=== PATIENT | female | born 1940 | race Caucasian/White ===

== ENCOUNTER → 2023-11-29 10:27 | Outpatient (REF) | payer MEDICARE, OTHER, SELFPAY ==
[2023-11-29 10:47] LABS: % Basophils 0.4 % (0-2); % Eosinophils 2.8 % (0-6); % Immature Granulocytes 0.4 % (0-0.5); % Lymphocytes 30.4 % (20.5-51.1); % Monocytes 14.2 % (1.7-9.3); % Neutrophils 51.8 % (42.2-75.2); Absolute Eosinophils 0.2 10^3/uL (0-0.7); Absolute Lymphocytes 1.7 10^3/uL (1.2-3.4); Absolute Monocytes 0.8 10^3/uL (0.1-0.6); Hematocrit 29.4 % (37.0-47.0); Hemoglobin 9.9 g/dL (12.0-16.0); Mean Corp Hgb Conc. 33.7 g/dL (33.0-37.0); Mean Corpuscular Hgb 30.7 pg (27.0-31.0); Nucleated Red Blood Cells % 0 %; Platelet Count 165 10^3/uL (130-400); Red Blood Cell Count 3.23 10^6/uL (4.20-5.40); Red Cell Dist. Width 12.8 % (11.5-14.5); White Blood Cell Count 5.7 10^3/uL (4.8-10.8)
[2023-11-29 10:56] LABS: Blood Urea Nitrogen 24 mg/dl (7-17); Calcium 9.3 mg/dl (8.4-10.2); Carbon Dioxide 25 mmol/L (22-30); Chloride 103 mmol/L (98-107); Glucose 87 mg/dl (70-99); Magnesium 1.8 mg/dl (1.6-2.3); Potassium 4.3 mmol/L (3.5-5.1); Sodium 137 mmol/L (135-145); eGFR > 60.00
[2023-11-29 11:29] LABS: TSH 3.24 uIU/ml (0.47-4.68)
== END ==
LOC: OLABN 10:27
PROVIDERS: ATTENDING PHYSICIAN Student in an Organized Health Care Education/Training Program
DX: I10 Essential (primary) hypertension (principal); E03.9 Hypothyroidism, unspecified; E83.42 Hypomagnesemia
CPT/HCPCS: 36415; 80048; 83735; 84443; 85025

== ENCOUNTER → 2023-12-04 09:49 | Outpatient (REF) | payer MEDICARE, OTHER, SELFPAY ==
[2023-12-04 13:16] LABS: Vitamin B12 451 pg/ml (239-931)
== END ==
LOC: OLABN 09:49
PROVIDERS: ATTENDING PHYSICIAN Student in an Organized Health Care Education/Training Program
DX: D64.9 Anemia, unspecified (principal); D51.0 Vitamin B12 deficiency anemia due to intrinsic factor deficiency
CPT/HCPCS: 36415; 82607

== ENCOUNTER → 2024-02-16 09:19 | Outpatient (REF) | payer MEDICARE, OTHER, SELFPAY ==
[2024-02-16 10:06] LABS: % Basophils 0.6 % (0-2); % Immature Granulocytes 0.4 % (0-0.5); % Lymphocytes 36.7 % (20.5-51.1); % Monocytes 13.6 % (1.7-9.3); % Neutrophils 44.7 % (42.2-75.2); Absolute Eosinophils 0.2 10^3/uL (0-0.7); Absolute Lymphocytes 1.9 10^3/uL (1.2-3.4); Absolute Monocytes 0.7 10^3/uL (0.1-0.6); Absolute Neutrophils 2.3 10^3/uL (1.4-6.5); Hematocrit 25.8 % (37.0-47.0); Hemoglobin 8.4 g/dL (12.0-16.0); Mean Corp Hgb Conc. 32.6 g/dL (33.0-37.0); Mean Corpuscular Hgb 29.6 pg (27.0-31.0); Mean Corpuscular Volume 90.8 fL (81.0-99.0); Mean Platelet Volume 10.6 fL (7.4-10.4); Nucleated Red Blood Cells % 0 %; Platelet Count 177 10^3/uL (130-400); Red Blood Cell Count 2.84 10^6/uL (4.20-5.40); Red Cell Dist. Width 12.8 % (11.5-14.5); White Blood Cell Count 5.2 10^3/uL (4.8-10.8)
[2024-02-16 10:22] LABS: Iron 60 ug/dl (37-170)
[2024-02-16 10:32] LABS: Percent Saturation 29 % (20-50); Total Iron Binding Capacity 204 ug/dl (265-497)
== END ==
LOC: OLABN 09:19
PROVIDERS: ATTENDING PHYSICIAN Student in an Organized Health Care Education/Training Program
DX: E46 Unspecified protein-calorie malnutrition (principal)
CPT/HCPCS: 36415; 82728; 83540; 83550; 85025

== ENCOUNTER → 2024-03-19 10:29 | Outpatient (REF) | payer MEDICARE, OTHER, SELFPAY ==
[2024-03-19 11:39] LABS: Hematocrit 26.4 % (37.0-47.0); Hemoglobin 8.6 g/dL (12.0-16.0); Mean Corp Hgb Conc. 32.6 g/dL (33.0-37.0); Mean Corpuscular Hgb 30.5 pg (27.0-31.0); Mean Corpuscular Volume 93.6 fL (81.0-99.0); Mean Platelet Volume 10.4 fL (7.4-10.4); Platelet Count 165 10^3/uL (130-400); Red Blood Cell Count 2.82 10^6/uL (4.20-5.40); Red Cell Dist. Width 13.4 % (11.5-14.5)
[2024-03-19 12:11] LABS: Iron 49 ug/dl (37-170)
== END ==
LOC: OLABN 10:29
PROVIDERS: ATTENDING PHYSICIAN Student in an Organized Health Care Education/Training Program
DX: D50.9 Iron deficiency anemia, unspecified (principal)
CPT/HCPCS: 36415; 82728; 83540; 85027

== ENCOUNTER 2024-07-12 08:11 | Day surgery (SDC) | payer MEDICARE, OTHER, SELFPAY ==
[2024-07-12 08:31] VITALS: BMI 20.4
[2024-07-12 08:45] VITALS: BP 193/116
[2024-07-12 08:52] LABS: Hematocrit 32.5 % (37.0-47.0); Hemoglobin 10.8 g/dL (12.0-16.0); Mean Corp Hgb Conc. 33.2 g/dL (33.0-37.0); Mean Corpuscular Hgb 28.9 pg (27.0-31.0); Mean Corpuscular Volume 86.9 fL (81.0-99.0); Mean Platelet Volume 9.8 fL (7.4-10.4); Platelet Count 201 10^3/uL (130-400); Red Blood Cell Count 3.74 10^6/uL (4.20-5.40); Red Cell Dist. Width 13.2 % (11.5-14.5); White Blood Cell Count 6.9 10^3/uL (4.8-10.8)
[2024-07-12 09:05] VITALS: BP 193/116
[2024-07-12 09:20] VITALS: BP 179/101
[2024-07-12 09:20] LABS: ALT (SGPT) < 10 U/L (0-35); AST (SGOT) 18 U/L (14-36); Alkaline Phosphatase 96 U/L (38-126); Blood Urea Nitrogen 15 mg/dl (7-17); Calcium 9.8 mg/dl (8.4-10.2); Carbon Dioxide 26 mmol/L (22-30); Chloride 100 mmol/L (98-107); Estimated Creatinine Clearance 55 ml/min; Glucose 94 mg/dl (70-99); Potassium 4.5 mmol/L (3.5-5.1); Sodium 138 mmol/L (135-145); Total Bilirubin 0.6 mg/dl (0.2-1.3); eGFR > 60.00
[2024-07-12 12:45] VITALS: BP 148/99
[2024-07-12 12:52] VITALS: BP 148/99
[2024-07-12 13:01] VITALS: BP 116/96
--- NOTE | 2024-07-12 13:19 | ITS.CL.PACE ---
Subscription Agent - Pacemaker Implant
Pacemaker Implant
Procedure Report:
Primary Care: Bari Lipscomb DO
Procedure Date: 07/12/2024
Name of procedure:
1. Device Revision: Dual Chamber Pacemaker
2. Pulse Generator Change
History:
See H&P for full details.
Patient is a pleasant 84-year-old female with a past medical history significant for hypertension, hyperlipidemia, hypothyroidism, history of stroke, permanent atrial fibrillation on Eliquis, sick sinus syndrome status post dual-chamber left-sided
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
Methods:
After informed consent was obtained, the patient was brought to the EP laboratory in a postabsorptive, nonsedated state. Peripheral IV access was established. Prophylactic antibiotics were administered prior to incision. Continues ECG, blood
pressure, and pulse oximetry were initiated. Cardioversion patch electrodes were placed on the patient's chest and back. A grounding patch was applied to the skin. Sedation was administered by anesthesia services.
The left chest was prepared and draped in a sterile fashion. A 'time out' was called. Local anesthesia was injected in the subcutaneous tissue in the infraclavicular area. An incision was made into the chronic scar. With cautious attention to the
leads, the subcutaneous tissue was dissected the level of the device capsule. The capsule was opened, the device was explanted and disconnected from the leads. The leads were inspected and found to be free of visible defect. The leads were tested
and found to have adequate pacing and sensing parameters, consistent with pre-procedure measurements.
The pocket was flushed with antibiotic solution and hemostasis was assured. The generator was connected to the leads and placed inside the pocket. The wound was closed with 3 running layers of absorbable suture and steri-strips were applied to the
skin.
Following the procedure, the patient was taken to the recovery area in stable condition. No complications were noted.
Lead parameters and device programming:
- RA Lead (Medtronic, model: 4574, SN# [id number]): Sensing 1.8 mV, Pacing threshold AF, Imp 475 Ohm
- RV Lead (Medtronic, model: 4074, SN# [id number]): Sensing 2.9 mV, Pacing threshold 1.0 V at 0.4 ms, Imp 494 Ohm
- Device: Medtronic pacemaker model: W1DR01, SN# [id number], programmed AAIR-DDDR, 60-130 ppm, mode switch on
- Explanted device: Medtronic [id number] [id number]
Recommendations:
1. Discharge home when stable with instructions for site care
2. Follow-up will be arranged in our office 7-10 days post-discharge for incision check
Fadi Umanzor DO
Clinical Cardiac Electrophysiology
Copy to: Bari Lipscomb DO
== END 2024-07-12 13:37 | disposition home or self-care (01) ==
LOC: CATH 08:11
PROVIDERS: ATTENDING PHYSICIAN Internal Medicine Cardiovascular Disease; FAMILY PHYSICIAN Student in an Organized Health Care Education/Training Program
DX: Z45.010 Encounter for checking and testing of cardiac pacemaker pulse generator [battery] (principal); Z79.01 Long term (current) use of anticoagulants; I48.21 Permanent atrial fibrillation; Z86.73 Personal history of transient ischemic attack (TIA), and cerebral infarction without residual deficits; E03.9 Hypothyroidism, unspecified; E78.5 Hyperlipidemia, unspecified; I10 Essential (primary) hypertension
CPT/HCPCS: 33228; 80053; 85027; 93005; C1785

== ENCOUNTER → 2024-11-27 10:22 | Outpatient (REF) | payer MEDICARE, OTHER, SELFPAY ==
[2024-11-27 11:01] LABS: % Basophils 0.3 % (0-2); % Eosinophils 2.2 % (0-6); % Immature Granulocytes 0.3 % (0-0.5); % Monocytes 11.4 % (1.7-9.3); % Neutrophils 57.8 % (42.2-75.2); Absolute Eosinophils 0.1 10^3/uL (0-0.7); Absolute Lymphocytes 1.7 10^3/uL (1.2-3.4); Absolute Monocytes 0.7 10^3/uL (0.1-0.6); Absolute Neutrophils 3.4 10^3/uL (1.4-6.5); Hematocrit 29.6 % (37.0-47.0); Hemoglobin 9.8 g/dL (12.0-16.0); Mean Corp Hgb Conc. 33.1 g/dL (33.0-37.0); Mean Corpuscular Hgb 30.1 pg (27.0-31.0); Mean Corpuscular Volume 90.8 fL (81.0-99.0); Mean Platelet Volume 11.4 fL (7.4-10.4); Nucleated Red Blood Cells % 0 %; Platelet Count 165 10^3/uL (130-400); Red Blood Cell Count 3.26 10^6/uL (4.20-5.40); Red Cell Dist. Width 13.2 % (11.5-14.5); White Blood Cell Count 5.9 10^3/uL (4.8-10.8)
[2024-11-27 11:38] LABS: Blood Urea Nitrogen 27 mg/dl (7-17); Calcium 9.2 mg/dl (8.4-10.2); Carbon Dioxide 23 mmol/L (22-30); Chloride 104 mmol/L (98-107); Glucose 84 mg/dl (70-99); Magnesium 1.9 mg/dl (1.6-2.3); Potassium 4.4 mmol/L (3.5-5.1); Sodium 135 mmol/L (135-145); eGFR > 60.00
== END ==
LOC: OLABN 10:22
PROVIDERS: ATTENDING PHYSICIAN Student in an Organized Health Care Education/Training Program
DX: I10 Essential (primary) hypertension (principal); E03.9 Hypothyroidism, unspecified; E83.42 Hypomagnesemia
CPT/HCPCS: 36415; 80048; 83735; 84443; 85025

== ENCOUNTER 2024-12-16 13:26 | Inpatient (IN) | payer MEDICARE, OTHER, SELFPAY ==
[2024-12-16] VITALS (39 sets, daily range): BP systolic 81–138; BP diastolic 41–69; BMI 23.3; BMI 21.4
--- NOTE | 2024-12-16 10:24 | ED.GENMED ---
History of Present Illness
General
Chief Complaint: Fever
Source: ambulance crew
Exam Limitations: altered mental status
Time Seen by Provider: 12/16/24 10:24
Nursing documentation reviewed up to this point in time: agreed with
History of Present Illness
History of Present Illness:
84-year-old female presents via EMS from [facility][1] for reported change in mental state, lethargy, fever, no transport papers left with patient. Pt unable to give history.
Patient is lethargic, responds appropriately to some questions, knows she is in hospital, she denies pain, she cannot state the date or her birthday
Past History
Past History
ED Past Medical History: Arrthythmia (Afib), CVA, Hypercholesterolemia, Hypothyroidism and Other (Anemia of chronic disease)
ED Past Surgical History: Cardiac (Pacemaker) and Other (Left eye surgeries x 20)
Social History
Tobacco: Non-smoker
Alcohol: Daily
Personal: Single
Living: snf
Employment: Retired
Family History
Family History: Other (reviewed and non-contributory)
Review of Systems
Review of Systems
Allergies reviewed?: Yes
Unable to obtain full review of systems at this time due to: due to acuity
Other source history: ambulance crew
Constitutional: Reports fever and fatigue
Respiratory: Denies trouble breathing
Cardiac: Denies chest pain
ABD/GI: Denies abdominal pain, vomiting or diarrhea
: Reports bleeding (On straight cath urine was david blood)
Musculoskeletal: Denies edema
Skin: Reports no symptoms
Neurological: Reports no symptoms (Generally lethargic but arousable and weakly answers questions)
Phy Exam
Physical Exam
Physical Exam:
GENERAL: Lethargic, oriented x 2
CONSTITUTIONAL: Temperature 101.8 rectally
EYES: clear, conjunctivae normal
ENMT: Dry mucus membranes
RESPIRATORY: Regular respirations, nonlabored, lungs clear.
CARDIOVASCULAR: Regular rate and rhythm, + murmur, no rubs.
GI: Soft, nontender, normal BS
MUSCULOSKELETAL: No edema
SKIN: Warm, dry, pale
PSYCH: Lethargic
NEUROLOGIC: Lethargic, follows commands, moving all extremities
Course
Orders/Labs/Results
Orders:
Orders
12/16/24
Electrocardiogram (*1) Stat
Reason for Study: Chest Pain
Comment: DONE NO ORDER ENTERED
12/16/24 10:26
Straight cath- Treatment ONCE
12/16/24 10:39
COVID-19 Antigen Urgent
Source: Nasal Swab
Complete Blood Count/With Diff Urgent
Comprehensive Metabolic Panel Urgent
Influenza A+B Rapid Molecular Urgent
EMMA Source: Nasal Swab
Specimen Description:
12/16/24 11:10
Urinalysis Reflex To Culture Urgent
Date Specimen was Collected: 12/16/24
Time Specimen was Collected: 11:07
Urine Microscopic Reflex Cult Urgent
Urine Culture Urgent
EMMA Source: U
Specimen Description:
Date Specimen was Collected: 12/16/24
Time Specimen was Collected: 11:07
12/16/24 11:14
0.9% Sodium Chloride 250 ml [Nss] 250 ml IV BOLUS
12/16/24 11:15
CR Chest Portable - 1 View Urgent
Comment:
Reason For Exam: hypotension, fever
Reason Study Needs to be Portable: Patient Unstable
12/16/24 11:17
0.9% Sodium Chloride 1000 ml [Nss] 1,500 ml IV NOW STA
12/16/24 11:20
Cefepime HCl [Maxipime] 1,000 mg IV NOW STA
12/16/24 11:29
Lactic Acid Q4H
Comment: CANCEL 2nd LACTIC ACID IF 1st LACTIC ACID IS LESS THAN 2
Blood Culture Q30M
EMMA Source: Blood/Venous
Specimen Description:
Blood Culture Q30M
EMMA Source: Blood/Venous
Specimen Description:
12/16/24 11:31
Type And Crossmatch [Type+Screen] Urgent
Protime/PTT Urgent
Troponin I Urgent
12/16/24 11:54
ABO2 Urgent
BBK Wristband Number:
Associate notified that ABO2 has been ordered: ATIFF-ER
Date: 12/16/24
Time: 11:43
Pump Service Supervisor ID: [id number]
12/16/24 12:05
Sterile Water [Sterile Water For Injection] 10 ml .[address] [facility]
12/16/24 13:07
CARDIOLOGY CONSULT Routine
Consulting Provider: Errol Chaudhary
Was physician already notified: Yes
Reason for consult: poss nstemi sepsis, uti, hemorrhagic cystitis, SHANDA, hypertensive
12/16/24 13:10
Admit/Transfer Patient As Directed
Co-Sign Provider:
Level of Care: Inpatient admission
Assign to:: ICU
Physician / Group: kamaljit correa
Diagnosis: Septic shock, NSTEMI, hypoxic resp fail LLL PNA hemorrhagic cystitis
Reason for Hospitalization: Septic shock, NSTEMI, hypoxic resp fail LLL PNA hemorrhagic cystitis
Expected length of stay greater than two midnights?: Yes
ELOS- Estimated Length of Stay in days: 5
I certify the patient meets the requirements for IP care: Yes
Code Status As Directed
Resuscitation Status: Do not resuscitate
Based on pt advanced directive or healthcare POA form: Yes
Physician note:: Per snf record she was prior do not hospitalize but family reversed according to
nurse
VANCOMYCIN Pharmacy to Dose [VANCOCIN Pharmacy to Dose] 1 each Pharmacy To Prepare [Call Pharmacy To Prepare] 0 ml IV PER PROTOCOL
DNR Bracelet Application ONCE
12/16/24 13:15
0.9% Sodium Chloride 1000 ml [Nss] 1,000 ml IV 80 mls/hr
PRN Pain Medication Management As Directed
May give lesser potent ordered pain med per pt: Yes
preference::
Protocol:: Medication orders for pain may be administered in a
manner that supports deferring to patient preference
when the pt is:
- Requesting an ordered lesser potent pain medication.
Least to most potent pain medications are defined
as: acetaminophen < NSAID < tramadol < opioids
(morphine, oxycodone, hydromorphone).
- Requesting a lesser dose of the same medication IF
ORDERED.
- Requesting a less intrusive route of administration
if both routes are prescribed by the provider (PO <
IV).
12/16/24 13:25
UROLOGY CONSULT Routine
Consulting Provider: Toro Barrera
Was physician already notified: Yes
Comment: UTI possible hemorrhagic cystitis
12/16/24 13:57
Troponin I Urgent
12/16/24 16:30
EKG [Electrocardiogram (*1)] Routine
Reason for Study: Chest Pain
12/16/24 16:37
Lactic Acid Q4H
Comment: CANCEL 2nd LACTIC ACID IF 1st LACTIC ACID IS LESS THAN 2
Troponin I Urgent
12/16/24 16:49
Acetaminophen [Tylenol] 650 mg PO Q4HPRN PRN
Bisacodyl [Dulcolax] 10 mg RECTAL [id number] PRN
Docusate Sodium [Colace] 100 mg PO DAILYPRN PRN
12/16/24 16:49
Activity As Directed
Activity Level: With Assistance
Bladder Scan As Directed
Follow Bladder Retention/Intermittent Cath Algorithm?: Yes
PRN if no void in __ hours: 6
Frequency: Per Retention Algorithm
If Bladder Scan Result >: 400
then:: Straight cath
Fentanyl Patch Confirmation BID@0700,1900
Intake/ Output As Directed
Frequency: Per unit guidelines
Pneumatic Compression Sleeves As Directed
Type: Knee high
Straight Cath As Directed
Frequency: Per Retention Algorithm
Additional Instructions: straight cath as needed per acute urinary retention algorithm for 24 hrs
Additional Instructions: for bladder scan greater than 400 mL
Vital Signs As Directed
Frequency: Per unit guidelines
Weight As Directed
Frequency: Daily
O2 Therapy [RESP] Routine
Nasal Cannula Liter Flow: 4 LPM
Titrate/Wean O2 to maintain O2 sat greater than (%): 92
Pulse Ox/spot Check [RESP] Routine
Quantity: 1
Rx Incentive Spirometry [RESP] Routine
Frequency: q1h while awake
Pt Eval And Treat Routine
Activity Level: As Tolerated
Speech Therapy Eval & Treat Routine
DX Deep Vein Thrombosis Video Routine
12/16/24 18:00
FentaNYL 12 MCG/HR PATCH [Duragesic 12 Mcg/Hr Patch] 1 patch TRANSDERM Q72H
12/16/24 22:00
Gabapentin [Neurontin] 200 mg PO TID
12/17/24 05:43
Cardiovascular Evaluation IN AM
Complete Blood Count/With Diff IN AM
Comprehensive Metabolic Panel IN AM
Magnesium IN AM
TSH Reflex To Free T4 IN AM
12/17/24 06:00
Respiratory Culture/Gram Stain IN AM
EMMA Source: Sputum
Specimen Description:
Levothyroxine [Synthroid] 50 mcg PO DAILY@0600
12/17/24 08:00
Ferrous Sulfate [Feosol] 325 mg PO DAILY
Lidocaine [Lidocaine 4% Patch] 2 patch TOPICAL DAILY
Apply Lidocaine patch(s) to:: lower back
mirabegron [Myrbetriq] See Dose Instructions PO DAILY
12/17/24 22:00
Famotidine [Pepcid] 20 mg PO Q48H
12/18/24 06:00
Complete Blood Count/With Diff IN AM
Comprehensive Metabolic Panel IN AM
12/19/24 06:00
Complete Blood Count/With Diff IN AM
Comprehensive Metabolic Panel IN AM
12/19/24 18:00
REMOVE fentaNYL PATCH [Remove Duragesic Patch] See Dose Instructions REMOVE Q72H
12/20/24 06:00
Complete Blood Count/With Diff IN AM
Comprehensive Metabolic Panel IN AM
12/21/24 06:00
Complete Blood Count/With Diff IN AM
Comprehensive Metabolic Panel IN AM
Abnormal Lab Results
12/16/24 12/16/24 12/16/24
10:39 11:10 11:29
WBC 18.5 H 10^3/uL
(4.8-10.8)
RBC 3.18 L 10^6/uL
(4.20-5.40)
Hgb 9.6 L g/dL
(12.0-16.0)
Hct 30.1 L %
(37.0-47.0)
MCHC 32.3 L g/dL
(33.0-37.0)
MPV 10.8 H fL
(7.4-10.4)
Abs Immat Gran (auto) 0.2 H 10^3/uL
(0-0.05)
Absolute Neuts (auto) 15.9 H 10^3/uL
(1.4-6.5)
Absolute Lymphs (auto) 0.8 L 10^3/uL
(1.2-3.4)
Absolute Monos (auto) 1.7 H 10^3/uL
(0.1-0.6)
Immature Gran % 0.8 H %
(0-0.5)
Neutrophils % 86.1 H %
(42.2-75.2)
Lymphocytes % 3.7 L %
(20.5-51.1)
PT
APTT
Carbon Dioxide 19 L mmol/L
(22-30)
BUN 45 H mg/dl
(7-17)
Creatinine 1.6 H mg/dL
(0.6-1.0)
Glucose 200 H mg/dl
(70-99)
Lactic Acid 3.3 H mmol/L
(0.7-2.0)
Troponin I
Total Protein 6.0 L g/dl
(6.3-8.2)
Albumin 3.2 L g/dl
(3.5-5.0)
Ur Occult Blood Reflex 4+ A
(Negative)
Leukocyte Esterase Rfl 2+ A
(Negative)
Urine RBC >100 A /HPF
(0-2)
Urine WBC (Reflex) >100 A /HPF
(0-5)
Urine Bacteria (Reflex) Many A
(Negative)
Urine Albumin (Reflex) 4+ A
(Neg - Trace)
12/16/24
11:31
WBC
RBC
Hgb
Hct
MCHC
MPV
Abs Immat Gran (auto)
Absolute Neuts (auto)
Absolute Lymphs (auto)
Absolute Monos (auto)
Immature Gran %
Neutrophils %
Lymphocytes %
PT 24.0 H Sec
(11.4-14.6)
APTT 44.7 H Sec
(23.4-35.0)
Carbon Dioxide
BUN
Creatinine
Glucose
Lactic Acid
Troponin I 0.755 H* ng/ml
Total Protein
Albumin
Ur Occult Blood Reflex
Leukocyte Esterase Rfl
Urine RBC
Urine WBC (Reflex)
Urine Bacteria (Reflex)
Urine Albumin (Reflex)
12/16/24 10:39
12/16/24 10:39
Vital Signs
Initial and Last Documented VS:
Initial Vital Signs
BP Pulse Ox
96/50 90
12/16/24 10:26 12/16/24 10:26
Last Documented Vital Signs
Temp Pulse Resp BP Pulse Ox
100 F 71 18 119/59 97
12/17/24 07:45 12/17/24 06:15 12/17/24 06:15 12/17/24 06:00 12/17/24 06:15
MDM/Problems Addressed
Differential Diagnosis Includes:
UTI, pneumonia, flu, COVID, SIRS, sepsis
MDM/Problems Addressed:
84-year-old female with history of A-fib on Eliquis, HTN, HLD, pacemaker, hypothyroid, hearing impaired presents via EMS from [facility][1] for reported change in mental state, lethargy, fever, no transport papers left with patient. Pt unable to
give history.
Patient is lethargic, responds appropriately to some questions, knows she is in hospital, she denies pain, she cannot state the date or her birthday
Temperature 101.8 rectally. Patient reportedly was given Tylenol prior to transport here
11:10 AM:
CBC: WBC 18.5, Hgb 9.6 which is her baseline
CMP: BUN/creat 45/1.6, new acute renal failure
Sepsis protocol started
BP 81/41, HR paced at 60, Pulse ox 88% RA on arrival now 95% on 4 L [place]
Flu negative
Influenza negative
12:30 AM:
Plan: Admit: SIRS, UTI, elevated troponin, david hematuria,
Hospitalist notified of admission.
*Critical Care Note
Total Time (30-74mins, 75-104mins- exclusive of procedures): Not Applicable
ED Attending Note
-
Portions of this chart may have been created with voice recognition software.� Occasional wrong word or��sound alike� substitutions may have occurred due to the inherent limitations of voice recognition software.
Discharge Plan
Departure
Patient Disposition: Admit
Date of Disposition: 12/16/24
Time of Disposition: 12:32
Admit to: IMU
Presentation/result/management discussed w/ accepting MD/DO: Hospitalist
Condition: Serious
Covid-19: Negative COVID-19
Discharge Problem:
SIRS (systemic inflammatory response syndrome), Elevated troponin, Acute UTI, David hematuria
Interventions
Interventions:
*Risk Screen - Suicide Last Done: 12/16/24 10:27
*General Assessment Last Done: 12/16/24 10:27
*Neglect/Abuse Screening Last Done: 12/16/24 10:27
ED- Fall Risk Assessment Last Done: 12/16/24 17:18
*ED COVID-19 Vaccine History Last Done: 12/16/24 10:38
*Nursing Disposition Last Done: 12/16/24 17:18
ED- Neurological Assessment Last Done: 12/16/24 10:30
ED-Skin Assessment Last Done: 12/16/24 12:08
Discharge Date and Time
Discharge Date/Time: 12/16/24 17:19
[2024-12-16 10:54] LABS: % Basophils 0.1 % (0-2); % Immature Granulocytes 0.8 % (0-0.5); % Lymphocytes 3.7 % (20.5-51.1); % Monocytes 9.3 % (1.7-9.3); % Neutrophils 86.1 % (42.2-75.2); Absolute Immature Granulocytes 0.2 10^3/uL (0-0.05); Absolute Lymphocytes 0.8 10^3/uL (1.2-3.4); Absolute Monocytes 1.7 10^3/uL (0.1-0.6); Absolute Neutrophils 15.9 10^3/uL (1.4-6.5); Hematocrit 30.1 % (37.0-47.0); Hemoglobin 9.6 g/dL (12.0-16.0); Mean Corp Hgb Conc. 32.3 g/dL (33.0-37.0); Mean Corpuscular Hgb 29.9 pg (27.0-31.0); Mean Corpuscular Volume 92.5 fL (81.0-99.0); Mean Platelet Volume 10.8 fL (7.4-10.4); Nucleated Red Blood Cells % 0 %; Platelet Count 134 10^3/uL (130-400); Red Blood Cell Count 3.18 10^6/uL (4.20-5.40); Red Cell Dist. Width 13.8 % (11.5-14.5); White Blood Cell Count 18.5 10^3/uL (4.8-10.8)
[2024-12-16 11:13] LABS: AST (SGOT) 24 U/L (14-36); Albumin 3.2 g/dl (3.5-5.0); Alkaline Phosphatase 68 U/L (38-126); Blood Urea Nitrogen 45 mg/dl (7-17); Calcium 9.1 mg/dl (8.4-10.2); Carbon Dioxide 19 mmol/L (22-30); Chloride 104 mmol/L (98-107); Estimated Creatinine Clearance 20 ml/min; Glucose 200 mg/dl (70-99); Potassium 3.8 mmol/L (3.5-5.1); Sodium 136 mmol/L (135-145); Total Bilirubin 0.7 mg/dl (0.2-1.3); eGFR 31.21
[2024-12-16 11:14] LABS: COVID-19 Antigen Negative (Negative)
[2024-12-16 11:19] LABS: ALT (SGPT) < 30 U/L (0-35)
--- NOTE | 2024-12-16 11:20 | PHANOTE ---
med rec note- called [facility] to have med list fax over, ems took off with all patient paperwork
[2024-12-16] MEDS: NSS 1500 ML IV (11:29)
[2024-12-16 11:31] LABS: Urine Albumin 4+ (Neg - Trace); Urine Bilirubin Negative (Negative); Urine Character Bloody (Clear); Urine Color Red; Urine Glucose Negative (Negative); Urine Ketone Negative (Negative); Urine Leukocyte 2+ (Negative); Urine Nitrite Negative (Negative); Urine Occult Blood 4+ (Negative); Urine Specific Gravity 1.015 (<1.030); Urine Urobilinogen Negative (Neg - 1+)
[2024-12-16 11:41] LABS: Urine Mucus Many
[2024-12-16 11:42] LABS: Urine Urothelial Cell 0-2 /LPF (FEW)
[2024-12-16 11:43] LABS: Urine Bacteria Many (Negative); Urine Red Blood Cell >100 /HPF (0-2); Urine White Cell >100 /HPF (0-5)
[2024-12-16 11:55] LABS: INR 2.13
[2024-12-16 11:56] LABS: APTT 44.7 Sec (23.4-35.0)
[2024-12-16 12:07] LABS: Lactic Acid 3.3 mmol/L (0.7-2.0)
[2024-12-16] MEDS: MAXIPIME 1000 MG IV (12:11)
[2024-12-16 12:15] LABS: Urine Squamous Cell 0-2 /LPF (Few)
[2024-12-16 12:22] LABS: Troponin I 0.755 ng/ml
--- NOTE | 2024-12-16 12:49 | HPS.HSE ---
Family Physician
-
Family Physician: Mohan Padilla MD
Chief Complaint
-
Chest pain, fever, lethargy, malaise, hypotension
History of Present Illness
84-year-old female from [facility] who was sent complaining of chest pain earlier today to the nurse practitioner around 830 this morning along with lethargy, malaise and fever. She was given Tylenol for fever and sent to ER for evaluation she
does have past medical history of dementia she is oriented to first and last name only in the ER she was noted to have 101.8 F temperature hypotensive 87/44. She had straight cath urine with 75 cc of bloody urine obtained. She was noted to be
hypoxic at 89% on room air requiring 4 L of nasal cannula and chest x-ray showing a possible left lung PNA. She was given 2 L IV NSS for SHANDA with creat of 1.6. She complained of chest pain earlier to nurse practitioner at alf she
currently denies however her troponin is elevated at 0.755 we will trend. She denies current headache, sore throat, chest pain, palpitations, shortness of breath, abdominal pain, nausea, vomiting, diarrhea. She does have a cough during exam. She
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
dysfunction uses a Pavel wheelchair, chronic ptosis left eyelid, mechanical soft diet
Medical History
Past Medical History
Past Medical History: Reports Other
Additional Past Medical History:
Dementia oriented to first and last name only thinks it is 1987
hypertension
overactive bladder
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
chronic normocytic anemia
chronic back pain on chronic opiates
Paroxysmal A-fib on Eliquis
CVA
HLD
chronic ambulatory dysfunction uses Pavel wheelchair
chronic ptosis left eyelid
Mechanical soft diet
Past Surgical History: Reports Other
Additional Past Surgical History:
Hysterectomy
Permanent pacemaker 2012 tachybradycardia syndrome
Right cataract extraction 2014
Social History
Tobacco: Non-smoker
Drug: None
Living: [facility] ([facility])
Employment: Retired
Family History
Family History: Unable to Obtain
Allergies / Home Medications
Allergies reflects when Allergies were last updated in [facility].
Home Medications with original date entered in [facility]
Allergy/Medication List:
Allergies
Allergy/AdvReac Type Severity Reaction Status Date / Time
lisinopril Allergy Severe angioedema Verified 07/12/24 09:32
Home Medications
levothyroxine 50 mcg tablet 50 mcg PO DAILY 11/06/15
verapamil 120 mg tablet,extended release 180 mg PO DAILY 11/06/15
acetaminophen 325 mg tablet 650 mg PO Q4HPRN PRN pain 07/12/24
apixaban 2.5 mg tablet (Eliquis) 2.5 mg PO BID 07/12/24
ascorbic acid (vitamin C) 500 mg tablet 500 mg PO BID 07/12/24
famotidine 20 mg tablet 20 mg PO HS 07/12/24
fentanyl 12 mcg/hr transdermal patch 1 patch transdermal Q72H 07/12/24
ferrous sulfate 325 mg (65 mg iron) tablet 325 mg PO DAILY 07/12/24
mirabegron 50 mg tablet,extended release 24 hr (Myrbetriq) 50 mg PO DAILY 07/12/24
bisacodyl 10 mg rectal suppository (Dulcolax (bisacodyl)) 10 mg IA [id number] PRN if no bm aftr mom 12/16/24
docusate sodium 100 mg capsule 100 mg PO DAILYPRN PRN constipation 12/16/24
gabapentin 100 mg capsule 100 mg PO TID 12/16/24
gabapentin 400 mg tablet 400 mg PO TID 12/16/24
lidocaine 5 % topical patch 2 patch topical DAILY lower back 12/16/24
magnesium hydroxide 400 mg/5 mL oral suspension (Milk of Magnesia) 2,400 mg PO HSPRN PRN constipation 12/16/24
phenylephrine 0.25 %-pramoxine 1 %-glycerin-wh.petrolatum rectal cream (Preparation H Maximum Strength) 1 applic IA BIDPRN PRN hemmorriods 12/16/24
Review of Systems
-
History Source: Patient, [facility] and Other (Emergency room nurse)
A 12 point ROS was completed and negative except as noted: Yes
Constitutional: Reports Fever and Chills
EENT: Reports Other (Chronic ptosis left eyelid); Denies Sore Throat or Runny Nose
Respiratory: Reports Cough; Denies Trouble Breathing
Cardiac: Reports Chest Pain (Complained of chest pain earlier today at alf denies now); Denies Palpitations or Syncope
Abdomen/GI: Denies Abdominal Pain, Nausea, Vomiting, Diarrhea or Constipated
: Reports Other (Hematuria on straight cath 75 cc); Denies Dysuria, Frequency or Flank Pain
Musculoskeletal: Denies Joint Pain, Joint Swelling or Edema
Skin: Denies Itching or Rash
Neurological: Reports Weakness (Generalized); Denies Dizzy or Headache
Endocrine: Reports No Symptoms
Hematologic/Lymphatic: Reports No Symptoms
Psych: Reports Calm
Physical Exam
Vital Signs
Vital Signs
Temp Pulse Resp BP Pulse Ox
101.8 F H 61 22 87/44 93
12/16/24 11:08 12/16/24 11:01 12/16/24 11:01 12/16/24 11:01 12/16/24 11:08
Physical Exam
General: Conversant, Fever and Chills; No Pain
HEENT: NormoCephalic, Anicteric, PERRLA, [place] Conjunctivae, Oxygen (4 L nasal cannula) and Other (Chronic ptosis); No Neck Nontender
Respiratory: Clear; No Wheezes, Rales or Rhonchi
Cardiac: S1/S2 and Other; No Murmur, Rub, Gallop or Peripheral Edema
Breast: Deferred by me
GI: Soft, Non Tender, Non Distended, Normal Bowel Sounds and No Hepatosplenomegaly
Rectal: Deferred by Provider
Genito-urinary: Deferred by me
Musculoskeletal: No Clubbing, No Cyanosis and No Edema
Skin: Warm and Dry; No Rash or Jaundice
Neuro: Awake, Alert, Oriented (To first and last name only thinks it is 1990 does not know where she is at the president is has difficulty with review of systems and what happened earlier today), No Motor Deficits (Moves all extremities in bed), No
Sensory Deficits and Other (Chronic left upper eyelid ptosis); No Slurred Speech, Facial Droop, Tremors or Sedated
Psych: Calm
Laboratory Results
-
12/16/24 10:39
12/16/24 10:39
Laboratory Results
PT 24.0 Sec (11.4-14.6) H 12/16/24 11:31
INR 2.13 12/16/24 11:31
APTT 44.7 Sec (23.4-35.0) H 12/16/24 11:31
Lactic Acid 3.3 mmol/L (0.7-2.0) H 12/16/24 11:29
Total Bilirubin 0.7 mg/dl (0.2-1.3) 12/16/24 10:39
AST 24 U/L (14-36) 12/16/24 10:39
ALT < 30 U/L (0-35) 12/16/24 10:39
Alkaline Phosphatase 68 U/L (38-126) 12/16/24 10:39
Troponin I 0.755 ng/ml H* 12/16/24 11:31
Impression/Plan
-
Impression/plan:
Admit to ICU
#Septic shock 2/2 UTI with possible Hemorrhagic cystitis
COVID/influenza negative
WBC 18.5 with left shift, 101.8F, 87/44, HR 61
Follow urine culture, blood cultures x 2
Straight cath urine 75 cc bloody in color obtained per ED nurse
-IV NSS 2000 cc bolus given in ED
-Continue IV NSS 100 cc/h, may require pressors
-Consult urology
-Consult speech swallow is on prior mechanical soft/thin liquids
-Hold Eliquis
-IV cefepime, IV vancomycin
-Follow CBC, CMP
#Acute hypotension secondary to septic shock/history essential HTN
-Hold lisinopril
-Patient given 2 L IV NSS in ER continue IV NSS 100 cc/h
-May require pressors due to BP 87/44
#Acute hypoxic respiratory insufficiency possible left lung PNA
89% RA, 93% 4 L nasal cannula
-IV cefepime, IV vancomycin
-Incentive spirometry
-Sputum culture
CXR: Subtle opacities within the left lung versus hypoventilatory changes. No significant pleural effusions or pneumothorax.
#SHANDA secondary to volume depletion/fever/septic shock
Creat 1.6 > 0.6
IV NSS 2 L given in ER
-Continue IV NSS 80 cc/h
-Follow BMP
#Elevated troponin possible NSTEMI difficult to ascertain given history of dementia could be also secondary to sepsis/hypoxia
Troponin 0.755 will trend
-Consult cardiology
#Chronic back pain on chronic opiates
-Continue fentanyl patch 28.8 mg due tomorrow 12/17/2024 then every 72 hours
-Continue gabapentin 500 mg 3 times daily
#Acute on chronic anemia�normocytic
Hgb 9.6, MCV 92.5Hemoglobin appears baseline
-Follow CBC
#Permanent Pacemaker-Tachybradycardia
#Paroxysmal A-fib
Hold Eliquis due to hematuria
#CVA Hx
-Continue BP control hold Eliquis due to cystitis
HLD
-Check lipid profile
-No reported statins
#Hypothyroidism
-Continue levothyroxine 50 mcg p.o. daily
-Check TSH with free T4 reflex
#Chronic ptosis left eyelid
DNR per alf records
--- NOTE | 2024-12-16 13:48 | PHA.VAN.IN ---
Assessment
- Assessment
Renal Function: Appears elevated from baseline (SCR 1.6 vs ~0.5-0.6)
Concomitant Antimicrobials: cefepime
Plan
- Plan
Initial / Loading Dose: 1500mg - administration pending
Maintenance Regimen: dosing by level
Monitoring: random 12/17 0600
MRSA Screen: Ordered per protocol
Pharmacokinetics Vancomycin I
- -
Patient Age: 84
Patient Sex: Female
Vancomycin Day #: 1
Indication: Pulmonary/Respiratory
Requesting Provider: Wale Taylor
Pertinent Antimicrobial Allergies:
no pertinent antibiotic allergies
Height / Weight:
Height 5 ft 2 in
Actual Weight 57.8 kg
- Vital Signs / Lab Results
Temp Pulse Resp BP Pulse Ox
99.7 F 61 22 87/44 95
12/16/24 13:16 12/16/24 11:01 12/16/24 11:01 12/16/24 11:01 12/16/24 13:16
Lab Results - Hematology
12/16/24
10:39
WBC 18.5 H
Lab Results - Chemistry
12/16/24
10:39
BUN 45 H
Creatinine 1.6 H
Estimated Creat Clear 20
Albumin 3.2 L
12/16/24
11:29
Lactic Acid 3.3 H
Lab Results - Urine
12/16/24
11:10
Urine Nitrite (Reflex) Negative
Leukocyte Esterase Rfl 2+ A
Urine WBC (Reflex) >100 A
Ur Squamous Epith Cells 0-2
Urine Bacteria (Reflex) Many A
Microbiology Results
12/16/24 10:39 Influenza Types A & B (BERNICE) - Final
Nasal Swab Negative for Influenza A & B, NAAT
Negative results must be combined with clinical observations
and patient history.
Nucleic Acid Amplification test (NAAT)performed on the
[employer] platform.
--- NOTE | 2024-12-16 14:56 | W.PN.UPDATE ---
Update Note
Progress Note Update
This is an addendum to the H&P written by Jennifer Taylor on 12/16/2024.� Patient seen and examined independently with RESIDUE FURNACE OPERATOR.
84-year-old female past medical history of atrial fibrillation with pacemaker, chronic back pain, hypothyroidism, hyperlipidemia, CVA, anemia of chronic disease, presenting from [facility] for change in mental status, lethargy and fever and
blood in the urine.� She reportedly had chest pain earlier today.
Patient with blood pressure 87/44.� Fever of 101.8.� Tachypneic and requiring 4 L oxygen.� Straight catheterization yielded 75 cc of david blood without clots.� Rhonchi on examination.
Labs show leukocytosis of 18.5.� Creatinine 1.6.� Lactic acid 3.3.� Troponin of 0.755.��
EKG shows ventricular paced rhythm.� Chest x-ray shows questionable subtle opacities on the left lung possibly hypoventilatory changes.
Presentation consistent with septic shock secondary to hemorrhagic cystitis.� Also possible pneumonia on the left side.� Also with SHANDA.� IV fluids.� Check blood cultures.� Vancomycin/cefepime.� Hold Eliquis.� Urology consulted. Check CT abdomen
pelvis.�
Troponin elevation also concerning for NSTEMI.� Trend troponins.� Cardiology consulted.
--- NOTE | 2024-12-16 16:09 | CON.CAR ---
Addendum entered and electronically signed by Errol Chaudhary MD 12/16/24 18:01:
Unfortunate 84-year-old woman who resides at [facility] sent to the emergency department with fever, possibly chest pain and elevated troponin of 1.62. CT of abdomen and pelvis shows coronary artery calcification, possible posterior lower lobe
pneumonia versus atelectasis and probable obstructing right ureteral calculus. Operative intervention is tentatively being considered.
PMH: Medtronic dual-chamber pacemaker with generator change in June 2024, permanent atrial fibrillation/flutter, orthostasis, history of hypertension, history of CVA, cognitive impairment, remote history of EtOH use disorder, hyperlipidemia
106/52, pulse 65, respiratory 22, temp 37.9, pulse 60s, sats 95%, poorly communicative, can state her first name but not her last, lungs are relatively clear but diminished, regular rate and rhythm, no obvious murmurs but limited exam, JVD hard to
assess, abdomen seems benign, not much edema
Hemoglobin is 9.6, white count is 18.5,
EKG: atrial flutter with ventricular pacing, second tracing shows flutter with left bundle branch block
Echocardiogram 2016: EF 55 to 60%,
Creatinine 1.6, potassium 3.8, BUN and creatinine 45 and 1.6, anion gap 13
Chest x-ray diminished lung volumes, possible left lower lobe infiltrate, dense aortic calcification and DJD
Impression:
Urosepsis with presumed pyelonephritis and obstructing right ureteral calculus
Elevated troponin, likely nonischemic myocardial injury from sepsis
Permanent atrial fibrillation/flutter with pacemaker
Dementia
Hypertension
Hyperlipidemia
Hypothyroidism
History of stroke
History of EtOH use disorder.
Plan:
At this point, do not think patient has an acute coronary syndrome, if needed can proceed to OR at elevated but not prohibitive cardiac risk.
Suspect that her troponin elevation relates more to sepsis and increased demand with non-ACS related myocardial injury/ischemia.
Her left bundle and paced rhythm make it difficult to exclude ECG changes. Will check echocardiogram. No evidence of heart failure at this time.
Hold Eliquis, restart when okay from urologic perspective.
We will interrogate pacemaker
Further management to be based upon the results of her clinical course and additional data.
Original Note:
Consultation
Consultation Request
Date/Time Consultation Requested: 12/16/24
Date/Time Consultation Performed: 12/16/24
Requesting Provider: Dr. Abel
Performing Provider: Dr. CATHLEEN Chaudhary
Reason for Consultation: Chest pain and elevated Troponin
Medical History
-
History of Present Illness:
Patient came to ER today from [facility] with complaints of fever and CP and cardiology is consulted for elevated troponin. Patient is a long-term resident at [facility]. Patient has a Medtronic DC PPM that was placed in 2012 and it was found to be at
[facility] via telephone transmissions resulting in cardiology office visit on 05/07/2024 and at that time patient was recommended for generator change as she appeared to be pacemaker dependent and it also appeared that she was in permanent A-fib/flutter at
that time. Patient then had successful Medtronic DC PPM generator change 07/12/2024 and was transferred back to her long-term. Patient does not come to the office for cardiology visits and we rely solely on pacemaker transmissions from the
long-term. Patient previously written as DNR and do not hospitalize, but was sent to ER today with fever and CP. Initial troponin 0.755 and then 1.29. ECG is paced. Patient is a poor historian. In the meantime the patient was found to
have a calculus in the right ureteropelvic junction and is being recommended urology evaluation for possible ureteral stenting or stone extraction.
PMH:
Medtronic DC PPM, placed in 2012, generator change 07/12/24
PPM dependent
Permanent A-fib/typical flutter
Chronic Eliquis OAC
h/o orthostatic hypotension
HTN
Hyperlipidemia
Hypothyroidism
History of CVA
Remote history of EtOH use disorder
Past Medical History
Past Medical History: Other (in HPI)
Past Surgical History: Cardiac (Medtronic PPM) and Gynecological (hysterectomy)
Social History
Tobacco: Non-Smoker
Alcohol: None
Drug: None
Living: Care Home ([facility])
Family History
Family History: Other (CVA)
Allergies / Home Medications
Allergy/AdvReac Type Severity Reaction Status Date / Time
lisinopril Allergy Severe angioedema Verified 07/12/24 09:32
�Medication �Instructions �Recorded �Confirmed �Type
levothyroxine 50 mcg tablet 50 mcg PO DAILY 11/06/15 12/16/24 History
verapamil 120 mg tablet,extended 180 mg PO DAILY 11/06/15 12/16/24 History
release
acetaminophen 325 mg tablet 650 mg PO Q4HPRN PRN pain 07/12/24 12/16/24 History
apixaban 2.5 mg tablet (Eliquis) 2.5 mg PO BID 07/12/24 12/16/24 History
ascorbic acid (vitamin C) 500 mg 500 mg PO BID 07/12/24 12/16/24 History
tablet
famotidine 20 mg tablet 20 mg PO HS 07/12/24 12/16/24 History
fentanyl 12 mcg/hr transdermal 1 patch transdermal Q72H 07/12/24 12/16/24 History
patch
ferrous sulfate 325 mg (65 mg 325 mg PO DAILY 07/12/24 12/16/24 History
iron) tablet
mirabegron 50 mg tablet,extended 50 mg PO DAILY 07/12/24 12/16/24 History
release 24 hr (Myrbetriq)
bisacodyl 10 mg rectal suppository 10 mg LA [id number] PRN if no bm aftr 12/16/24 12/16/24 History
(Dulcolax (bisacodyl)) mom
docusate sodium 100 mg capsule 100 mg PO DAILYPRN PRN constipation 12/16/24 12/16/24 History
gabapentin 100 mg capsule 100 mg PO TID 12/16/24 12/16/24 History
gabapentin 400 mg tablet 400 mg PO TID 12/16/24 12/16/24 History
lidocaine 5 % topical patch 2 patch topical DAILY lower back 12/16/24 12/16/24 History
magnesium hydroxide 400 mg/5 mL 2,400 mg PO HSPRN PRN constipation 12/16/24 12/16/24 History
oral suspension (Milk of Magnesia)
phenylephrine 0.25 %-pramoxine 1 1 applic LA BIDPRN PRN hemmorriods 12/16/24 12/16/24 History
%-glycerin-wh.petrolatum rectal
cream (Preparation H Maximum
Strength)
Review of Systems
-
History Source: Patient
All other systems: Negative unless noted
Physical Exam
Vital Signs
Temp Pulse Resp BP Pulse Ox
99.7 F 62 26 138/56 95
12/16/24 13:16 12/16/24 14:20 12/16/24 14:20 12/16/24 14:20 12/16/24 14:00
Lab Results
12/16/24 10:39
12/16/24 10:39
Troponin I 1.290 ng/ml H* D 12/16/24 13:57
Impression / Plan
-
PCP: Dr. Bari Lipscomb
Cardiology: Dr. Chaudhary
EP: Dr. Umanzor
Impression:
Admitted with fever and chest pain 12/16/24
Mild right hydronephrosis due to calculus at right ureteropelvic junction by CT 12/16/24
Sepsis
Chest pain
Elevated Troponin
Medtronic DC PPM, placed in 2012, generator change 07/12/24
PPM dependent
Permanent A-fib/typical flutter
Chronic Eliquis OAC
h/o orthostatic hypotension
HTN
Hyperlipidemia
Hypothyroidism
History of CVA
Remote history of EtOH use disorder
Echo 11/06/2015: 8 EF 55%, no significant valve disease
Plan:
-Patient came to ER today from [facility] with complaints of fever and CP and cardiology is consulted for elevated troponin. Patient is a long-term resident at [facility]. Patient has a Medtronic DC PPM that was placed in 2012 and it was found to be at
[facility] via telephone transmissions resulting in cardiology office visit on 05/07/2024 and at that time patient was recommended for generator change as she appeared to be pacemaker dependent and it also appeared that she was in permanent A-fib/flutter at
that time. Patient then had successful Medtronic DC PPM generator change 07/12/2024 and was transferred back to her long-term. Patient does not come to the office for cardiology visits and we rely solely on pacemaker transmissions from the
long-term. Patient previously written as DNR and do not hospitalize, but was sent to ER today with fever and CP. Initial troponin 0.755 and then 1.29. ECG is paced. Patient is a poor historian. In the meantime the patient was found to
have a calculus in the right ureteropelvic junction and is being recommended urology evaluation for possible ureteral stenting or stone extraction.
-ECG x 2 reviewed by me is paced rhythm with underlying atrial flutter
-Initial troponin 0.755 and then up to 1.29. Will trend troponin. This could be a nonischemic myocardial injury troponin elevation due to infection
-Check echo in AM, ordered by me.
-Patient is not a candidate for Heparin gtt at this time due to gross hematuria and chronic Eliquis 2.5 mg BID OAC.
-Check CVE in AM, ordered by me
-Await further input from Hospitalist and possibly urology regarding need to surgical intervention. Patient was previously a DNR and DNH (do not hospitalize) but most recently this was reversed.
-Will arrange for PPM check by rep in AM
--- NOTE | 2024-12-16 16:42 | W.PN.UPDATE ---
Update Note
Progress Note Update
Sepsis secondary to obstructing calculus right ureteropelvic junction
-Informed by urology will attempt to take to the OR today he is attempting to get a hold of family but unable
-Surgeon Dr. Barrera given name of facility to contact
-Patient did take Eliquis 2.5 mg this a.m. at nursing facility 12/16/2024
-Consider resuming Eliquis postop per Urology recommendations
CT chest abdomen noncontrast:
1. Mild RIGHT hydronephrosis secondary to a 10 x 10 x 17 mm calculus at the ureteropelvic junction.
2. Patchy consolidative changes within both posterior lower lobes, likely atelectasis with pneumonia not excluded. No pleural effusions.
3. Couple of rounded low-attenuation lesions within the pelvis, presumably representing ovarian cysts versus less likely fibroids. The larger lesion within the right pelvis measures 4.6 cm. The left pelvic lesion measures 3.2 cm.
4. Extensive aortoiliac atherosclerotic disease with bulky plaque at the origin of the SMA likely occlusive or flow-limiting.
5. Age-indeterminate compression deformities within the thoracic spine at T9, T10, and T11.
[2024-12-16] MEDS: VANCOCIN 530 MG IV (16:56)
[2024-12-16 16:59] LABS: Lactic Acid 1.8 mmol/L (0.7-2.0)
[2024-12-16] MEDS: NSS 1000 IV (17:00)
--- NOTE | 2024-12-16 17:53 | CONS.URO ---
Consultation
-
Performing Provider: Peffer
Reason for Consultation: Sepsis, hematuria, stone
Medical History
History of Present Illness
84F with dementia, unable to give any history
Unknown prior urologic hx
Admitted for sepsis and and gross hematuria, pneumonia, presumed UTI and hemorrhagic cystitis
Started on broad spectrum antibiotics
Urology was consulted for hematuria and I asked for a CT to evaluate for stones
CT showed obstructing R prox ureteral stone
Past Medical History
Past Medical History: Other (see H&P)
Social History
Tobacco: Non-smoker
Alcohol: None
Drug: None
Living: [facility]
Family History
Family History: Reviewed & Not Pertinent
Allergies/Home Medications
Allergies
Allergy/AdvReac Type Severity Reaction Status Date / Time
lisinopril Allergy Severe angioedema Verified 07/12/24 09:32
Home Medications
�Medication �Instructions �Recorded �Confirmed �Type
levothyroxine 50 mcg tablet 50 mcg PO DAILY 11/06/15 12/16/24 History
verapamil 120 mg tablet,extended 180 mg PO DAILY 11/06/15 12/16/24 History
release
acetaminophen 325 mg tablet 650 mg PO Q4HPRN PRN pain 07/12/24 12/16/24 History
apixaban 2.5 mg tablet (Eliquis) 2.5 mg PO BID 07/12/24 12/16/24 History
ascorbic acid (vitamin C) 500 mg 500 mg PO BID 07/12/24 12/16/24 History
tablet
famotidine 20 mg tablet 20 mg PO HS 07/12/24 12/16/24 History
fentanyl 12 mcg/hr transdermal 1 patch transdermal Q72H 07/12/24 12/16/24 History
patch
ferrous sulfate 325 mg (65 mg 325 mg PO DAILY 07/12/24 12/16/24 History
iron) tablet
mirabegron 50 mg tablet,extended 50 mg PO DAILY 07/12/24 12/16/24 History
release 24 hr (Myrbetriq)
bisacodyl 10 mg rectal suppository 10 mg WI [id number] PRN if no bm aftr 12/16/24 12/16/24 History
(Dulcolax (bisacodyl)) mom
docusate sodium 100 mg capsule 100 mg PO DAILYPRN PRN constipation 12/16/24 12/16/24 History
gabapentin 100 mg capsule 100 mg PO TID 12/16/24 12/16/24 History
gabapentin 400 mg tablet 400 mg PO TID 12/16/24 12/16/24 History
lidocaine 5 % topical patch 2 patch topical DAILY lower back 12/16/24 12/16/24 History
magnesium hydroxide 400 mg/5 mL 2,400 mg PO HSPRN PRN constipation 12/16/24 12/16/24 History
oral suspension (Milk of Magnesia)
phenylephrine 0.25 %-pramoxine 1 1 applic WI BIDPRN PRN hemmorriods 12/16/24 12/16/24 History
%-glycerin-wh.petrolatum rectal
cream (Preparation H Maximum
Strength)
Physical Exam
Vital Signs
Vital Signs
Temp Pulse Resp BP Pulse Ox
100.3 F 65 22 106/52 95
12/16/24 16:32 12/16/24 17:15 12/16/24 17:15 12/16/24 17:00 12/16/24 17:00
Lab / Testing Results
Laboratory Results
12/16/24 10:39
12/16/24 10:39
Physical Exam
General: Well Developed and Other (confused)
Respiratory: Accessory Resp Muscle Use
GI: Soft, Non Tender and Non Distended
Genito-urinary: No Costovertebral Tend
Neuro: Sedated
Psych: Confused and Apparent Dementia
Assessment / Plan
-
84F with dementia, admitted with sepsis, UTI, hematuria, pneumonia
Found to have a R prox ureteral stone with hydronephrosis
- Proceeding to OR initially delayed by consent issues - unable to reach any family members at multiple phone numbers for a few hours. [facility]. Eventually reached a manager payment who conveyed the patient was on comfort
measures only but that antibiotics were acceptable. Was going to cancel the procedure until I did reach daughter Isabella Rosa. Isabella explained she wrote the advance directive with her mother and that this referred to situations. She states that both
she and the patient would want her to be able to have relatively minor procedures for life threatening conditions as in this case.
Discussed with anesthesiologist and Isabella in detail the risks of surgery and anesthesia, and possible need for continued mechanical ventilation, worsened infection, need for additional procedures to remove stone,
- NPO
- OR for cystoscopy R ureteral stent
- Continue abx
Data Reviewed
-
CT Scan: Image personally visualized and interpreted
--- NOTE | 2024-12-16 18:32 | W.IMMPOSTOP ---
Surgical Immed Post Op Note
-
Primary Surgeon: Stephenfer
Assisting Surgeon: -
Pre-op Diagnosis: Sepsis R ureteral stone
Post-op Diagnosis: same
Procedure Performed: cystoscopy R ureteral stent
Anesthesia Type: MAC
Specimen / Cultures: none
Estimated Blood Loss: 1cc
Complications: none
Operative Findings:
Diffuse cystitis
Obstructing R prox ureter stone
Stent placed with purulent bloody urine behind the stone
Melo placed
--- NOTE | 2024-12-16 20:22 | PTCARENOTE ---
Report received from Rita, LOOM SETTER FOURDRINIER. Patient very drowsy but able to state her name and she is in the hospital. Hx- Dementia. Tele applied showing V-paced underlying Afib. Denies any pain. 6L simple face mask in place, Sp02 96%. Lungs with crackles
1/[address] with hematuria. NSS infusing at 80cc/ hr. Fentanyl patch from care home on patient; removed and discarded with ROSE Salinas. Warm blankets provided. Patient with skin breakdown on perineum, coccyx/sacrum, heels and hematoma
on left forearm. Wound consult placed. Bed alarm set. Call dao within reach.
--- NOTE | 2024-12-16 21:03 | PTCARENOTE ---
Holding new fentanyl patch d/t sedation. Discussed and confirmed with ASTON Hansen. Also discussed repeat troponin level not needed.
[2024-12-16] MEDS: NEURONTIN PO (21:18)
[2024-12-17] VITALS (14 sets, daily range): BP systolic 103–146; BP diastolic 43–75; O2SAT 98; BMI 21.4; BMI 21.6
[2024-12-17] MEDS: TYLENOL 650 MG PO (05:28)
[2024-12-17] MEDS: SYNTHROID 50 MCG PO (05:28)
[2024-12-17] MEDS: NSS 1000 IV (05:34)
--- NOTE | 2024-12-17 06:21 | PTCARENOTE ---
Febrile 101.4 this morning at 0500. Pt able to swallow Tylenol with water, no s/s of aspiration. Bean with continued hematuria. weaned to 4L NC, sp02 93-97%. foam placed to sacrum. heels floated. pressure off-loading with air cushion and pillow.
IVF continue. pt drowsy but nods head and opens eyes.
[2024-12-17 06:53] LABS: ALT (SGPT) 17 U/L (0-35); AST (SGOT) 23 U/L (14-36); Albumin 3.1 g/dl (3.5-5.0); Alkaline Phosphatase 70 U/L (38-126); Blood Urea Nitrogen 45 mg/dl (7-17); Calcium 8.2 mg/dl (8.4-10.2); Carbon Dioxide 19 mmol/L (22-30); Chloride 108 mmol/L (98-107); Estimated Creatinine Clearance 27 ml/min; Glucose 106 mg/dl (70-99); HDL Cholesterol 24 mg/dl; LDL Cholesterol, Calculated 91 mg/dl; Magnesium 1.9 mg/dl (1.6-2.3); Potassium 3.9 mmol/L (3.5-5.1); Sodium 141 mmol/L (135-145); Total Bilirubin 0.9 mg/dl (0.2-1.3); Total Cholesterol 141 mg/dl (50-199); Total Protein 5.9 g/dl (6.3-8.2); Triglyceride 133 mg/dl (10-149); Very Low Density Lipoprotein 26 mg/dl (0-30); eGFR 44.08
[2024-12-17 06:54] LABS: % Basophils 0.1 % (0-2); % Immature Granulocytes 0.6 % (0-0.5); % Lymphocytes 5.2 % (20.5-51.1); % Monocytes 10.5 % (1.7-9.3); % Neutrophils 83.6 % (42.2-75.2); Absolute Immature Granulocytes 0.1 10^3/uL (0-0.05); Absolute Lymphocytes 0.8 10^3/uL (1.2-3.4); Absolute Monocytes 1.6 10^3/uL (0.1-0.6); Absolute Neutrophils 12.9 10^3/uL (1.4-6.5); Hematocrit 28.1 % (37.0-47.0); Mean Corpuscular Hgb 29.6 pg (27.0-31.0); Mean Corpuscular Volume 92.4 fL (81.0-99.0); Nucleated Red Blood Cells % 0 %; Platelet Count 123 10^3/uL (130-400); Red Blood Cell Count 3.04 10^6/uL (4.20-5.40); Red Cell Dist. Width 14.1 % (11.5-14.5); Vancomycin Random 15.4 ug/ml; White Blood Cell Count 15.4 10^3/uL (4.8-10.8)
[2024-12-17 07:23] LABS: TSH Reflex To Free T4 0.31 uIU/ml (0.47-4.68)
[2024-12-17 07:53] LABS: Free T4 1.43 ng/dl (0.78-2.19)
--- NOTE | 2024-12-17 08:40 | PTOTSP ---
Speech Language Pathology
Pt seen for clinical bedside swallow evaluation. P.O. trials of puree, regular solids, and thin liquids provided. Prolonged mastication of regular solids noted with pt reporting it was difficult to swallow. Mild oral residue on hard palate, which
pt was able to clear with verbal cueing. Cough following regular solids. No other coughing noted. Also seen with med pass with pills 1 at a time whole with liquid x3 with RN. No overt difficulty noted.
Recommend:
(1) IDDSI Level 5 (minced/moist) solids and thin liquids
(2) Aspiration precautions: sit upright, slow rate, full assist
(3) Meds as tolerated
(4) RESIDENTIAL ENERGY AUDITOR to continue to follow
[2024-12-17] MEDS: FEOSOL 325 MG PO (08:42)
[2024-12-17] MEDS: LIDOCAINE 4% PATCH 2 PATCH TOPICAL (08:42)
[2024-12-17] MEDS: NEURONTIN 200 MG PO ×3 (08:42→22:25)
--- NOTE | 2024-12-17 10:09 | CM ---
Patient from [facility] with Hx dementia, CVA with Dx Sepsis, hematuria, R ureteral stone s/p cystoscopy R ureteral stent, possible PNA, elevated troponin, SHANDA, anemia. O2 4L. Febrile. Bean. ST- dysphagia diet. Per nurses notes;
drowsy.
Spoke with Rober, [facility];
the patient resides there in LTC on an MA bed hold.
She was Ox2, assist of 1 for ADLs and w/c bound.
The patient has disuse left leg.
The patient is blind left eye, has a pacemaker,
The patient was not receiving PT/OT and had no O2.
The ph for report [phone], fax [phone].
Plan return to [facility] when medically .
--- NOTE | 2024-12-17 11:14 | W.PN.CARDCBS ---
Today's Communication / Plan
-
Continue supportive care
Eventual restart of verapamil
Restart Eliquis when okay with urology
Impression / Plan
-
PCP: Dr. Bari Lipscomb
Cardiology: Dr. Chaudhary
EP: Dr. Umanzor
Impression:
Proteus urosepsis with bacteremia due to calculus at right ureteropelvic junction by CT 12/16/24
Chest pain
Elevated Troponin
Medtronic DC PPM, placed in 2012, generator change 07/12/24
PPM dependent
Permanent A-fib/typical flutter
Chronic Eliquis OAC
h/o orthostatic hypotension
HTN
Hyperlipidemia
Hypothyroidism
History of CVA
Remote history of EtOH use disorder
Echo 11/06/2015: 8 EF 55%, no significant valve disease
Plan:
Overall doing well from cardiac standpoint despite urosepsis/bacteremia/positive troponin
Echo is pending.
Restart Eliquis 2.5 mg twice daily when okay with urology.
Would not treat with aspirin long-term. Stop when Eliquis restarted.
Presumably elevated troponin is not an ST segment elevation CA, but rather nonischemic myocardial injury.
Given her comorbidities I would not pursue stress testing, etc.
Eventual restart of verapamil or possibly beta-lg.
Await interrogation of pacemaker.
Progress Note - English Horn Player
Subjective
Date of Service: December 17, 2024:
More oriented, knows name, offers no specific complaints, knows that she was born in [facility]
Current meds: IV vancomycin, cefepime, Pepcid, fentanyl patch, iron, Neurontin, levothyroxine, lidocaine patch, Myrbetriq. As outpatient, was on Eliquis 2.5 twice daily verapamil in addition to the above
119/59, pulse 71, respirate 18, 37.7, 97%, frail, cachectic, lungs are relatively clear, regular rate and rhythm without obvious murmurs, JVD okay, not much edema
Telemetry: No significant arrhythmia, flutter V paced
White count 15.4, hemoglobin 9, CO2 is 19, BUN and creatinine are 45 and 1.2, creatinine had been 1.6, BUN is stable, troponin peak is 1.6, free T4 is 1.43
Blood cultures are positive for Proteus
Objective
Labs:
12/17/24 05:43
12/17/24 05:43
Labs
Hgb 9.0 g/dL (12.0-16.0) L 12/17/24 05:43
Hct 28.1 % (37.0-47.0) L 12/17/24 05:43
Plt Count 123 10^3/uL (130-400) L 12/17/24 05:43
PT 24.0 Sec (11.4-14.6) H 12/16/24 11:31
INR 2.13 12/16/24 11:31
APTT 44.7 Sec (23.4-35.0) H 12/16/24 11:31
Sodium 141 mmol/L (135-145) 12/17/24 05:43
Potassium 3.9 mmol/L (3.5-5.1) 12/17/24 05:43
BUN 45 mg/dl (7-17) H 12/17/24 05:43
Creatinine 1.2 mg/dL (0.6-1.0) H 12/17/24 05:43
Glucose 106 mg/dl (70-99) H 12/17/24 05:43
Troponins
12/16/24 12/16/24 12/16/24
11:31 13:57 16:37
Troponin I 0.755 H* 1.290 H* D 1.620 H* D
Vital Signs and I&O:
Vital Signs
Temp Pulse Resp BP Pulse Ox
37.7 C 71 18 119/59 97
12/17/24 07:45 12/17/24 06:15 12/17/24 06:15 12/17/24 06:00 12/17/24 06:15
Vital Signs
Temp Pulse Resp BP Pulse Ox
37.7 C 71 18 119/59 97
12/17/24 07:45 12/17/24 06:15 12/17/24 06:15 12/17/24 06:00 12/17/24 06:15
Intake & Output
12/15/24 12/16/24 12/17/24 12/18/24
07:59 07:59 07:59 07:59
Intake Total 230 / 230
Output Total 280 / 280
Balance -50 / -50
Physical Exam
Physical Exam
See above
--- NOTE | 2024-12-17 11:36 | WOUNDNOTE ---
GEOVANNI RN NOTE: Patient admitted with Systemic inflammatory response syndrome from [facility]. Reviewed past medical history. Asked to see patient by nursing for ? DTI on Coccyx. Patient turned with minimal assist, Sacrum and coccyx non blanchable
red, stage 1 PI, sacral silicone foam in use. Turning schedule in effect, has air chair cushion. Pillows are under calves offloading heels that are boggy but blanchable pink. Foam adhesives applied to both heels and repositioned onto L semi side
lying position. Nurse Marlene aware and will sign off.
--- NOTE | 2024-12-17 12:17 | W.PN.URO.CBU ---
Today's Communication / Plan
-
Continue abx
Trend hematuria
Assessment / Plan
-
84F with dementia, admitted with sepsis, UTI, hematuria, pneumonia
Found to have a R prox ureteral stone with hydronephrosis
12/16/24 - cystoscopy, R ureteral stent placement with bloody/purulent urine above stone
- Continue abx and supportive care pending cultures
- Trend hematuria. Irrigate 20fr [address] newman PRN clots. As of this AM there is old appearing blood draining from bladder without likely active bleeding
- Outpatient follow up to arrange ureteroscopy and stone removal once infection resolved
Hold Eliquis for now until hematuria resolved
Diagnosis
-
Date of Service: December 17, 2024
-
Patient Diagnosis:
sepsis
obstructing R prox ureteral stone
Post Op Day: s/p R stent placement 12/16
Subjective
-
No pain today
fevers o/n
Objective
-
Vital Signs
Temp Pulse Resp BP Pulse Ox
100 F 71 18 119/59 97
12/17/24 07:45 12/17/24 06:15 12/17/24 06:15 12/17/24 06:00 12/17/24 06:15
Intake and Output
12/16/24 12/17/24 12/18/24
06:59 06:59 06:59
Intake Total 230 / 230
Output Total 280 / 280
Balance -50 / -50
Intake:
IV fluids (Total) 80 / 80
NSS 80 / 80
IV piggybacks 150 / 150
Output:
Urine, Newman 280 / 280
Laboratory Results
12/17/24 05:43
12/17/24 05:43
Physical Exam
-
General - well developed, well nourished, no acute distress
Chest - clear
Abdomen - soft, non-tender
- newman in place, dark urine with some old blood
Dressing - clean, dry, intact
--- NOTE | 2024-12-17 15:47 | W.PN.HOSP.TC ---
Today's Communication/Plan
-
abx
f/u cultures, repeat
switch to ceftriaxone 2gm
monitor hemturia, restart anticoag once cleared by urology
hold antihypertensives
Wean O2 as tolerated
Assessment / Plan
Assessment / Plan
Physical Exam
General: Conversant, Fever and Chills; No Pain
HEENT: NormoCephalic, Anicteric, PERRLA, [place] Conjunctivae, Oxygen (4 L nasal cannula) and Other (Chronic ptosis); No Neck Nontender
Respiratory: Clear; No Wheezes, Rales or Rhonchi
Cardiac: S1/S2 and Other; No Murmur, Rub, Gallop or Peripheral Edema
Breast: Deferred by me
GI: Soft, Non Tender, Non Distended, Normal Bowel Sounds and No Hepatosplenomegaly
Rectal: Deferred by Provider
Genito-urinary: Deferred by me
Musculoskeletal: No Clubbing, No Cyanosis and No Edema
Skin: Warm and Dry; No Rash or Jaundice
Neuro: Awake, Alert, Oriented AAO1-2; No Motor Deficits (Moves all extremities in bed), No Sensory Deficits and Other (Chronic left upper eyelid ptosis); No Slurred Speech, Facial Droop, Tremors or Sedated
Psych: Calm
# Severe sepsis
#Complicated UTI
#Bacteremia, proteus
-continue abx - Ceftriaxone 2gm - if decompensating can tx back to cefepime
-f/u cultures, repeat today
-ivf prn
#R prox ureteral stone with hydronephrosis
#Hematuria
-12/16/24 - cystoscopy, R ureteral stent placement with bloody/purulent urine above stone
-see plan above
-Outpatient follow up to arrange ureteroscopy and stone removal once infection resolved
-hold eliquis
#Hypotension
-improved
-2/2 to sepsis
-add back htn regimen as needed
#Acute hypoxic respiratory insufficiency
-more than likely 2/2 to atelectasis v less likely pneumonia
89% RA, 93% 4 L nasal cannula
-IV ceftriaxone
-Incentive spirometry
-Sputum culture
-f/u mrsa swab - negative; dc vanc
#SHANDA secondary to sepsis and possible hypovolemia
-probable septic atn
-monitor with resuscitation
-Follow BMP
#Elevated troponin
� Probable nonischemic myocardial injury secondary to severe sepsis
� Follow-up echo
� Cardiology consulted
#Chronic back pain on chronic opiates
-Continue fentanyl patch 28.8 mg due tomorrow 12/17/2024 then every 72 hours
-Continue gabapentin 500 mg 3 times daily
#Acute on chronic anemia�normocytic
Hgb 9.6, MCV 92.5Hemoglobin appears baseline
-Follow CBC
#Permanent Pacemaker-Tachybradycardia
#Paroxysmal A-fib
Hold Eliquis due to hematuria
#CVA Hx
-Continue BP control hold Eliquis due to cystitis
HLD
-No reported statins
#Hypothyroidism
-Continue levothyroxine 50 mcg p.o. daily
-Check TSH with free T4 reflex
#Chronic ptosis left eyelid
#HTn
-hold antihtn meds
#Couple of rounded low-attenuation lesions within the pelvis, presumably representing ovarian cysts versus less likely fibroids. The larger lesion within the right pelvis measures 4.6 cm. The left pelvic lesion measures 3.2 cm.
-f/u outpt
#Extensive aortoiliac atherosclerotic disease with bulky plaque at the origin of the SMA likely occlusive or flow-limiting.
-resume anticoag once cleared
f/u cards outpt
#DVT ppx
scd
Total time spent on today's encounter was 50 minutes which included time spent in counseling the patient/family regarding diagnosis and treatment plan as listed above, goals of care, and symptom management. Case was discussed with nursing staff,
specialists, and care coordinators/case management. All labs and imaging personally reviewed by me. Remainder the time spent in detailed review of previous records, lab data, imaging, and other medical provider documentation.
Anticipated Discharge: > 48 hours
Subjective/Interval History
-
Date of Service: December 17, 2024
no acute events, still with hematuria
Objective Data
-
Labs:
Laboratory Results
12/17/24
05:43
WBC 15.4 H
Hgb 9.0 L
Hct 28.1 L
Plt Count 123 L
Sodium 141
Potassium 3.9
Chloride 108 H
Carbon Dioxide 19 L
BUN 45 H
Creatinine 1.2 H
Glucose 106 H
Calcium 8.2 L
Total Bilirubin 0.9
AST 23
ALT 17
Alkaline Phosphatase 70
Vital Signs:
Vital Signs
Temp Pulse Resp BP Pulse Ox
100 F 71 18 119/59 97
12/17/24 07:45 12/17/24 06:15 12/17/24 06:15 12/17/24 06:00 12/17/24 06:15
I&O
12/16/24 12/17/24 12/18/24
06:59 06:59 06:59
Intake Total 230 / 230
Output Total 280 / 280
Balance -50 / -50
Review of Systems
-
History Source: Patient
All other systems: Not reviewed unless documented
Data Reviewed
-
CT Scan: Image personally visualized and interpreted and Report Reviewed by me
Labs: Labs Reviewed by me
[2024-12-17] MEDS: LR 1000 IV (17:34)
[2024-12-17] MEDS: STERILE WATER FOR INJECTION 20 ML IV (17:35)
[2024-12-17] MEDS: FLUSH (NSS) 2 FLUSH IV (17:35)
[2024-12-17] MEDS: ROCEPHIN 2000 MG IV (17:36)
[2024-12-17] MEDS: NSS IV (18:14)
[2024-12-17] MEDS: PEPCID 20 MG PO (22:25)
[2024-12-18] VITALS (10 sets, daily range): BP systolic 128–162; BP diastolic 58–109; BMI 21.8
[2024-12-18 06:13] LABS: % Basophils 0.1 % (0-2); % Eosinophils 0.1 % (0-6); % Immature Granulocytes 0.8 % (0-0.5); % Lymphocytes 7.7 % (20.5-51.1); % Monocytes 11.2 % (1.7-9.3); % Neutrophils 80.1 % (42.2-75.2); Absolute Immature Granulocytes 0.1 10^3/uL (0-0.05); Absolute Lymphocytes 0.7 10^3/uL (1.2-3.4); Absolute Neutrophils 6.9 10^3/uL (1.4-6.5); Hemoglobin 8.4 g/dL (12.0-16.0); Mean Corp Hgb Conc. 32.3 g/dL (33.0-37.0); Mean Corpuscular Hgb 29.4 pg (27.0-31.0); Mean Corpuscular Volume 90.9 fL (81.0-99.0); Mean Platelet Volume 10.6 fL (7.4-10.4); Nucleated Red Blood Cells % 0 %; Platelet Count 118 10^3/uL (130-400); Red Blood Cell Count 2.86 10^6/uL (4.20-5.40); Red Cell Dist. Width 13.9 % (11.5-14.5); White Blood Cell Count 8.7 10^3/uL (4.8-10.8)
[2024-12-18] MEDS: SYNTHROID 50 MCG PO (06:17)
[2024-12-18 06:35] LABS: ALT (SGPT) 15 U/L (0-35); AST (SGOT) 21 U/L (14-36); Albumin 2.6 g/dl (3.5-5.0); Alkaline Phosphatase 64 U/L (38-126); Blood Urea Nitrogen 38 mg/dl (7-17); Calcium 8.2 mg/dl (8.4-10.2); Carbon Dioxide 19 mmol/L (22-30); Chloride 115 mmol/L (98-107); Estimated Creatinine Clearance 40 ml/min; Glucose 92 mg/dl (70-99); Potassium 3.5 mmol/L (3.5-5.1); Sodium 143 mmol/L (135-145); Total Bilirubin 0.4 mg/dl (0.2-1.3); Total Protein 5.2 g/dl (6.3-8.2); eGFR > 60.00
--- NOTE | 2024-12-18 07:12 | PTCARENOTE ---
Drowsy but arousable. Hematuria continues via newman, draining w/o issues. v-paced, underlying afib. repositioned throughout the night, heels floated. On 1L NC. bed alarm set call dao within reach.
--- NOTE | 2024-12-18 07:26 | PN.CDI ---
CDI
- -
CDI:
Physician Documentation Request
Admit Date: 12/16/24 13:26
Dear Doctor Ruddy,
Please review the following and provide your response in the progress notes.
Clinical Indicators:
Pt admitted with Septic shock 2/2 Proteus UTI /Hydronephrosis with ureteral stone s/p ureteral stenting
Documented per [facility] note 12/17, ' DTI on Coccyx. Patient turned with minimal assist, Sacrum and coccyx non blanchable red, stage 1 PI, sacral silicone foam in use...'
Physician documentation of the type and location of wounds is required for compliant documentation. Based on the above clinical findings and your assessment, please provide the following in your progress note:
1. Location of the ulcer/wound, including laterality.
2. Type (etiology) of ulcer/wound:
- Pressure (decubitus) ulcer
- Non-pressure ulcer
- Other
Use of terms such as suspected, likely, concern for, or probable (associated with a specific diagnosis that is being evaluated, monitored, or treated as if it exists) are acceptable and can be coded in the inpatient setting, when documented at the
time of discharge.
Thank you,
Deya Holman RN
CDI Specialist
[place] [employer]
Please use your independent medical judgment in providing your response.
*Source: National Pressure Ulcer Advisory Panel (NPUAP)
--- NOTE | 2024-12-18 07:33 | PN.CDI ---
CDI
- -
CDI:
Physician Documentation Request
Admit Date: 12/16/24 13:26
Dear Doctor Laina,
Please review the following and provide your response in the progress notes.
Clinical Indicators:
Pt admitted with Septic shock 2/ Proteus UTI /Hydronephrosis with ureteral stone s/p ureteral stenting
There is potentially conflicting documentation in the record regarding the type of atrial fibrillation.
Documented per H&P and progress note 12/17, 'Paroxysmal A-fib Hold Eliquis due to hematuria...'
Cardiology consult and note 12/17, ' Permanent A-fib/typical flutter Chronic Eliquis OAC...'
Due to conflicting documentation please provide further specificity regarding atrial fibrillation :
Permanent atrial fibrillation - when a decision has been made to accept the presence of AF and there is no further attempt to restore or maintain sinus rhythm
Paroxysmal atrial fibrillation - terminates spontaneously or with intervention within 7 days of onset
Other - please specify
Use of terms such as suspected, likely, concern for, or probable (associated with a specific diagnosis that is being evaluated, monitored, or treated as if it exists) are acceptable and can be coded in the inpatient setting, when documented at the
time of discharge.
Thank you,
Deya Holman RN
CDI Specialist
[place] [employer]
Please use your independent medical judgment in providing your response.
[2024-12-18] MEDS: LR 1000 IV (08:18)
[2024-12-18] MEDS: FEOSOL 325 MG PO (08:19)
[2024-12-18] MEDS: ROCEPHIN 2000 MG IV (08:19)
[2024-12-18] MEDS: MYRBETRIQ EXTENDED RELEASE 50 MG PO (08:19)
[2024-12-18] MEDS: NEURONTIN 200 MG PO ×3 (08:19→21:00)
[2024-12-18] MEDS: STERILE WATER FOR INJECTION 20 ML IV (08:20)
[2024-12-18] MEDS: LIDOCAINE 4% PATCH 2 PATCH TOPICAL (08:20)
[2024-12-18] MEDS: DURAGESIC 12 MCG/HR PATCH 1 PATCH TRANSDERM (08:21)
[2024-12-18] MEDS: FLUSH (NSS) 1 FLUSH IV ×2 (08:28)
--- NOTE | 2024-12-18 08:43 | W.PN.URO.CBU ---
Today's Communication / Plan
-
Continue antibiotic
Maintain newman today
Hold Eliquis
Assessment / Plan
-
84F with dementia, admitted with sepsis, UTI, hematuria, pneumonia
Found to have a R prox ureteral stone with hydronephrosis
Proteus bacteremia
12/16/24 - cystoscopy, R ureteral stent placement with bloody/purulent urine above stone
- Continue abx and supportive care pending cultures - proteus in urine and blood
- Trend hematuria - near resolved this AM. Bladder flushed with no clots and light pink urine
- Hold Eliquis for now until hematuria resolved
- Plan for newman removal tomorrow if hematuria remains cleared or minimal
- Outpatient follow up to arrange ureteroscopy and stone removal once infection resolved
Diagnosis
-
Date of Service: December 18, 2024
-
Patient Diagnosis:
sepsis
obstructing R prox ureteral stone
Post Op Day: s/p R stent placement 12/16
Subjective
-
UTO
Objective
-
Vital Signs
Temp Pulse Resp BP Pulse Ox
98.5 F 64 18 153/81 97
12/18/24 03:57 12/18/24 06:45 12/18/24 06:45 12/18/24 06:34 12/18/24 06:45
Intake and Output
12/17/24 12/18/24 12/19/24
06:59 06:59 06:59
Intake Total 230 / 230 1742 / 1742
Output Total 280 / 280 950 / 950
Balance -50 / -50 792 / 792
Intake:
Oral fluids 120 / 120
IV fluids (Total) 80 / 80 1622 / 1622
NSS 80 / 80
IV piggybacks 150 / 150
Output:
Urine, Newman 280 / 280 950 / 950
Laboratory Results
12/18/24 05:54
12/18/24 05:54
Physical Exam
-
General - well developed, well nourished, no acute distress
Chest - clear
Abdomen - soft, non-tender
- newman in place, red urine in tube but draining light pink
--- NOTE | 2024-12-18 09:15 | W.PN.UPDATE ---
Update Note
Progress Note Update
From a cardiac standpoint patient had peak Troponin 1.29 and this was managed as a nonischemic myocardial injury Troponin elevation due to sepsis. Aspirin started this admission while Eliquis was on hold and would stop aspirin when Eliquis is
restarted for h/o permanent Afib/flutter. EF 50 to 55% without any WMA on echo 12/17/2024. No plans for ischemic evaluation given age and comorbidities. Patient has not been seen in cardiology office for years, she refuses to leave [facility] for
appointments, but we continue to monitor her PPM remotely and performed an appropriately timed generator change 07/12/24. Patient is already scheduled for upcoming remote device checks. Cardiology will sign off and please recall if needed.
--- NOTE | 2024-12-18 14:36 | W.PN.HOSP.TC ---
Today's Communication/Plan
-
hopeful for newman removal tomorrow
abx
ID consulted
Assessment / Plan
Assessment / Plan
Physical Exam
General: Conversant, Fever and Chills; No Pain
HEENT: NormoCephalic, Anicteric, PERRLA, [place] Conjunctivae, Oxygen (4 L nasal cannula) and Other (Chronic ptosis); No Neck Nontender
Respiratory: Clear; No Wheezes, Rales or Rhonchi
Cardiac: S1/S2 and Other; No Murmur, Rub, Gallop or Peripheral Edema
Breast: Deferred by me
GI: Soft, Non Tender, Non Distended, Normal Bowel Sounds and No Hepatosplenomegaly
Rectal: Deferred by Provider
Genito-urinary: Deferred by me
Musculoskeletal: No Clubbing, No Cyanosis and No Edema
Skin: Warm and Dry; No Rash or Jaundice
Neuro: Awake, Alert, Oriented AAO1-2; No Motor Deficits (Moves all extremities in bed), No Sensory Deficits and Other (Chronic left upper eyelid ptosis); No Slurred Speech, Facial Droop, Tremors or Sedated
Psych: Calm
# Severe sepsis
#Complicated UTI
#Bacteremia, proteus
-continue abx - Ceftriaxone 2gm - if decompensating can tx back to cefepime
-f/u cultures, repeat today
-ivf PRN
-ID consulted
#R prox ureteral stone with hydronephrosis
#Hematuria
-12/16/24 - cystoscopy, R ureteral stent placement with bloody/purulent urine above stone
-see plan above
-Outpatient follow up to arrange ureteroscopy and stone removal once infection resolved
-hold eliquis
-plan newman removal tomorrow if hematuria improves
#Hypotension
-improved
-2/2 to sepsis
-add back htn regimen as needed
#Acute hypoxic respiratory insufficiency
-more than likely 2/2 to atelectasis v less likely pneumonia
89% RA, 93% 4 L nasal cannula
-IV ceftriaxone
-Incentive spirometry
-Sputum culture
-f/u mrsa swab - negative; dc vanc
�Wean O2 as tolerated
� Wean as tolerated
#SHANDA secondary to sepsis and possible hypovolemia
-probable septic atn
-monitor with resuscitation
-Follow BMP
#Elevated troponin
� Probable nonischemic myocardial injury secondary to severe sepsis
� Follow-up echo - no WMA; EF 55%; Stage III diastolic dysfunction suggestive of restrictive filling pattern and increased filling pressures.
� Cardiology consulted
-f/u cards outpt
#Chronic back pain on chronic opiates
-Continue fentanyl patch 28.8 mg due tomorrow 12/17/2024 then every 72 hours
-Continue gabapentin 500 mg 3 times daily
#Acute on chronic anemia�normocytic
Hgb 9.6, MCV 92.5Hemoglobin appears baseline
-Follow CBC
#Permanent Pacemaker-Tachybradycardia
-cards monitors remotely
#Paroxysmal A-fib
Hold Eliquis due to hematuria
#CVA Hx
-Continue BP control hold Eliquis due to cystitis
HLD
-No reported statins
#Hypothyroidism
-Continue levothyroxine 50 mcg p.o. daily
-Check TSH with free T4 reflex
#Chronic ptosis left eyelid
#HTn
-hold anti htn meds
#Couple of rounded low-attenuation lesions within the pelvis, presumably representing ovarian cysts versus less likely fibroids. The larger lesion within the right pelvis measures 4.6 cm. The left pelvic lesion measures 3.2 cm.
-f/u outpt
#Extensive aortoiliac atherosclerotic disease with bulky plaque at the origin of the SMA likely occlusive or flow-limiting.
-resume anticoag once cleared
f/u cards outpt
#DVT ppx
scd
Total time spent on today's encounter was 51 minutes which included time spent in counseling the patient/family regarding diagnosis and treatment plan as listed above, goals of care, and symptom management. Case was discussed with nursing staff,
specialists, and care coordinators/case management. All labs and imaging personally reviewed by me. Remainder the time spent in detailed review of previous records, lab data, imaging, and other medical provider documentation.
Anticipated Discharge: 24 - 48 hours
Subjective/Interval History
-
Date of Service: December 18, 2024
No acute events overnight
Objective Data
-
Labs:
Laboratory Results
12/18/24
05:54
WBC 8.7
Hgb 8.4 L
Hct 26.0 L
Plt Count 118 L
Sodium 143
Potassium 3.5
Chloride 115 H
Carbon Dioxide 19 L
BUN 38 H
Creatinine 0.8
Glucose 92
Calcium 8.2 L
Total Bilirubin 0.4
AST 21
ALT 15
Alkaline Phosphatase 64
Vital Signs:
Vital Signs
Temp Pulse Resp BP Pulse Ox
98.1 F 71 19 153/84 90
12/18/24 11:45 12/18/24 12:30 12/18/24 12:30 12/18/24 10:00 12/18/24 11:30
I&O
12/17/24 12/18/24 12/19/24
06:59 06:59 06:59
Intake Total 230 / 230 1742 / 1742
Output Total 280 / 280 950 / 950
Balance -50 / -50 792 / 792
Review of Systems
-
History Source: Patient
All other systems: Not reviewed unless documented
Data Reviewed
-
CT Scan: Image personally visualized and interpreted and Report Reviewed by me
Labs: Labs Reviewed by me
--- NOTE | 2024-12-18 15:35 | CON.ID ---
Consultation
-
Date/Time Consultation Requested: 12/18/24 14:44
Date/Time Consultation Performed: 12/18/24 15:35
Requesting Provider: Dr Fox
Performing Provider: Dr Perkins
Reason for Consultation: bacteremia
Chief Complaint / Past History
Chief Complaint
Chest pain, fever, lethargy, malaise, hypotension
History of Present Illness
Ms norton is an 84 year old female with history of dementia, pacemaker placement for tachy-anand syndrome who presented here 12/16 for chest pain, fever, lethargy, malaise, hypotension. History is limited due to the condition of the patient.
Since arrival here tmax 101.4 now afebrile, bp initially hypotensive now stable, wbc initially 18 now 8.7 hgb 8.4, plt 118, na 136, cr initially 1.6 now 0.8, lactic acid initially 3.3 now 1.8, lfts wnl, mild troponinemia noted, UA on arrival 4+
blood and >100 wbcs found to have obstructing right ureteral stone, taken to the OR and a stent was placed, blood cultures came back with Protues, urine culture also with proteus - currently on ceftriaxone, ID is consulted for assistance with
management.
Past History
Additional Past Medical History:
Dementia
hypertension
overactive bladder
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
chronic normocytic anemia
chronic back pain on chronic opiates
Paroxysmal A-fib on Eliquis
CVA
HLD
chronic ambulatory dysfunction uses Pavel wheelchair
chronic ptosis left eyelid
Dysphagia on Mechanical soft diet
Additional Past Surgical History:
Hysterectomy
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
Right cataract extraction 2014
Allergy History:
lisinopril Allergy (Severe, Verified 07/12/24 09:32)
angioedema
Medications Reviewed: Yes
Social History
Tobacco: Non-Smoker
Alcohol: None
Living: Halfway
Family History
Family History: Not Pertinent
Review of Systems
Review of Systems
General: Fever
All systems: All other systems were reviewed and were negative
Vital Signs
Temp Pulse Resp BP Pulse Ox
98.1 F 71 19 153/84 90
12/18/24 11:45 12/18/24 12:30 12/18/24 12:30 12/18/24 10:00 12/18/24 11:30
Physical Exam
Physical Exam
Constitutional: No Acute Distress
Cardiovascular: Regular Rate and S1/S2; Negative Murmur or Rub
Pulmonary: Clear and Symmetric; Negative Wheezes, Rales or Rhonchi
Gastrointestinal: Soft, Non Tender, Non Distended and Normal Bowel Sounds
Genito-Urinary: Negative Suprapubic Tenderness or CVA Tenderness
Skin: Warm and Dry; Negative Rash or Jaundice
Lab / Diagnostic Study Results
12/18/24 05:54
12/18/24 05:54
Abs Immat Gran (auto) 0.1 10^3/uL (0-0.05) H 12/18/24 05:54
Absolute Neuts (auto) 6.9 10^3/uL (1.4-6.5) H 12/18/24 05:54
Absolute Lymphs (auto) 0.7 10^3/uL (1.2-3.4) L 12/18/24 05:54
Absolute Monos (auto) 1.0 10^3/uL (0.1-0.6) H 12/18/24 05:54
Absolute Basos (auto) 0.0 10^3/uL (0-0.2) 12/18/24 05:54
Immature Gran % 0.8 % (0-0.5) H 12/18/24 05:54
Neutrophils % 80.1 % (42.2-75.2) H 12/18/24 05:54
Lymphocytes % 7.7 % (20.5-51.1) L 12/18/24 05:54
Monocytes % 11.2 % (1.7-9.3) H 12/18/24 05:54
Eosinophils % 0.1 % (0-6) 12/18/24 05:54
Basophils % 0.1 % (0-2) 12/18/24 05:54
PT 24.0 Sec (11.4-14.6) H 12/16/24 11:31
INR 2.13 12/16/24 11:31
Lactic Acid 1.8 mmol/L (0.7-2.0) 12/16/24 16:37
Ur Squamous Epith Cells 0-2 /LPF (Few) 12/16/24 11:10
Microbiology Results
Micro:
12/17/24 14:54 Blood Culture - Preliminary
Blood/Venous No Growth in 24 hours- Final report to follow
12/18/24 06:28 Respiratory Culture - Pending
Sputum Gram Stain - Preliminary
12/16/24 11:29 Blood Culture - Preliminary
Blood/Venous Proteus species
Gram Stain - Preliminary
12/16/24 11:29 Blood Culture - Preliminary
Blood/Venous Proteus species
Gram Stain - Final
12/16/24 11:10 Urine Culture - Final
Urine Proteus mirabilis
12/17/24 05:43 MRSA Screen - Final
Nose No Methicillin Resistant Staphylococcus aureus isolated.
12/16/24 13:57 Nasal Screen MRSA (PCR) - Final
Nose MRSA not detected - performed by PCR methodology.
12/16/24 10:39 Influenza Types A & B (BERNICE) - Final
Nasal Swab Negative for Influenza A & B, NAAT
Negative results must be combined with clinical observations
and patient history.
Nucleic Acid Amplification test (NAAT)performed on the
[employer] platform.
Urine Culture Final 12/18/24-08
CC: Greater than 100,000 CFU/ML Proteus mirabilis
Organism 1 Proteus mirabilis
1. Proteus mirabilis
M.I.C. RX
--------- ---
Amoxicillin/Potas. Clavulanate <=8/4 S
Ampicillin <=8 S
Ampicillin/Sulbactam <=4/2 S
Aztreonam <=4 S
Cefazolin 4 I
Cefazolin interpretations for E. coli, K. pneumo and
P. mirabilis for uncomplicated uti are as follows:
<=16 Susceptible
> 16 Resistant
Cefepime <=2 S
Ceftazidime <=1 S
Ceftriaxone <=1 S
Ertapenem <=0.5 S
Ciprofloxacin 1 R
Gentamicin <=2 S
Meropenem <=1 S
Nitrofurantoin-Urine Only >64 R
Piperacillin/Tazobactam <=8 S
Tetracycline >8 R
Tobramycin <=2 S
Trimethoprim/Sulfamethoxazole <=2/38 S
Assessment / Plan
Complicated UTI due to Proteus
Proteus bacteremia 2/2 to UTI
S/p stenting for obstructing renal stone
Resolved Shock
SHANDA - resolved
- no need for repeat blood cultures for gram negatives with known source from ID perspective
- doubt pneumonia - suspect sputum culture may show usual resp nemesio
- newman management per urology
- can transition to cefdnir 12/16-12/22 starting tomorrow
- follow up with urology - eventual intervention on stone
[2024-12-19] VITALS (15 sets, daily range): BP systolic 121–176; BP diastolic 61–104; BMI 22.4
--- NOTE | 2024-12-19 00:45 | PTCARENOTE ---
Rec'd pt at change of shift. Pt confused, with hx dementia, arousable to voice. Pt sometimes calls out, but unable to specify what she needs. Maintained on RA at this time. Bean intact draining red bloody urine. Pt repositioned often to prevent
further skin breakdown. Pt with very poor appetite, educated on importance of protein intake. Pt unable to learn d/t baseline dementia. Call dao within reach. Bed alarm in place for pt safety. Care ongoing.
[2024-12-19 04:58] LABS: ALT (SGPT) 26 U/L (0-35); AST (SGOT) 32 U/L (14-36); Albumin 2.8 g/dl (3.5-5.0); Alkaline Phosphatase 78 U/L (38-126); Blood Urea Nitrogen 34 mg/dl (7-17); Calcium 8.5 mg/dl (8.4-10.2); Carbon Dioxide 19 mmol/L (22-30); Chloride 115 mmol/L (98-107); Estimated Creatinine Clearance 46 ml/min; Glucose 115 mg/dl (70-99); Potassium 3.2 mmol/L (3.5-5.1); Sodium 143 mmol/L (135-145); Total Bilirubin 0.5 mg/dl (0.2-1.3); Total Protein 5.5 g/dl (6.3-8.2); eGFR > 60.00
[2024-12-19] MEDS: OMNICEF 300 MG PO ×2 (05:00→20:09)
[2024-12-19] MEDS: SYNTHROID 50 MCG PO (05:00)
[2024-12-19 05:30] LABS: % Basophils 0.2 % (0-2); % Eosinophils 0.2 % (0-6); % Immature Granulocytes 0.8 % (0-0.5); % Lymphocytes 11.5 % (20.5-51.1); % Monocytes 10.6 % (1.7-9.3); % Neutrophils 76.7 % (42.2-75.2); Absolute Immature Granulocytes 0.1 10^3/uL (0-0.05); Absolute Monocytes 0.9 10^3/uL (0.1-0.6); Absolute Neutrophils 6.8 10^3/uL (1.4-6.5); Hematocrit 26.3 % (37.0-47.0); Hemoglobin 8.9 g/dL (12.0-16.0); Mean Corp Hgb Conc. 33.8 g/dL (33.0-37.0); Mean Corpuscular Volume 88.6 fL (81.0-99.0); Nucleated Red Blood Cells % 0 %; Red Blood Cell Count 2.97 10^6/uL (4.20-5.40); White Blood Cell Count 8.8 10^3/uL (4.8-10.8)
--- NOTE | 2024-12-19 06:21 | PTCARENOTE ---
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 No new orders at this time.
[2024-12-19 06:58] LABS: Mean Platelet Volume 11.4 fL (7.4-10.4); Platelet Count 137 10^3/uL (130-400)
--- NOTE | 2024-12-19 09:10 | W.PN.ID1 ---
Date of Service
Date of Service: December 19, 2024
Today's Communication
- transition to cefdinir 12/16-12/22
- follow up with urology - eventual intervention on stone
Assessment / Plan
Complicated UTI due to Proteus
Proteus bacteremia / to UTI
S/p stenting for obstructing renal stone
Resolved Shock
SHANDA - resolved
- no need for repeat blood cultures for gram negatives with known, controlled source from ID perspective
- sputum culture shows usual resp nemesio - pneumonia ruled out
- newman management per urology
- transition to cefdinir 12/16-12/22
- follow up with urology - eventual intervention on stone
Chief Complaint
-: UTI and Bacteremia
Subjective / Review of Systems
afebrile
bp stable
RNs noting confusion overnight
Vital Signs / Physical Exam
Vital Signs
Vital Signs
Temp Pulse Resp BP Pulse Ox
97.8 F 77 18 156/77 93
12/19/24 08:43 12/19/24 08:00 12/19/24 08:00 12/19/24 08:00 12/19/24 08:43
Physical Exam
Constitutional: No Acute Distress and Chronically Ill
Cardiovascular: Regular Rate and S1/S2; Negative Murmur or Rub
Pulmonary: Clear and Symmetric; Negative Wheezes or Rales
Gastrointestinal: Soft, Non Tender, Non Distended and Normal Bowel Sounds
Skin: Warm and Dry; Negative Rash or Jaundice
Objective Data
Lab Data
Lab Results
12/19/24 04:28
12/19/24 04:28
PT 24.0 Sec (11.4-14.6) H 12/16/24 11:31
INR 2.13 12/16/24 11:31
APTT 44.7 Sec (23.4-35.0) H 12/16/24 11:31
Estimated Creat Clear 46 ml/min 12/19/24 04:28
Lactic Acid 1.8 mmol/L (0.7-2.0) 12/16/24 16:37
Total Bilirubin 0.5 mg/dl (0.2-1.3) 12/19/24 04:28
AST 32 U/L (14-36) 12/19/24 04:28
ALT 26 U/L (0-35) 12/19/24 04:28
Alkaline Phosphatase 78 U/L (38-126) 12/19/24 04:28
Most recent labs reviewed.
Micro Results:
12/16/24 11:29 Blood Culture - Preliminary
Blood/Venous Proteus mirabilis
Gram Stain - Preliminary
12/16/24 11:29 Blood Culture - Final
Blood/Venous Proteus mirabilis
Gram Stain - Final
12/17/24 14:54 Blood Culture - Preliminary
Blood/Venous No Growth in 24 hours- Final report to follow
12/18/24 06:28 Respiratory Culture - Pending
Sputum Gram Stain - Preliminary
12/16/24 11:10 Urine Culture - Final
Urine Proteus mirabilis
12/17/24 05:43 MRSA Screen - Final
Nose No Methicillin Resistant Staphylococcus aureus isolated.
12/16/24 13:57 Nasal Screen MRSA (PCR) - Final
Nose MRSA not detected - performed by PCR methodology.
12/16/24 10:39 Influenza Types A & B (BERNICE) - Final
Nasal Swab Negative for Influenza A & B, NAAT
Negative results must be combined with clinical observations
and patient history.
Nucleic Acid Amplification test (NAAT)performed on the
[employer] platform.
[2024-12-19] MEDS: MYRBETRIQ EXTENDED RELEASE 50 MG PO (10:26)
[2024-12-19] MEDS: LIDOCAINE 4% PATCH 2 PATCH TOPICAL (10:26)
[2024-12-19] MEDS: NEURONTIN 200 MG PO ×3 (10:27→20:09)
[2024-12-19] MEDS: FLUSH (NSS) 1 FLUSH IV (10:27)
[2024-12-19] MEDS: FEOSOL 325 MG PO (10:27)
[2024-12-19] MEDS: FLUSH (NSS) IV ×2 (10:28)
--- NOTE | 2024-12-19 15:21 | W.PN.HOSP.TC ---
Today's Communication/Plan
-
Restart verapamil
Transition to oral antibiotics
Follow-up urology recommendations for hematuria
Assessment / Plan
Assessment / Plan
Physical Exam
General: Conversant, Fever and Chills; No Pain
HEENT: NormoCephalic, Anicteric, PERRLA, [place] Conjunctivae, Oxygen (4 L nasal cannula) and Other (Chronic ptosis); No Neck Nontender
Respiratory: Clear; No Wheezes, Rales or Rhonchi
Cardiac: S1/S2 and Other; No Murmur, Rub, Gallop or Peripheral Edema
Breast: Deferred by me
GI: Soft, Non Tender, Non Distended, Normal Bowel Sounds and No Hepatosplenomegaly
Rectal: Deferred by Provider
Genito-urinary: Deferred by me
Musculoskeletal: No Clubbing, No Cyanosis and No Edema
Skin: Warm and Dry; No Rash or Jaundice
Neuro: Awake, Alert, Oriented AAO1-2; No Motor Deficits (Moves all extremities in bed), No Sensory Deficits and Other (Chronic left upper eyelid ptosis); No Slurred Speech, Facial Droop, Tremors or Sedated
Psych: Calm
# Severe sepsis
#Complicated UTI
#Bacteremia, proteus
-continue abx - Ceftriaxone 2gm -switch to cefdinir 12/16 - 12/22
-f/u cultures, repeat today
-ivf PRN
-ID consulted
#R prox ureteral stone with hydronephrosis
#Hematuria
-12/16/24 - cystoscopy, R ureteral stent placement with bloody/purulent urine above stone
-see plan above
-Outpatient follow up to arrange ureteroscopy and stone removal once infection resolved
-hold eliquis
-plan newman removal tomorrow if hematuria improves
#Hypotension
-improved
-11/24 to sepsis
-add back htn regimen as needed
Hypokalemia
� Monitor and replace
#Acute hypoxic respiratory insufficiency, resolved
-more than likely 2/2 to atelectasis v less likely pneumonia
89% RA, 93% 4 L nasal cannula
#SHANDA secondary to sepsis and possible hypovolemia
-probable septic atn
-monitor with resuscitation
-Follow BMP
#Elevated troponin
� Probable nonischemic myocardial injury secondary to severe sepsis
� Follow-up echo - no WMA; EF 55%; Stage III diastolic dysfunction suggestive of restrictive filling pattern and increased filling pressures.
� Cardiology consulted
-f/u cards outpt
#Chronic back pain on chronic opiates
-Continue fentanyl patch 28.8 mg due tomorrow 12/17/2024 then every 72 hours
-Continue gabapentin 500 mg 3 times daily
#Acute on chronic anemia�normocytic
Hgb 9.6, MCV 92.5Hemoglobin appears baseline
-Follow CBC
#Permanent Pacemaker-Tachybradycardia
-cards monitors remotely
#Paroxysmal A-fib
Hold Eliquis due to hematuria
#CVA Hx
-Continue BP control hold Eliquis due to cystitis
HLD
-No reported statins
#Hypothyroidism
-Continue levothyroxine 50 mcg p.o. daily
-Check TSH with free T4 reflex
#Chronic ptosis left eyelid
#HTn
Restart verapamil
#Couple of rounded low-attenuation lesions within the pelvis, presumably representing ovarian cysts versus less likely fibroids. The larger lesion within the right pelvis measures 4.6 cm. The left pelvic lesion measures 3.2 cm.
-f/u outpt
#Extensive aortoiliac atherosclerotic disease with bulky plaque at the origin of the SMA likely occlusive or flow-limiting.
-resume anticoag once cleared
f/u cards outpt
#DVT ppx
scd
Anticipated Discharge: 24 - 48 hours
Subjective/Interval History
-
Date of Service: December 19, 2024
Still with hematuria
Objective Data
-
Labs:
Laboratory Results
12/19/24
04:28
WBC 8.8
Hgb 8.9 L
Hct 26.3 L
Plt Count 137
Sodium 143
Potassium 3.2 L
Chloride 115 H
Carbon Dioxide 19 L
BUN 34 H
Creatinine 0.7
Glucose 115 H
Calcium 8.5
Total Bilirubin 0.5
AST 32
ALT 26
Alkaline Phosphatase 78
Vital Signs:
Vital Signs
Temp Pulse Resp BP Pulse Ox
98.1 F 74 20 155/90 95
12/19/24 11:05 12/19/24 14:31 12/19/24 14:31 12/19/24 12:15 12/19/24 14:26
I&O
12/18/24 12/19/24 12/20/24
06:59 06:59 06:59
Intake Total 1742 / 1742 450 / 450
Output Total 950 / 950 350 / 350
Balance 792 / 792 -350 / -350 450 / 450
Review of Systems
-
History Source: Patient
All other systems: Not reviewed unless documented
Data Reviewed
-
CT Scan: Image personally visualized and interpreted and Report Reviewed by me
Labs: Labs Reviewed by me
[2024-12-19] MEDS: KCL ELIXIR 40 MEQ PO (16:51)
[2024-12-19] MEDS: CALAN EXTENDED RELEASE 180 MG PO (16:52)
[2024-12-19] MEDS: TYLENOL 650 MG PO ×2 (17:03→21:12)
--- NOTE | 2024-12-19 17:20 | PTCARENOTE ---
Patient complaining of mid and lower back pain. Lidoderm patches applied as ordered. Medicated patient with tylenol. Repositioning patient Q2HR and as needed for comfort. BP's elevated today. Patient restarted on verapamil. Bean catheter
draining bloody urine. Placed for urology determination. Will monitor.
--- NOTE | 2024-12-19 18:00 | W.PN.URO.CBU ---
Today's Communication / Plan
-
Remove newman
Assessment / Plan
-
84F with dementia, admitted with sepsis, UTI, hematuria, pneumonia
Found to have a R prox ureteral stone with hydronephrosis
Proteus bacteremia
12/16/24 - cystoscopy, R ureteral stent placement with bloody/purulent urine above stone
- Continue abx for proteus in urine and blood
- Abx course per ID
- Hematuria resolved - okay to remove newman
- Can resume Eliquis 12/20
- Outpatient follow up to arrange ureteroscopy and stone removal once infection resolved
Diagnosis
-
Date of Service: December 19, 2024
-
Patient Diagnosis:
sepsis
obstructing R prox ureteral stone
Post Op Day: s/p R stent placement 12/16
Subjective
-
n/a
Objective
-
Vital Signs
Temp Pulse Resp BP Pulse Ox
98.9 F 73 20 165/96 94
12/19/24 15:30 12/19/24 16:08 12/19/24 16:08 12/19/24 16:08 12/19/24 16:08
Intake and Output
12/18/24 12/19/24 12/20/24
06:59 06:59 06:59
Intake Total 1742 / 1742 450 / 450
Output Total 950 / 950 350 / 350
Balance 792 / 792 -350 / -350 450 / 450
Intake:
Oral fluids 120 / 120 450 / 450
IV fluids (Total) 1622 / 1622
Output:
Urine, Newman 950 / 950 350 / 350
Laboratory Results
12/19/24 04:28
12/19/24 04:28
Physical Exam
-
General - well developed, well nourished, no acute distress
Chest - clear bilaterally
Abdomen - soft, non-tender
- newman in place, clear urine
--- NOTE | 2024-12-19 18:34 | CM ---
Patient from [facility] with Hx dementia, CVA, blindness OS, with Dx Sepsis, hematuria, R ureteral stone s/p cystoscopy R ureteral stent. Receiving PO Abx. Dysphagia diet. Order to remove newman.
The ph for report [phone], fax [phone].
Plan contact patient's daughter about return to SNF.
Plan return to [facility] when medically .
[2024-12-19] MEDS: PEPCID 20 MG PO (20:11)
[2024-12-19] MEDS: ULTRAM 25 MG PO (23:23)
--- NOTE | 2024-12-19 23:37 | PTCARENOTE ---
Received pt from michael RN. Patient aox1, anxious and forgetful. Bean catheter removed at 21:30. Pt calling out at 23:00, stating she is in 8/10 pain in her lower back. One time dose 25mg PO ultram given @ 23:23.
[2024-12-20] VITALS (9 sets, daily range): BP systolic 116–179; BP diastolic 58–113; BMI 21.9
[2024-12-20] MEDS: SYNTHROID 50 MCG PO (05:14)
[2024-12-20] MEDS: HALDOL 0.5 MG IV (06:02)
[2024-12-20 06:06] LABS: ALT (SGPT) 30 U/L (0-35); AST (SGOT) 29 U/L (14-36); Albumin 3.2 g/dl (3.5-5.0); Alkaline Phosphatase 86 U/L (38-126); Blood Urea Nitrogen 27 mg/dl (7-17); Calcium 9.1 mg/dl (8.4-10.2); Carbon Dioxide 19 mmol/L (22-30); Chloride 110 mmol/L (98-107); Estimated Creatinine Clearance 53 ml/min; Glucose 97 mg/dl (70-99); Potassium 3.6 mmol/L (3.5-5.1); Sodium 141 mmol/L (135-145); Total Bilirubin 0.8 mg/dl (0.2-1.3); eGFR > 60.00
[2024-12-20 06:20] LABS: % Basophils 0.2 % (0-2); % Eosinophils 0.8 % (0-6); % Immature Granulocytes 1.6 % (0-0.5); % Lymphocytes 15.2 % (20.5-51.1); % Neutrophils 70.2 % (42.2-75.2); Absolute Eosinophils 0.1 10^3/uL (0-0.7); Absolute Immature Granulocytes 0.2 10^3/uL (0-0.05); Absolute Lymphocytes 1.4 10^3/uL (1.2-3.4); Absolute Monocytes 1.1 10^3/uL (0.1-0.6); Absolute Neutrophils 6.6 10^3/uL (1.4-6.5); Hematocrit 28.8 % (37.0-47.0); Hemoglobin 9.4 g/dL (12.0-16.0); Mean Corp Hgb Conc. 32.6 g/dL (33.0-37.0); Mean Corpuscular Hgb 29.2 pg (27.0-31.0); Mean Corpuscular Volume 89.4 fL (81.0-99.0); Mean Platelet Volume 11.2 fL (7.4-10.4); Nucleated Red Blood Cells % 0 %; Platelet Count 157 10^3/uL (130-400); Red Blood Cell Count 3.22 10^6/uL (4.20-5.40); Red Cell Dist. Width 13.7 % (11.5-14.5); White Blood Cell Count 9.4 10^3/uL (4.8-10.8)
--- NOTE | 2024-12-20 07:45 | PTCARENOTE ---
Patient given one time dose of 0.5mg IV haldol for anxiety/agitation as reported by night RN.
[2024-12-20] MEDS: OMNICEF 300 MG PO (09:56)
[2024-12-20] MEDS: FEOSOL 325 MG PO (09:56)
[2024-12-20] MEDS: CALAN EXTENDED RELEASE 180 MG PO (09:56)
[2024-12-20] MEDS: ELIQUIS 2.5 MG PO (09:56)
[2024-12-20] MEDS: NEURONTIN 200 MG PO ×2 (09:56→16:50)
[2024-12-20] MEDS: LIDOCAINE 4% PATCH 2 PATCH TOPICAL (09:56)
[2024-12-20] MEDS: MYRBETRIQ EXTENDED RELEASE 50 MG PO (09:56)
[2024-12-20] MEDS: FLUSH (NSS) IV ×2 (09:57)
--- NOTE | 2024-12-20 10:18 | PN.CDI ---
CDI
- -
CDI:
Physician Documentation Request
Admit Date: 12/16/24 13:26
Dear Doctor Ruddy,
Please review the following and provide your response in the progress notes.
Clinical Indicators:
Pt admitted with Septic shock 2/2 Proteus UTI /Hydronephrosis with ureteral stone s/p ureteral stenting
Documented per H&P, ' (To first and last name only thinks it is 1990 does not know where she is at the president is has difficulty with review of systems and what happened earlier today), No Motor Deficits (Moves all extremities in bed)...'
Pt care note 12/19 @0045,' Pt confused, with hx dementia, arousable to voice. Pt sometimes calls out, but unable to specify what she needs....'
Pt care note 12/19 @ 2337, ' Patient aox1, anxious and forgetful....'
Based on the above, could you clarify in the Progress Notes and Discharge Summary which, if any of the following, is the most likely etiology of the confusion/altered mental status.
Metabolic Encephalopathy
Dementia with acute delirium
Other ( please specify)
Use of terms such as suspected, likely, concern for, or probable (associated with a specific diagnosis that is being evaluated, monitored, or treated as if it exists) are acceptable and can be coded in the inpatient setting, when documented at the
time of discharge.
Thank you,
Deya Holman RN
CDI Specialist
[place] [employer]
Please use your independent medical judgment in providing your response.
--- NOTE | 2024-12-20 11:01 | W.PN.ID1 ---
Date of Service
Date of Service: December 20, 2024
Today's Communication
continue cefdinir
Assessment / Plan
Complicated UTI due to Proteus
Proteus bacteremia /2 to UTI
S/p stenting for obstructing renal stone
Resolved Shock
SHANDA - resolved
- newman management per urology
- continue cefdinir 12/16-12/22
- follow up with urology - eventual intervention on stone
Chief Complaint
-: UTI and Bacteremia
Subjective / Review of Systems
No flank pain.
Vital Signs / Physical Exam
Vital Signs
Vital Signs
Temp Pulse Resp BP Pulse Ox
98.0 F 72 16 154/83 96
12/20/24 07:56 12/20/24 10:00 12/20/24 10:00 12/20/24 10:00 12/20/24 08:00
Physical Exam
Constitutional: Chronically Ill
Cardiovascular: Regular Rate and S1/S2
Pulmonary: Clear
Gastrointestinal: Soft, Non Tender and Non Distended
Genito-Urinary: Negative Newman or CVA Tenderness
Extremities: Negative Edema
Objective Data
Lab Data
Lab Results
12/20/24 05:13
12/20/24 05:13
PT 24.0 Sec (11.4-14.6) H 12/16/24 11:31
INR 2.13 12/16/24 11:31
APTT 44.7 Sec (23.4-35.0) H 12/16/24 11:31
Estimated Creat Clear 53 ml/min 12/20/24 05:13
Lactic Acid 1.8 mmol/L (0.7-2.0) 12/16/24 16:37
Total Bilirubin 0.8 mg/dl (0.2-1.3) 12/20/24 05:13
AST 29 U/L (14-36) 12/20/24 05:13
ALT 30 U/L (0-35) 12/20/24 05:13
Alkaline Phosphatase 86 U/L (38-126) 12/20/24 05:13
Most recent labs reviewed.
Micro Results:
12/17/24 14:54 Blood Culture - Preliminary
Blood/Venous No Growth in 48 hours- Final report to follow
12/18/24 06:28 Respiratory Culture - Preliminary
Sputum Usual Respiratory Renee
Gram Stain - Preliminary
12/16/24 11:29 Blood Culture - Preliminary
Blood/Venous Proteus mirabilis
Gram Stain - Preliminary
12/16/24 11:29 Blood Culture - Final
Blood/Venous Proteus mirabilis
Gram Stain - Final
12/16/24 11:10 Urine Culture - Final
Urine Proteus mirabilis
12/17/24 05:43 MRSA Screen - Final
Nose No Methicillin Resistant Staphylococcus aureus isolated.
12/16/24 13:57 Nasal Screen MRSA (PCR) - Final
Nose MRSA not detected - performed by PCR methodology.
12/16/24 10:39 Influenza Types A & B (BERNICE) - Final
Nasal Swab Negative for Influenza A & B, NAAT
Negative results must be combined with clinical observations
and patient history.
Nucleic Acid Amplification test (NAAT)performed on the
[employer] platform.
--- NOTE | 2024-12-20 11:51 | CM ---
Addendum entered by Temi Batista 12/20/24 16:00:
Ambulance pecan picker scheduled for [phone]
Addendum entered by Temi Batista 12/20/24 14:12:
CM received a call back from patient's daughter, Isabella; she was agreeable with mother's discharge plan
IMM benefit explained; form dated/timed 12/20/24 @ 1335
Ambulance pecan picker requested; pecan picker scheduled for [phone];[place] @ [facility] notified via text
Original Note:
Per Attending, patient is stable to return to [facility]; bed is on hold
Facility notified and able to accept patient today
Plan: Return to [facility] today via ambulance
Report # [phone]; A2 Unit
--- NOTE | 2024-12-20 12:28 | PTCARENOTE ---
Patient awake and alert. Confused at baseline. Knows name and date but not the year she was born. Confusion worse in the evening. Poor appetite. Aspiration precautions and is a feed. VS stable. Lungs diminished on room air. Bean
catheter removed last night. Patient INC of urine,voiding good amounts. Bed alarm on. Patient to go back to [facility] today. Will continue to monitor.
--- NOTE | 2024-12-20 13:31 | W.PN.HOSP.TC ---
Addendum entered and electronically signed by Willi Fox MD 12/23/24 14:23:
Metabolic Encephalopathy
Addendum entered and electronically signed by Willi Fox MD 12/23/24 14:18:
Sacrum and coccyx non blanchable red, stage 1 PI
Permanent atrial fibrillation
Addendum entered and electronically signed by Willi Fox MD 12/22/24 16:06:
[id number]
Original Note:
Today's Communication/Plan
-
-can resume eliquis
-removed newman 12/19
-Outpatient follow up to arrange ureteroscopy and stone removal once infection resolved
-cefdinir until 12/22
- F/u PCP, Urology outpt
Assessment / Plan
Assessment / Plan
Physical Exam
General: Conversant, Fever and Chills; No Pain
HEENT: NormoCephalic, Anicteric, PERRLA, [place] Conjunctivae, Oxygen (4 L nasal cannula) and Other (Chronic ptosis); No Neck Nontender
Respiratory: Clear; No Wheezes, Rales or Rhonchi
Cardiac: S1/S2 and Other; No Murmur, Rub, Gallop or Peripheral Edema
Breast: Deferred by me
GI: Soft, Non Tender, Non Distended, Normal Bowel Sounds and No Hepatosplenomegaly
Rectal: Deferred by Provider
Genito-urinary: Deferred by me
Musculoskeletal: No Clubbing, No Cyanosis and No Edema
Skin: Warm and Dry; No Rash or Jaundice
Neuro: Awake, Alert, Oriented AAO1-2; No Motor Deficits (Moves all extremities in bed), No Sensory Deficits and Other (Chronic left upper eyelid ptosis); No Slurred Speech, Facial Droop, Tremors or Sedated
Psych: Calm
# Severe sepsis
#Complicated UTI
#Bacteremia, proteus
-continue abx - Ceftriaxone 2gm -switch to cefdinir 12/16 - 12/22
-ivf PRN
-ID consulted
#R prox ureteral stone with hydronephrosis
#Hematuria
-12/16/24 - cystoscopy, R ureteral stent placement with bloody/purulent urine above stone
-see plan above
-Outpatient follow up to arrange ureteroscopy and stone removal once infection resolved
-can resume eliquis
-removed newman 12/19
-Outpatient follow up to arrange ureteroscopy and stone removal once infection resolved
#Hypotension
-improved
-11/24 to sepsis
-add back htn regimen as needed
Hypokalemia
� Monitor and replace
#Acute hypoxic respiratory insufficiency, resolved
-more than likely 11/24 to atelectasis v less likely pneumonia
89% RA, 93% 4 L nasal cannula
resolved
#SHANDA secondary to sepsis and possible hypovolemia
-probable septic atn
-monitor with resuscitation
-Follow BMP
-resolved
#Elevated troponin
� Probable nonischemic myocardial injury secondary to severe sepsis
� Follow-up echo - no WMA; EF 55%; Stage III diastolic dysfunction suggestive of restrictive filling pattern and increased filling pressures.
� Cardiology consulted
-f/u cards outpt
#Chronic back pain on chronic opiates
-Continue fentanyl patch 28.8 mg due tomorrow 12/17/2024 then every 72 hours
-Continue gabapentin 500 mg 3 times daily
#Acute on chronic anemia�normocytic
Hgb 9.6, MCV 92.5Hemoglobin appears baseline
-Follow CBC
#Permanent Pacemaker-Tachybradycardia
-cards monitors remotely
#Paroxysmal A-fib
Hold Eliquis due to hematuria
#CVA Hx
-Continue BP control hold Eliquis due to cystitis
HLD
-No reported statins
#Hypothyroidism
-Continue levothyroxine 50 mcg p.o. daily
-Check TSH with free T4 reflex
#Chronic ptosis left eyelid
#HTn
Restart verapamil
#Couple of rounded low-attenuation lesions within the pelvis, presumably representing ovarian cysts versus less likely fibroids. The larger lesion within the right pelvis measures 4.6 cm. The left pelvic lesion measures 3.2 cm.
-f/u outpt
#Extensive aortoiliac atherosclerotic disease with bulky plaque at the origin of the SMA likely occlusive or flow-limiting.
-resume anticoag once cleared
f/u cards outpt
#DVT ppx
scd
More than 30 minutes spent in discharge including
Final examination of the patient
Summarizing hospital stay
Instructions for continuing care to all relevant caregivers
Preparation of discharge records, prescriptions, and referral forms
Total time spent (36 in minutes):
Anticipated Discharge: Today
Subjective/Interval History
-
Date of Service: December 20, 2024
newman out, hematuria resolved
Objective Data
-
Labs:
Laboratory Results
12/20/24
05:13
WBC 9.4
Hgb 9.4 L
Hct 28.8 L
Plt Count 157
Sodium 141
Potassium 3.6
Chloride 110 H
Carbon Dioxide 19 L
BUN 27 H
Creatinine 0.6
Glucose 97
Calcium 9.1
Total Bilirubin 0.8
AST 29
ALT 30
Alkaline Phosphatase 86
Vital Signs:
Vital Signs
Temp Pulse Resp BP Pulse Ox
97.9 F 60 21 116/58 94
12/20/24 11:20 12/20/24 12:00 12/20/24 12:00 12/20/24 12:00 12/20/24 13:01
I&O
12/19/24 12/20/24 12/21/24
06:59 06:59 06:59
Intake Total 690 / 690 325 / 325
Output Total 350 / 350 200 / 200
Balance -350 / -350 490 / 490 325 / 325
Review of Systems
-
History Source: Patient
All other systems: Not reviewed unless documented
Data Reviewed
-
CT Scan: Image personally visualized and interpreted and Report Reviewed by me
Labs: Labs Reviewed by me
--- NOTE | 2024-12-20 13:36 | W.DS.TRANS ---
DC Summary - Public Affairs Officer
-
Discharge Instructions:
Discharge Diagnosis/Procedures Complicated UTI due to Proteus
Proteus bacteremia 2/2 to UTI
S/p stenting for obstructing renal stone
Resolved Shock
Diet Low Cholesterol,Low Fat,Other diet
Additional Diets IDDSI 5, minced and moist
Activity As tolerated
Blood Work cbc and bmp in 3-5 days with pcp
Others Tests Extensive aortoiliac atherosclerotic disease
with bulky plaque at the origin of the SMA
likely occlusive or flow-limiting - f/u outpt
Couple of rounded low-attenuation lesions within
the pelvis, presumably representing ovarian
cysts versus less likely fibroids. The larger
lesion within the right pelvis measures 4.6 cm.
The left pelvic lesion measures 3.2 cm. - F/u
outpt
Instructions:
Stand-Alone Forms:
Changes to Home Medications: Yes
Discharge Medications:
DC Medications w/original date entered in [facility]
levothyroxine 50 mcg tablet 50 mcg PO DAILY Thyroid 11/06/15
verapamil 120 mg tablet,extended release 180 mg PO DAILY Heart Disease/Condition 11/06/15
acetaminophen 325 mg tablet 650 mg PO Q4HPRN PRN pain 07/12/24
apixaban 2.5 mg tablet (Eliquis) 2.5 mg PO BID Blood Clot Prevention/Tx 07/12/24
ascorbic acid (vitamin C) 500 mg tablet 500 mg PO BID Supplement 07/12/24
famotidine 20 mg tablet 20 mg PO HS Gastrointestinal Issue 07/12/24
fentanyl 12 mcg/hr transdermal patch 1 patch transdermal Q72H Pain 07/12/24
ferrous sulfate 325 mg (65 mg iron) tablet 325 mg PO DAILY Supplement 07/12/24
mirabegron 50 mg tablet,extended release 24 hr (Myrbetriq) 50 mg PO DAILY Urinary Issue 07/12/24
bisacodyl 10 mg rectal suppository (Dulcolax (bisacodyl)) 10 mg WA [id number] PRN if no bm aftr mom 12/16/24
docusate sodium 100 mg capsule 100 mg PO DAILYPRN PRN constipation 12/16/24
lidocaine 5 % topical patch 2 patch topical DAILY lower back 12/16/24
magnesium hydroxide 400 mg/5 mL oral suspension (Milk of Magnesia) 2,400 mg PO HSPRN PRN constipation 12/16/24
phenylephrine 0.25 %-pramoxine 1 %-glycerin-wh.petrolatum rectal cream (Preparation H Maximum Strength) 1 applic WA BIDPRN PRN hemmorriods 12/16/24
cefdinir 300 mg capsule 300 mg PO Q12 3 days #6 caps 12/20/24
gabapentin 100 mg capsule 300 mg (3 x 100 mg) PO TID Pain #0 caps 12/20/24
Home Medication Changes
cefdinir 300 mg capsule 300 mg PO Q12 3 days #6 caps 12/20/24
gabapentin 100 mg capsule 300 mg (3 x 100 mg) PO TID Pain #0 caps 12/20/24
Pending Results: No
[2024-12-20] MEDS: TYLENOL 650 MG PO (16:50)
== END 2024-12-20 18:22 | DRG 853 ==
LOC: IMU 13:26
PROVIDERS: Clinical Nurse Specialist Family Health; Registered Nurse; ADMITTING PHYSICIAN Hospitalist; ATTENDING PHYSICIAN Internal Medicine; CONSULT PHYSICIAN Internal Medicine Cardiovascular Disease; CONSULT PHYSICIAN Student in an Organized Health Care Education/Training Program; CONSULT PHYSICIAN Urology; EMERGENCY PHYSICIAN Student in an Organized Health Care Education/Training Program; FAMILY PHYSICIAN Family Medicine
PROC: 0T768DZ Dilation of Right Ureter with Intraluminal Device, Via Natural or Artificial Opening Endoscopic (ICD-10-PCS; 2024-12-16)
DX: A41.59 Other Gram-negative sepsis (principal); G93.41 Metabolic encephalopathy; J96.01 Acute respiratory failure with hypoxia; R65.21 Severe sepsis with septic shock; N13.6 Pyonephrosis; I48.21 Permanent atrial fibrillation; N17.9 Acute kidney failure, unspecified; J98.11 Atelectasis; I5A Non-ischemic myocardial injury (non-traumatic); F03.90 Unspecified dementia, unspecified severity, without behavioral disturbance, psychotic disturbance, mood disturbance, and anxiety; I10 Essential (primary) hypertension; N32.81 Overactive bladder; Z86.73 Personal history of transient ischemic attack (TIA), and cerebral infarction without residual deficits; I49.5 Sick sinus syndrome; D63.8 Anemia in other chronic diseases classified elsewhere; E78.00 Pure hypercholesterolemia, unspecified; Z79.891 Long term (current) use of opiate analgesic; H02.402 Unspecified ptosis of left eyelid; Z79.01 Long term (current) use of anticoagulants; Z95.0 Presence of cardiac pacemaker; Z98.41 Cataract extraction status, right eye; Z88.8 Allergy status to other drugs, medicaments and biological substances; Z79.890 Hormone replacement therapy; E03.9 Hypothyroidism, unspecified; G89.29 Other chronic pain; R13.10 Dysphagia, unspecified; Z66 Do not resuscitate; Z79.899 Other long term (current) drug therapy; Z90.710 Acquired absence of both cervix and uterus; Z11.52 Encounter for screening for COVID-19; L89.151 Pressure ulcer of sacral region, stage 1
CPT/HCPCS: 51701; 71045; 74176; 74420; 76000; 80053; 80061; 80202; 81003; 81015; 83605; 83735; 84439; 84443; 84484; 85025; 85610; 85730; 86850; 86900; 86901; 87040; 87070; 87086; 87088; 87149; 87186; 87205; 87502; 87641; 87811; 92526; 92610; 93005; 93306; 96361; 96374; 99285; C1769; C2617

== ENCOUNTER → 2024-12-24 09:59 | Outpatient (REF) | payer MEDICARE, OTHER, SELFPAY ==
[2024-12-24 10:43] LABS: Hematocrit 25.8 % (37.0-47.0); Hemoglobin 8.6 g/dL (12.0-16.0); Mean Corp Hgb Conc. 33.3 g/dL (33.0-37.0); Mean Corpuscular Hgb 30.2 pg (27.0-31.0); Mean Corpuscular Volume 90.5 fL (81.0-99.0); Mean Platelet Volume 11.6 fL (7.4-10.4); Platelet Count 162 10^3/uL (130-400); Red Blood Cell Count 2.85 10^6/uL (4.20-5.40); Red Cell Dist. Width 14.4 % (11.5-14.5); White Blood Cell Count 8.8 10^3/uL (4.8-10.8)
[2024-12-24 10:58] LABS: Blood Urea Nitrogen 15 mg/dl (7-17); Calcium 8.5 mg/dl (8.4-10.2); Carbon Dioxide 22 mmol/L (22-30); Chloride 108 mmol/L (98-107); Glucose 82 mg/dl (70-99); Potassium 3.6 mmol/L (3.5-5.1); Sodium 138 mmol/L (135-145); eGFR > 60.00
== END ==
LOC: OLABN 09:59
PROVIDERS: ATTENDING PHYSICIAN Student in an Organized Health Care Education/Training Program
DX: I10 Essential (primary) hypertension (principal)
CPT/HCPCS: 36415; 80048; 85027

== ENCOUNTER → 2025-01-16 11:06 | Outpatient (REF) | payer MEDICARE, OTHER, SELFPAY ==
[2025-01-16 12:31] LABS: Hematocrit 27.4 % (37.0-47.0); Hemoglobin 8.7 g/dL (12.0-16.0); Mean Corp Hgb Conc. 31.8 g/dL (33.0-37.0); Mean Corpuscular Hgb 28.9 pg (27.0-31.0); Mean Platelet Volume 10.8 fL (7.4-10.4); Platelet Count 150 10^3/uL (130-400); Red Blood Cell Count 3.01 10^6/uL (4.20-5.40); Red Cell Dist. Width 14.5 % (11.5-14.5); White Blood Cell Count 5.1 10^3/uL (4.8-10.8)
[2025-01-16 12:38] LABS: Blood Urea Nitrogen 24 mg/dl (7-17); Calcium 9.1 mg/dl (8.4-10.2); Carbon Dioxide 27 mmol/L (22-30); Chloride 108 mmol/L (98-107); Glucose 87 mg/dl (70-99); Potassium 3.9 mmol/L (3.5-5.1); Sodium 140 mmol/L (135-145); eGFR > 60.00
[2025-01-16 14:05] LABS: % Basophils 0.8 % (0-2); % Eosinophils 2.6 % (0-6); % Immature Granulocytes 0.4 % (0-0.5); % Lymphocytes 29.9 % (20.5-51.1); % Monocytes 15.6 % (1.7-9.3); % Neutrophils 50.7 % (42.2-75.2); Absolute Eosinophils 0.1 10^3/uL (0-0.7); Absolute Lymphocytes 1.5 10^3/uL (1.2-3.4); Absolute Monocytes 0.8 10^3/uL (0.1-0.6); Absolute Neutrophils 2.6 10^3/uL (1.4-6.5); Nucleated Red Blood Cells % 0 %
== END ==
LOC: OLABN 11:06
PROVIDERS: ATTENDING PHYSICIAN Student in an Organized Health Care Education/Training Program
DX: I10 Essential (primary) hypertension (principal)
CPT/HCPCS: 36415; 80048; 85025

== ENCOUNTER 2025-01-23 06:20 | Day surgery (SDC) | payer MEDICARE, OTHER, SELFPAY ==
[2025-01-23] VITALS (7 sets, daily range): BP systolic 123–134; BP diastolic 62–80; BMI 20.6
--- NOTE | 2025-01-23 11:28 | PTCARENOTE ---
Patients HGB was 8.7. Anesthesia made aware. No further orders.
[2025-01-26 21:58] LABS: Stone Analysis Mass 9 mg
== END 2025-01-23 14:47 | disposition home or self-care (01) ==
LOC: SDS 06:20
PROVIDERS: ATTENDING PHYSICIAN Urology
DX: N20.1 Calculus of ureter (principal)
CPT/HCPCS: 52356; 74018; 76000; 82365; C1769; C2617

== ENCOUNTER 2025-01-31 06:36 | Inpatient (IN) | payer MEDICARE, OTHER, SELFPAY ==
[2025-01-31] VITALS (16 sets, daily range): BP systolic 85–130; BP diastolic 47–95; PULSE 2–98; BMI 19.3
--- NOTE | 2025-01-31 04:27 | ED.GENMED ---
History of Present Illness
General
Chief Complaint: Breathing Problem
Source: patient and ambulance crew
Exam Limitations: none
Time Seen by Provider: 01/31/25 04:27
Nursing documentation reviewed up to this point in time: agreed with
History of Present Illness
History of Present Illness:
Pleasant 84-year-old female brought in by [facility] for acute respiratory distress. Patient is a DNR comfort measures only. Attempts to contact the daughter to discover patient's full wishes went unanswered thus far. Patient does have a
POLST form with her. It says that she is DNR comfort measures only. He does allow for medications. History is limited at this point based on EMS report alone. Patient suffers from dementia and is a poor historian. After speaking with the charge
supervisor mapping at [facility], patient was found to have an O2 saturation of 70% on room air.
Vital signs are stable. Hypoxic on room air
Nursing note reviewed. I agree with nursing documentation up to this point in time.
Home Meds and allergies reviewed.
NUMBER AND COMPLEXITY OF PROBLEMS ADDRESSED AT THE ENCOUNTER
� Chronic conditions affecting care: Dementia, CVA, A-fib, hypertension, hyperlipidemia, tachybradycardia syndrome with pacemaker, constipation, dysphagia, GERD, stomach ulcers, blindness of the left eye, UTI, anemia
� Acute Exacerbation and/or Progression of Chronic Illness:
� Differential Diagnosis includes:
AMOUNT AND/OR COMPLEXITY OF DATA TO BE REVIEWED AND ANALYZED
I performed an independent evaluation of the following and my interpretation is:
EKG: EKG shows ventricular paced rhythm rate of 96
Pulse Ox: Hypoxic on room air
[employer]: Ventricular rhythm
CT:
X-rays:
Ultrasound:
Laboratory Studies: 1040 hemoglobin 9.7
Other:
Review of other/old records:
Clinical information was obtained by an independent historian:
Prescriptions/Medications Considered but not given:
Further testing considered but not performed:
RISK OF COMPLICATIONS AND/OR MORBIDITY OR MORTALITY OF PATIENT MANAGEMENT
Social determinants of health affecting care: Good Social Support
Discussion with other providers:
Escalation of care including admission/observation vs risk of discharge considered: After being observed in the emergency department, patient is
CRITICAL CARE NOTE:
Total Time (exclusive of procedures):
Update:
Past History
Past History
ED Past Medical History: Arrthythmia (Afib), CVA, Hypercholesterolemia, Hypothyroidism and Other (Anemia of chronic disease)
ED Past Surgical History: Cardiac (Pacemaker) and Other (Left eye surgeries x 20)
Social History
Tobacco: Non-smoker
Alcohol: Daily
Personal: Single
Living: senior care
Employment: Retired
Family History
Family History: Other (reviewed and non-contributory)
Review of Systems
Review of Systems
Unable to obtain full review of systems at this time due to: dementia
Other source history: senior care and ambulance crew
All Other Systems: Not applicable
Respiratory: Reports trouble breathing
Phy Exam
General Physical Exam
General Presentation: moderate distress
General age: appears stated age
General Skin: warm and dry
General Habitus: normal
Pulmonary Exam
Pulmonary Exam: generalized wheezing and respiratory distress
Oxygen Status: BiPAP (pt refused)
Respirations: accessory muscle use, labored, mild increase in effort and retractions
Scores
Heart Failure Risk
Heart Failure Risk Score: Not Applicable
Course
Orders/Labs/Results
Orders:
Orders
01/31/25 04:33
Electrocardiogram (*1) Stat
Reason for Study: Other
Other Reason for Exam: chest pain
EKG- Treatment ONCE
01/31/25 04:41
Complete Blood Count/With Diff Urgent
Magnesium Urgent
NT-proBNP Urgent
PTT Urgent
Prothrombin Time Urgent
TSH Urgent
01/31/25 05:03
Furosemide [Lasix] 40 mg IV NOW STA
01/31/25 05:05
CR Chest Portable - 1 View Urgent
Comment:
Reason For Exam: dyspnea
Reason Study Needs to be Portable: Patient Unstable
01/31/25 05:48
BMP [Basic Metabolic Panel] Stat
COVID-19 Antigen Stat
Source: Nasal Swab
Procalcitonin Stat
PCT Algorithmm Indication: Respiratory
Troponin I Stat
Influenza A+B Rapid Molecular Stat
EMMA Source: Nasal Swab
Specimen Description:
01/31/25 06:00
Flush (0.9% Sodium Chloride) [Flush (Nss)] See Dose Instructions IV PER PROTOCOL
01/31/25 06:11
Admit/Transfer Patient As Directed
Co-Sign Provider:
Level of Care: Inpatient admission
Assign to:: IMU- Intermediate Care
Physician / Group: hospitalist
Diagnosis: hypoxic respiratory failure
Reason for Hospitalization: acute hypoxic respiratory failure
Expected length of stay greater than two midnights?: Yes
ELOS- Estimated Length of Stay in days: 2
I certify the patient meets the requirements for IP care: Yes
Respiratory Culture/Gram Stain Urgent
EMMA Source: Sputum
Specimen Description:
01/31/25 06:12
PRN Pain Medication Management As Directed
May give lesser potent ordered pain med per pt: Yes
preference::
Protocol:: Medication orders for pain may be administered in a
manner that supports deferring to patient preference
when the pt is:
- Requesting an ordered lesser potent pain medication.
Least to most potent pain medications are defined
as: acetaminophen < NSAID < tramadol < opioids
(morphine, oxycodone, hydromorphone).
- Requesting a lesser dose of the same medication IF
ORDERED.
- Requesting a less intrusive route of administration
if both routes are prescribed by the provider (PO <
IV).
01/31/25 06:21
MRSA Screen Routine
EMMA Source: Nose
Specimen Description:
01/31/25 06:23
Code Status As Directed
Resuscitation Status: Do not resuscitate
Reached after discussion with pt or family/Healthcare POA: Yes
DNR Bracelet Application ONCE
01/31/25 06:28
Albuterol Nebs [Ventolin Nebules] 2.5 mg INH R NOW STA
Albuterol Nebs [Ventolin Nebules] 2.5 mg INH R NOW STA
01/31/25 06:35
Suction Patient As Directed
Route of Suctioning: Oropharyngeal
01/31/25 09:39
Bisacodyl [Dulcolax] 10 mg RECTAL Q72H PRN
Docusate Sodium [Colace] 100 mg PO DAILYPRN PRN
Ferrous Sulfate [Feosol] 325 mg PO DAILY
Gabapentin [Neurontin] 300 mg PO TID
Ipratropium/Albuterol Sulfate [Duoneb] 3 ml INH R Q4HPRN PRN
Ipratropium/Albuterol Sulfate [Duoneb] 3 ml INH R QID
Ondansetron Injectable [Zofran] 4 mg IV Q6HPRN PRN
01/31/25 09:39
CARDIOLOGY CONSULT Routine
Consulting Provider: Errol Chaudhary
Was physician already notified: No
Reason for consult: CHF exacerbation, h/o asymptomatic diastolic chf
Consult Notification Routine
Specialty to Notify: Cardiology
Date consulting provider notified: 01/31/25
Time consulting provider notified: 10:28
Notified:: Other
HF DIETARY CONSULT Routine
HF EDUCATOR CONSULT Routine
Comment:
VTE Contraindication Routine
VTE Mechanical Device Contraindication: Medical Contraindication
Pharmocologic Contraindication: Medical Contraindication
Activity As Directed
Activity Level: With Assistance
Fentanyl Patch Confirmation BID@[id number],1900
Intake/ Output As Directed
Frequency: Per unit guidelines
Patient Education As Directed
Type: CHF folder
Comment: give on admission. Document in Interdisciplinary Education record
Sleep Apnea Assessment by RN As Directed
Comment:
Physician Instructions:
Vital Signs As Directed
Frequency: Per unit guidelines
Weight As Directed
Frequency: Daily
Type of Scale: Standing Scale
Comment: Daily morning weight. If unable to stand, use balanced bed scale.
Weight As Directed
Frequency: Once
Type of Scale: Standing Scale
Comment: Upon Admission. If unable to stand, use balanced bed scale.
High Flow Oxygen Therapy [O2 Therapy] [RESP] Routine
High Flow Nasal Cannula FIO2%: 100
High Flow Nasal Cannula Liter Flow: 60
Titrate/Wean O2 to maintain O2 sat greater than (%): 93
Oxygen Mask - Non-rebreather [RESP] Routine
Pulse Ox/cont/shift [RESP] Routine
Quantity: 1
Special Instructions: Daily pulse oximetry at rest. If greater than 92% at rest also obtain pulse oximetry
while ambulating as tolerated.
01/31/25 10:00
Verapamil Extended Release [Calan Extended Release] 180 mg PO DAILY
01/31/25 10:22
Troponin I Q6H
Comment: at admission & every 6 hours x 2 (3 total), ECG to be done with each level
01/31/25 11:00
FentaNYL 12 MCG/HR PATCH [Duragesic 12 Mcg/Hr Patch] 1 patch TRANSDERM Q72H
01/31/25 15:54
Troponin I Q6H
Comment: at admission & every 6 hours x 2 (3 total), ECG to be done with each level
01/31/25 16:00
Furosemide [Lasix] 40 mg IV BID AT 0800,1600
01/31/25 22:00
Acetaminophen [Tylenol] 650 mg PO HS
Famotidine [Pepcid] 20 mg PO HS
02/01/25 03:14
Basic Metabolic Panel IN AM
Complete Blood Count/No Diff IN AM
Magnesium IN AM
Phosphorus IN AM
02/01/25 06:00
Levothyroxine [Synthroid] 50 mcg PO DAILY@0600
02/01/25 08:00
Mirabegron Extended Release [Myrbetriq Extended Release] 50 mg PO DAILY
02/02/25 06:34
Basic Metabolic Panel IN AM
02/03/25 06:00
Basic Metabolic Panel IN AM
02/03/25 11:00
REMOVE fentaNYL PATCH [Remove Duragesic Patch] See Dose Instructions REMOVE Q72H
Abnormal Lab Results
01/31/25 01/31/25
04:41 05:48
RBC 3.31 L 10^6/uL
(4.20-5.40)
Hgb 9.7 L g/dL
(12.0-16.0)
Hct 30.8 L %
(37.0-47.0)
MCHC 31.5 L g/dL
(33.0-37.0)
RDW 14.7 H %
(11.5-14.5)
Abs Immat Gran (auto) 0.1 H 10^3/uL
(0-0.05)
Absolute Neuts (auto) 8.3 H 10^3/uL
(1.4-6.5)
Absolute Monos (auto) 0.7 H 10^3/uL
(0.1-0.6)
Immature Gran % 0.6 H %
(0-0.5)
Neutrophils % 77.5 H %
(42.2-75.2)
Lymphocytes % 14.0 L %
(20.5-51.1)
PT 16.5 H Sec
(11.4-14.6)
Chloride 110 H mmol/L
(98-107)
BUN 23 H mg/dl
(7-17)
Glucose 105 H mg/dl
(70-99)
Troponin I 0.172 H* ng/ml
01/31/25 04:41
01/31/25 05:48
Vital Signs
Initial and Last Documented VS:
Initial Vital Signs
Pulse Ox
94
01/31/25 04:28
Last Documented Vital Signs
Temp Pulse Resp BP Pulse Ox
98.1 F 75 18 148/101 97
02/02/25 12:04 02/02/25 14:20 02/02/25 10:05 02/02/25 14:20 02/02/25 10:23
*Critical Care Note
Total Time (30-74mins, 75-104mins- exclusive of procedures): Not Applicable
Update Note
Update Note:
2 attempts to call her daughter Ismael Strong at [phone] went unanswered.
Called the charge supervisor mapping at [facility]. She was able to get me patient's other daughter Isabella Rosa. I attempted to call her at [phone]. I was able to leave a message.
ED Attending Note
-
Portions of this chart may have been created with voice recognition software.� Occasional wrong word or��sound alike� substitutions may have occurred due to the inherent limitations of voice recognition software.
Discharge Plan
Departure
Patient Disposition: Admit
Date of Disposition: 01/31/25
Time of Disposition: 05:24
Presentation/result/management discussed w/ accepting MD/DO: Hospitalist
Condition: Good
Discharge Problem:
Acute exacerbation of CHF (congestive heart failure)
Interventions
Interventions:
*Risk Screen - Suicide Last Done: 01/31/25 22:33
*General Assessment Last Done: 01/31/25 04:28
*Neglect/Abuse Screening Last Done: 01/31/25 04:28
*ED- Fall Risk Assessment Last Done: 01/31/25 04:28
*ED COVID-19 Vaccine History Last Done: 01/31/25 22:33
*Nursing Disposition Last Done: 01/31/25 19:38
ED- Cardiac Assessment Last Done: 01/31/25 15:00
ED- Pulmonary Assessment Last Done: 01/31/25 15:00
Discharge Date and Time
Discharge Date/Time: 01/31/25 19:49
[2025-01-31 05:00] LABS: % Basophils 0.4 % (0-2); % Eosinophils 1.4 % (0-6); % Immature Granulocytes 0.6 % (0-0.5); % Monocytes 6.1 % (1.7-9.3); % Neutrophils 77.5 % (42.2-75.2); Absolute Eosinophils 0.2 10^3/uL (0-0.7); Absolute Immature Granulocytes 0.1 10^3/uL (0-0.05); Absolute Lymphocytes 1.5 10^3/uL (1.2-3.4); Absolute Monocytes 0.7 10^3/uL (0.1-0.6); Absolute Neutrophils 8.3 10^3/uL (1.4-6.5); Hematocrit 30.8 % (37.0-47.0); Hemoglobin 9.7 g/dL (12.0-16.0); Mean Corp Hgb Conc. 31.5 g/dL (33.0-37.0); Mean Corpuscular Hgb 29.3 pg (27.0-31.0); Mean Corpuscular Volume 93.1 fL (81.0-99.0); Mean Platelet Volume 10.4 fL (7.4-10.4); Nucleated Red Blood Cells % 0 %; Platelet Count 207 10^3/uL (130-400); Red Blood Cell Count 3.31 10^6/uL (4.20-5.40); Red Cell Dist. Width 14.7 % (11.5-14.5); White Blood Cell Count 10.8 10^3/uL (4.8-10.8)
[2025-01-31] MEDS: LASIX 40 MG IV (05:05)
[2025-01-31 05:10] LABS: INR 1.28; PT 16.5 Sec (11.4-14.6)
[2025-01-31 05:11] LABS: APTT 32.7 Sec (23.4-35.0)
[2025-01-31 05:33] LABS: NT-proBNP 8410 pg/ml
--- NOTE | 2025-01-31 05:42 | HPS.HSE ---
Addendum entered and electronically signed by Natalie Martinez MD 01/31/25 07:11:
Code Status - As above d/w family and patient's goal is DNR, no invasive procedures. Family will have to change POLSTS to remove the comfort measures only and no hospital transfer. They understand this. Ultimately there is some ambivalence about
when to withhold care as she has been through sepsis and pulled through, had procedures done and pulled through in the recent past. Although I stated no invasive measures and likely not a candidate for cath, its up to cardiology and family to
determine if they would proceed. Recommending palliative consult in am and possible hospice.
Original Note:
Family Physician
-
Family Physician: NOT KNOW UNKNOWN - PT DOES
Chief Complaint
-
Hypoxic respiratory failure
History of Present Illness
Patient seen acute hypoxic respiratory distress and is unable to provide history in part due to dementia and also in part due to respiratory extremity.
Briefly, this is a 84-year-old female who has past medical history that is significant for pontine atrial fibrillation, sick sinus syndrome status post dual-chamber pacemaker, history of CVA, hypothyroid, diastolic CHF but no history of symptomatic
CHF, no history of CAD, recent admission for severe sepsis with complicated UTI and Proteus bacteremia likely secondary to UTI which was further complicated by right proximal ureteral stone and hydronephrosis status post cystoscopy and right
ureteral stent placement who appears to have had the stent removed on and has had outpatient follow-up to arrange for stone removal who comes into the emergency department today with acute episode of hypoxia.
Very poor history as patient is unable to provide any additional history. Records indicated that she was found to be hypoxic to 70s on room air. She was not on home oxygen. She was placed on 10 L nonrebreather and she was only satting into the
80s. When EMS arrived they put her on 15 L nonrebreather and that increased sats to the 90s. When asked when the emergency department she was satting 99% on 15 L nonrebreather. She refused BiPAP.
She was afebrile, blood pressure was 122/65 and she had a rhythm with a pulse of 93 respiratory rate of 25. ECG shows a sensed V paced and no acute changes otherwise. CBC was unchanged from prior with white count of 10.8 hemoglobin 9.7 bili of 2 7.
Electrolytes are pending. BNP is markedly increased to over 8000. X-ray with pulmonary edema by my read but cannot rule out bilateral consolidations. Chemistries are unremarkable.
Medical History
Past Medical History
Past Medical History: Reports Other
Additional Past Medical History:
Dementia oriented to first and last name only thinks it is 1987
hypertension
overactive bladder
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
chronic normocytic anemia
chronic back pain on chronic opiates
Paroxysmal A-fib on Eliquis
CVA
HLD
chronic ambulatory dysfunction uses Pavel wheelchair
chronic ptosis left eyelid
Mechanical soft diet
Past Surgical History: Reports Other
Additional Past Surgical History:
Hysterectomy
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
Right cataract extraction 2014
Social History
Tobacco: Non-smoker
Drug: None
Living: Long Term ([facility])
Employment: Retired
Family History
Family History: Unable to Obtain
Allergies / Home Medications
Allergies reflects when Allergies were last updated in [employer].
Home Medications with original date entered in [employer]
Allergy/Medication List:
Allergies
Allergy/AdvReac Type Severity Reaction Status Date / Time
lisinopril Allergy Severe angioedema Verified 07/12/24 09:32
Home Medications
levothyroxine 50 mcg tablet 50 mcg PO DAILY 11/06/15
verapamil 120 mg tablet,extended release 180 mg PO DAILY 11/06/15
acetaminophen 325 mg tablet 650 mg PO Q4HPRN PRN pain 07/12/24
apixaban 2.5 mg tablet (Eliquis) 2.5 mg PO BID 07/12/24
ascorbic acid (vitamin C) 500 mg tablet 500 mg PO BID 07/12/24
famotidine 20 mg tablet 20 mg PO HS 07/12/24
fentanyl 12 mcg/hr transdermal patch 1 patch transdermal Q72H 07/12/24
ferrous sulfate 325 mg (65 mg iron) tablet 325 mg PO DAILY 07/12/24
mirabegron 50 mg tablet,extended release 24 hr (Myrbetriq) 50 mg PO DAILY 07/12/24
bisacodyl 10 mg rectal suppository (Dulcolax (bisacodyl)) 10 mg MA [id number] PRN if no bm aftr mom 12/16/24
docusate sodium 100 mg capsule 100 mg PO DAILYPRN PRN constipation 12/16/24
gabapentin 100 mg capsule 100 mg PO TID 12/16/24
gabapentin 400 mg tablet 400 mg PO TID 12/16/24
lidocaine 5 % topical patch 2 patch topical DAILY lower back 12/16/24
magnesium hydroxide 400 mg/5 mL oral suspension (Milk of Magnesia) 2,400 mg PO HSPRN PRN constipation 12/16/24
phenylephrine 0.25 %-pramoxine 1 %-glycerin-wh.petrolatum rectal cream (Preparation H Maximum Strength) 1 applic MA BIDPRN PRN hemmorriods 12/16/24
Review of Systems
-
History Source: Patient
Constitutional: Reports No Symptoms
EENT: Reports No Symptoms
Respiratory: Reports Trouble Breathing; Denies Cough
Cardiac: Denies Chest Pain, Diaphoresis or Palpitations
Abdomen/GI: Reports No Symptoms
: Reports No Symptoms
Musculoskeletal: Reports No Symptoms
Skin: Reports No Symptoms
Neurological: Reports No Symptoms
Endocrine: Reports No Symptoms
Hematologic/Lymphatic: Reports No Symptoms
Psych: Reports No Symptoms
Physical Exam
Vital Signs
Vital Signs
Pulse Resp BP Pulse Ox
93 23 122/65 94
01/31/25 05:05 01/31/25 04:30 01/31/25 05:05 01/31/25 04:28
Physical Exam
General: Respiratory Distress
HEENT: NormoCephalic, Anicteric, Atraumatic, PERRLA and Oxygen
Respiratory: Wheezes, Crackles and Accessory Resp Muscle Use
Cardiac: S1/S2 and Regular Rhythm
Breast: Deferred by me
GI: Soft, Non Tender and Normal Bowel Sounds
Rectal: Deferred by Provider
Genito-urinary: Deferred by me
Musculoskeletal: No Clubbing, No Cyanosis, Edema, Left Lower Extremity (trace) and Edema, Right Lower Extremity (trace)
Skin: Warm
Neuro: Alert, Oriented (x 2, person and place) and Nonfocal/grossly intact; No Facial Droop
Hematologic/Lymphatic: No Lymphadenopathy
Laboratory Results
-
01/31/25 04:41
Laboratory Results
PT 16.5 Sec (11.4-14.6) H 01/31/25 04:41
INR 1.28 01/31/25 04:41
APTT 32.7 Sec (23.4-35.0) 01/31/25 04:41
Data Reviewed
-
Medical Tests (Nuc Med, Echo, EKG etc): Image Personally Visualized and interpreted
Lab Data: Labs Reviewed by me
Old Records: Reviewed
Impression/Plan
-
IMPRESSION:
84 y.o w/ h/o afib on eliquis, prior CVA, diastolic CHF with EF 50-55% and stage III dysfunction on Echo in november presents with hypoxic respiratory failure. On exam she has expiratory ronchi and wheezes and inspiratory crackles. Picture c/w
cardiac wheeze and pulmonary edema. Cannot rule out aspiration given degree of obstructive pattern and h/o mild dysphagia. She sounds quite congested and unable to expectorate her tracheal secretions. Initially noted to have a POLST stating
comfort measures only, however after speaking to family (daughters) goals of care go beyond comfort measures. She is DNR and wants to avoid any invasive procedure with comfort as a main part of her goal.
PLAN:
1. Hypoxic respiratory failure - As labs are returning, we find new increases in BNP, acute hypoxia, crackles, elevated neck veins suggestion is for acute CHF which will be new onset. Troponin is markedly elevated to 0.17 Xray is also c/w pulm
edema but cannot rule out multifocal infiltrates. Given poor history and now negative procalcitonin, concern if for acute CHF possible 2/2 acute ischemia.
- admit to IMU at this time
- treat empirically for chf with lasix 40mg iv q 12 for now
- echo
- not a candidate for PCI or valve replacement so medical management only for now
- f/u Xray, check COVID, influenza, procalcitonin
- Will also start empiric zosyn to cover aspiration for now, d/c if afebrile and final read on xray rules out aspiration
- blood cultures if febrile
- suction prn
- wean to high flow oxygen as tolerated and wean from there
- nebs stat then RTC q 6 and prn
- npo for now except meds pending swallow eval (was on mechanical soft, regular liquids)
2. NSTEMI - presumed NSTEMI, paced rhythm on ECG and new onset CHF. Possible NIMI with acute hypoxia/aspiration but less likely based on current findings
- start heparin gtt
- asa 324 x 1
- echo as above
- cardiology consultation
- consider palliative and or hospice consult after discussing with family
3. AFIB
- heparin for ACS above, hold apixaban
- continue verapamil
DVT PPX - on heparin
Code status - DNR
[2025-01-31 05:55] LABS: TSH 1.81 uIU/ml (0.47-4.68)
[2025-01-31 06:12] LABS: COVID-19 Antigen Negative (Negative)
[2025-01-31 06:23] LABS: Blood Urea Nitrogen 23 mg/dl (7-17); Calcium 9.3 mg/dl (8.4-10.2); Carbon Dioxide 25 mmol/L (22-30); Chloride 110 mmol/L (98-107); Glucose 105 mg/dl (70-99); Potassium 4.4 mmol/L (3.5-5.1); Sodium 143 mmol/L (135-145); eGFR > 60.00
[2025-01-31] MEDS: VENTOLIN NEBULES 2.5 MG INH ×2 (06:36)
[2025-01-31] MEDS: FLUSH (NSS) 1 FLUSH IV (06:36)
[2025-01-31 06:43] LABS: Troponin I 0.172 ng/ml
[2025-01-31 06:45] LABS: Procalcitonin < 0.05 ng/ml (0.0-0.25)
[2025-01-31] MEDS: LOW STRENGTH ASPIRIN 324 MG PO (07:06)
[2025-01-31] MEDS: ZOSYN 50 IV ×3 (07:09→19:13)
[2025-01-31] MEDS: HEPARIN 25000 UNITS/250 ML IV (07:12)
[2025-01-31] MEDS: DUONEB 3 ML INH ×2 (09:59→15:14)
[2025-01-31] MEDS: FEOSOL 325 MG PO (09:59)
[2025-01-31] MEDS: NEURONTIN 300 MG PO ×3 (09:59→21:16)
--- NOTE | 2025-01-31 11:01 | EDRN ---
Repeat troponin critical value 2.48. Was 0.172 at 0545. On 6L NC with sats 96-98%. VS stable. Comfortable except for a complaint of ' back pain' which is also a chronic condition. Provider updated via TT
[2025-01-31] MEDS: DURAGESIC 12 MCG/HR PATCH 1 PATCH TRANSDERM (11:08)
[2025-01-31] MEDS: CALAN EXTENDED RELEASE 180 MG PO (11:10)
[2025-01-31] MEDS: DUONEB INH ×2 (11:28→21:12)
[2025-01-31] MEDS: TYLENOL 650 MG PO ×2 (11:52→21:15)
[2025-01-31 13:41] LABS: APTT 58.7 Sec (23.4-35.0)
--- NOTE | 2025-01-31 14:07 | CON.CAR ---
Addendum entered and electronically signed by Garett Martin MD 01/31/25 16:57:
I saw and examined the patient.
The Security Solutions Architect's note was reviewed and I agree with the note.
Comment: Briefly, 84-year-old woman past medical history of permanent atrial fibrillation/flutter, permanent pacemaker and prior CVA who presents with shortness of breath and hypoxia concerning for acute decompensated heart failure. Initial proBNP
was elevated to 8000 and chest x-ray suggestive of pulmonary edema and pleural effusions. In addition troponin was noted to be elevated and rising and is now up to 6.48. Patient was previously comfort care based on chart review but decision was
made to reverse this.
Despite the above patient had no complaints at the time of my evaluation
In regards to heart failure would continue IV diuresis
Wean oxygen as able
Follow daily weights, renal function and electrolytes
Recent echo 12/17/2024 with normal LVEF 50 to 55% and moderate MR
Troponin continues to rise consistent with NSTEMI
Not reporting any chest discomfort to me
Plan for medical management; would avoid invasive procedures if possible given prior goals of care
Currently on heparin drip
Given full dose aspirin today and would continue 81 mg daily
Start high intensity statin
Blood pressure is marginal, would hold off on beta-lg at this time
Rest per Louise Sosa
Original Note:
Consultation
Consultation Request
Date/Time Consultation Requested: 01/31/2025
Date/Time Consultation Performed: 01/31/2025
Requesting Provider: Dr. Martinez
Performing Provider: Louise Sosa PA-C for Dr. Martin
Reason for Consultation: CHF, elevated troponin
Medical History
-
History of Present Illness:
HPI: Kristi is an 84 year old female with PMH of PPM placement, permanent afib/flutter, orthostasis, HTN, HLD, hypothyroidism, CVA, and prior ETOH use disorder. She was recently admitted 11/2024 with urosepsis and bacteremia due to calculus at R
ureteropelvic junction. During this admission had elevated troponin and was evaluated by cardiology. Plan was for medical management. She then had what sounds like sudden onset respiratory distress/hypoxia yesterday evening and EMS was called. She
was hypoxic when EMS arrived and was placed on nonrebreather. On arrival to [facility] ER, attempted to place her on BiPAP, however did not tolerate this. Workup in ER concerning for acute heart failure with elevated proBNP and pulmonary edema
on CXR. She was started on IV lasix as well as IV antibiotics for possible pneumonia. Troponin again noted to be elevated and placed on heparin. 324mg of aspirin given in ER. Patient is not able to contribute much to history due to underlying
dementia. She denies any chest pain currently and nursing notes breathing has been improving, with O2 down to 6L.
PMH:
Recent admission 11/2024 w/ urosepsis with bacteremia
Medtronic DC PPM, placed in 2012, generator change 07/12/24
PPM dependent
Permanent A-fib/typical flutter
Chronic Eliquis OAC
h/o orthostatic hypotension
HTN
Hyperlipidemia
Hypothyroidism
History of CVA
Remote history of EtOH use disorder
Past Medical History
Past Medical History: Other (in HPI)
Past Surgical History: Cardiac (Medtronic PPM) and Gynecological (hysterectomy)
Social History
Tobacco: Non-Smoker
Alcohol: None
Drug: None
Living: Shelter ([facility])
Family History
Family History: Other (CVA)
Allergies / Home Medications
Allergy/AdvReac Type Severity Reaction Status Date / Time
lisinopril Allergy angioedema Verified 01/31/25 04:27
�Medication �Instructions �Recorded �Confirmed �Type
levothyroxine 50 mcg tablet 50 mcg PO DAILY Thyroid 11/06/15 01/31/25 History
apixaban 2.5 mg tablet (Eliquis) 2.5 mg PO BID Blood Clot 07/12/24 01/31/25 History
Prevention/Tx
ascorbic acid (vitamin C) 500 mg 500 mg PO BID Supplement 07/12/24 01/31/25 History
tablet
famotidine 20 mg tablet 20 mg PO HS Gastrointestinal Issue 07/12/24 01/31/25 History
fentanyl 12 mcg/hr transdermal 1 patch transdermal Q72H Pain 07/12/24 01/31/25 History
patch
ferrous sulfate 325 mg (65 mg 325 mg PO DAILY Supplement 07/12/24 01/31/25 History
iron) tablet
mirabegron 50 mg tablet,extended 50 mg PO DAILY Urinary Issue 07/12/24 01/31/25 History
release 24 hr (Myrbetriq)
bisacodyl 10 mg rectal suppository 10 mg WA DAILYPRN PRN if mom is 12/16/24 01/31/25 History
(Dulcolax (bisacodyl)) ineffective
docusate sodium 100 mg capsule 100 mg PO DAILYPRN PRN constipation 12/16/24 01/31/25 History
magnesium hydroxide 400 mg/5 mL 2,400 mg PO HSPRN PRN constipation 12/16/24 01/31/25 History
oral suspension (Milk of Magnesia)
phenylephrine 0.25 %-pramoxine 1 1 applic WA BIDPRN PRN hemmorriods 12/16/24 01/31/25 History
%-glycerin-wh.petrolatum rectal
cream (Preparation H Maximum
Strength)
acetaminophen 325 mg tablet 650 mg PO HS 01/17/25 01/31/25 History
acetaminophen 325 mg tablet 650 mg PO Q4HPRN PRN mild 01/31/25 01/31/25 History
pain/fever>100.4
gabapentin 300 mg capsule 300 mg PO TID 01/31/25 01/31/25 History
lidocaine 4 % topical patch 2 patch topical DAILYPRN PRN lower 01/31/25 01/31/25 History
back pain
verapamil 180 mg tablet,extended 180 mg PO DAILY 01/31/25 01/31/25 History
release
Review of Systems
-
Unable to obtain full review of systems at this time due to: Dementia
All other systems: Negative unless noted
Physical Exam
Vital Signs
Temp Pulse Resp BP Pulse Ox
98.8 F 72 32 108/66 99
01/31/25 11:40 01/31/25 11:12 01/31/25 11:12 01/31/25 11:12 01/31/25 10:18
Lab Results
01/31/25 04:41
01/31/25 05:48
Troponin I 2.480 ng/ml H* D 01/31/25 10:22
Ykk-T-Saebqfbhlbh Pept 8410 pg/ml 01/31/25 04:41
Physical Exam
General: No Apparent Distress
HEENT: Normocephalic and Anicteric
Respiratory: Crackles
Cardiac: S1/S2, Regular Rhythm and Murmur
Musculoskeletal: No Clubbing, No Cyanosis and Edema
Skin: Warm and Dry
Neuro: Awake and Alert
Psych: Calm
Impression / Plan
-
PCP: Dr. Bari Lipscomb
Cardiology: Dr. CATHLEEN Chaudhary
EP: Dr. Umanzor
Impression:
Presented with hypoxia
Acute HFpEF
Elevated troponin
Recent admission 11/2024 w/ urosepsis with bacteremia
Medtronic DC PPM, placed in 2012, generator change 07/12/24
PPM dependent
Permanent A-fib/typical flutter
Chronic Eliquis OAC
h/o orthostatic hypotension
HTN
Hyperlipidemia
Hypothyroidism
History of CVA
Remote history of EtOH use disorder
Echo 11/06/2015: EF 55%, no significant valve disease
Echo 12/17/2024: EF 50-55%, no RWMA, stage III diastolic dysfunction, moderate MR, mild AR, mild TR, mild TR, estimated PAP 35-40 mmHg
Plan:
-Presented with respiratory distress/hypoxia. Admitted with acute HFpEF and elevated troponin. ProBNP elevated at 8410.
-Continue IV lasix 40mg BID. Respiratory status improving. On nonrebreather on arrival to ER, now down to 6L NC.
-Weight 119 lbs by stretcher scale. Follow daily weights, I&Os.
-Creat stable at 0.6. Follow w/ diuresis. Not on diuretic prior to admission.
-Elevated troponin noted, up to 2.48. Continue to trend to peak. Spoke w/ MANAGER ASSET MANAGEMENT who notes daughter was in earlier and plan is for medical management at this time. No invasive procedures.
-Echo 11/2024 noted preserved EF with moderate MR.
-Continue heparin gtt for now.
-324mg of aspirin given in ER this AM.
-Known h/o permanent atrial fibrillation. HR stable, V paced on EKG. On Eliquis as OP, currently on heparin as noted above.
-Will continue conservative management for now.
-Abx per primary service.
-Agree w/ palliative care/hospice consult.
HPI: Kristi is an 84 year old female with PMH of PPM placement, permanent afib/flutter, orthostasis, HTN, HLD, hypothyroidism, CVA, and prior ETOH use disorder. She was recently admitted 11/2024 with urosepsis and bacteremia due to calculus at R
ureteropelvic junction. During this admission had elevated troponin and was evaluated by cardiology. Plan was for medical management. She then had what sounds like sudden onset respiratory distress/hypoxia yesterday evening and EMS was called. She
was hypoxic when EMS arrived and was placed on nonrebreather. On arrival to [facility] ER, attempted to place her on BiPAP, however did not tolerate this. Workup in ER concerning for acute heart failure with elevated proBNP and pulmonary edema
on CXR. She was started on IV lasix as well as IV antibiotics for possible pneumonia. Troponin again noted to be elevated and placed on heparin. 324mg of aspirin given in ER. Patient is not able to contribute much to history due to underlying
dementia. She denies any chest pain currently and nursing notes breathing has been improving, with O2 down to 6L.
Data Reviewed
-
EKG: Tracing Personally Visualized and interpreted
Radiology: Report Reviewed by me
Labs: Labs Reviewed by me
Old Records: Reviewed
--- NOTE | 2025-01-31 14:33 | W.PN.HOSP.TC ---
Today's Communication/Plan
-
Assessment / Plan
Assessment / Plan
General: Chronically ill-appearing, no acute distress
HEENT: NormoCephalic, left eye ptosis, nasal cannula in place
Respiratory: Mild scattered rales, Non Labored Respirations
Cardiac: S1/S2 and Regular Rhythm; No Rub or Gallop
GI: Soft, Non Tender, Non Distended and Normal Bowel Sounds
Musculoskeletal: No Edema, no deformity
Skin: Warm and dry
: NO Bean
Neuro: Awake, Alert, confused
Psych: Calm and cooperative
Ms. Lee is a 84-year-old female with a medical history of A-fib/flutter (on low-dose Eliquis, pacemaker in place), hypertension, CVA, hypothyroidism, and dementia who presented with shortness of breath and hypoxia. She was recently admitted in
November 2024 for treatment of sepsis secondary to UTI with bacteremia due to right ureteral calculus. At time of this admission she was significantly hypoxic with increased work of breathing. She was receiving oxygen via nonrebreather by EMS upon
arrival. She was unable to tolerate BiPAP in the ED. Labs revealed elevated BNP and troponin. Chest x-ray consistent with pulmonary edema and possible left basilar pneumonia. She was loaded with full-strength aspirin and started on IV heparin
drip. She was also started on IV diuretic and antibiotics. Of note, during previous admission in November she was also evaluated by cardiology for troponin elevation and plan was for medical management alone as she is a very poor candidate for any
invasive procedures. This is also in line with patient and family's goals of care. She has been admitted for further evaluation and management of acute respiratory failure with hypoxia suspected due to acute heart failure and possible pneumonia.
Acute respiratory failure with hypoxia:
- Possibly due to acute HFpEF and pneumonia
- Initially requiring nonrebreather mask, now breathing comfortably and saturating appropriately on 6 L via nasal cannula, will titrate as able
- Continue IV diuresis and antibiotics
- Follow-up cultures
- Will attempt to continue improving respiratory status, family open to discussing transition to hospice care if nothing else is able to be done and do not want any aggressive measures
Acute HFpEF:
- Echo in November 2024 showed preserved ejection fraction moderate mitral regurgitation
- Continue IV diuresis for now
- Monitor daily weights and I's and O's
NSTEMI:
- No plan for invasive procedures per patient and family goals of care, would be a poor candidate for invasive procedures anyway
- Continue IV heparin drip for now
- Appreciate cardiology guidance
CODE STATUS: DNR
Anticipated Discharge: 24 - 48 hours
Subjective/Interval History
-
Date of Service: January 31, 2025
Patient was seen and examined at bedside this morning. Daughter also present. Patient was relatively comfortable although did complain of some left arm discomfort. Her oxygen requirements have dramatically improved since admission. She is now
saturating appropriately on 6 L via nasal cannula.
Objective Data
-
Labs:
Laboratory Results
01/31/25 01/31/25 01/31/25
04:41 05:48 06:49
WBC 10.8
Hgb 9.7 L
Hct 30.8 L
Plt Count 207
PT 16.5 H
INR 1.28
APTT 32.7 Cancelled
Sodium 143
Potassium 4.4
Chloride 110 H
Carbon Dioxide 25
BUN 23 H
Creatinine 0.6
Glucose 105 H
Calcium 9.3
01/31/25 01/31/25
13:18 20:15
WBC
Hgb
Hct
Plt Count
PT
INR
APTT 58.7 H Pending
Sodium
Potassium
Chloride
Carbon Dioxide
BUN
Creatinine
Glucose
Calcium
Vital Signs:
Vital Signs
Temp Pulse Resp BP Pulse Ox
98.8 F 60 13 108/66 99
01/31/25 11:40 01/31/25 14:00 01/31/25 14:00 01/31/25 11:12 01/31/25 10:18
Review of Systems
-
History Source: Patient
All other systems: Reviewed and negative
Musculoskeletal: Reports Muscle Pain (Left arm discomfort)
Physical Exam
-
General: Appears Chronically Ill
--- NOTE | 2025-01-31 15:46 | EDRN ---
this RN noticed that the pts blood pressure was low at 90/47 (61), and notified Dr. Telles, per the provider midodrine will be ordered for the pt and this RN will reassess, this RN also asked the provider if they still wanted the pt to be Tele
or if they wanted the pt to be IMU, per the provider this RN will reassess blood pressure after midodrine and the provider will decide the level of care
[2025-01-31] MEDS: ProAmatine 5 MG PO (15:57)
[2025-01-31] MEDS: NSS 250 IV (15:57)
--- NOTE | 2025-01-31 16:01 | EDRN ---
cardiology currently at the pts bedside speaking with the pt, per Dr. Telles midodrine was administered and the pt was able to take PO medication with water with no issues, per the provider 250cc Bolus of NSS was administered
--- NOTE | 2025-01-31 16:30 | EDRN ---
this RN notified Dr. Telles that the pts Troponin is trending up
[2025-01-31] MEDS: CRESTOR 20 MG PO (19:14)
--- NOTE | 2025-01-31 19:28 | EDRN ---
this RN called the receiving IMU nurse and gave verbal report
[2025-01-31 20:39] LABS: APTT 128.9 Sec (23.4-35.0)
[2025-01-31] MEDS: PEPCID 20 MG PO (21:16)
--- NOTE | 2025-01-31 23:56 | PTCARENOTE ---
received verbal report from ED nurse. Patient transferred via stretcher without issue. Patient on 6L NC sating in 90s. heparin gtt running at 750ml/hr. assessment and vital signs as documented. patient refused neb treatments. patient resting in bed
with call dao in reach.
[2025-02-01] VITALS (13 sets, daily range): BP systolic 84–165; BP diastolic 51–81; BMI 19.6
[2025-02-01] MEDS: ZOSYN 50 IV ×4 (00:08→20:12)
[2025-02-01 03:37] LABS: Hematocrit 26.5 % (37.0-47.0); Hemoglobin 8.5 g/dL (12.0-16.0); Mean Corp Hgb Conc. 32.1 g/dL (33.0-37.0); Mean Corpuscular Hgb 29.3 pg (27.0-31.0); Mean Corpuscular Volume 91.4 fL (81.0-99.0); Mean Platelet Volume 10.4 fL (7.4-10.4); Platelet Count 162 10^3/uL (130-400); Red Cell Dist. Width 14.7 % (11.5-14.5); White Blood Cell Count 7.6 10^3/uL (4.8-10.8)
[2025-02-01 03:47] LABS: APTT 112.8 Sec (23.4-35.0)
[2025-02-01 04:28] LABS: Blood Urea Nitrogen 26 mg/dl (7-17); Calcium 8.9 mg/dl (8.4-10.2); Carbon Dioxide 25 mmol/L (22-30); Chloride 110 mmol/L (98-107); Estimated Creatinine Clearance 45 ml/min; Glucose 89 mg/dl (70-99); Phosphorus 3.4 mg/dl (2.5-4.5); Sodium 140 mmol/L (135-145); eGFR > 60.00
[2025-02-01] MEDS: SYNTHROID PO (05:39)
[2025-02-01] MEDS: DUONEB 3 ML INH ×3 (07:48→15:33)
[2025-02-01] MEDS: NEURONTIN 300 MG PO ×3 (08:29→22:03)
[2025-02-01] MEDS: MYRBETRIQ EXTENDED RELEASE 50 MG PO (08:29)
[2025-02-01] MEDS: FEOSOL 325 MG PO (08:29)
[2025-02-01] MEDS: LOW STRENGTH ASPIRIN 81 MG PO (08:30)
--- NOTE | 2025-02-01 11:17 | CM ---
Patient seen at bedside.
RADHA completed-spoke with daughter Ismael MERLIN for other daughter Isabella [phone]
Patient is a alf care resident at [facility]
Dx: hypoxia, resp failure
Hx dementia, CVA, Blind L eye
On oxygen 2L currently
Referral placed in [facility] for [facility]
Pharmacy: [facility]
PLAN: Return to [facility] when medically stable, CM to continue to follow
--- NOTE | 2025-02-01 11:22 | W.PN.CARDCBS ---
Addendum entered and electronically signed by Toni Danielle MD 02/01/25 11:55:
Patient seen, interviewed and examined by me.
Elderly, cachectic, poorly responsive but arousable.
Regular rate and rhythm with normal S1 and S2, no S3 no S4. 11/28 AHSM
Lungs poor BS b/l, poor isnp effort
Agree with advanced practice professionals assessment and plan as noted below.
She had been comfort care previously and at this point it is unclear. As to the family's wishes regarding goal of care.
Conservative management of non-ST segment elevation myocardial infarction/troponin elevation.
Continue IV Lasix for now
Original Note:
Today's Communication / Plan
-
continue IV lasix
conservative mgmt of NSTEMI/elevated troponin per discussions with family
palliative care/hospice consult appears appropriate
Impression / Plan
-
PCP: Dr. Bari Lipscomb
Cardiology: Dr. CATHLEEN Chaudhary
EP: Dr. Umanzor
Impression:
Presented with hypoxia
Acute HFpEF
NSTEMI
Recent admission 11/2024 w/ urosepsis with bacteremia
Medtronic DC PPM, placed in 2012, generator change 07/12/24
PPM dependent
Permanent A-fib/typical flutter
Chronic Eliquis OAC
h/o orthostatic hypotension
HTN
Hyperlipidemia
Hypothyroidism
History of CVA
Remote history of EtOH use disorder
Echo 11/06/2015: EF 55%, no significant valve disease
Echo 12/17/2024: EF 50-55%, no RWMA, stage III diastolic dysfunction, moderate MR, mild AR, mild TR, mild TR, estimated PAP 35-40 mmHg
Plan:
- Presented with respiratory distress. Admitted with new acute heart failure as well as elevated troponin with peak of 6.4. Plan per daughter 01/31 was for medical management with no invasive procedures. Patient is DNR
- She had recent admission 11/2024 during which time she had elevated troponin peak of 1.6, and plan was for medical management given comorbidities and echo with preserved EF
- Continue IV Lasix diuresis. Continue to wean supplemental oxygen as able. She was not on diuretic prior to admission
- Echo 11/2024 noted preserved EF with moderate MR, consider follow up for reassessment of EF
- Continue IV heparin, asa. holding OP eliquis
- continue crestor
- Known h/o permanent atrial fibrillation. HR stable, vpaced rhythm on EKG.
- palliative care/hospice consult appears appropriate.
- d/w CM
HPI: Kristi is an 84 year old female with PMH of PPM placement, permanent afib/flutter, orthostasis, HTN, HLD, hypothyroidism, CVA, and prior ETOH use disorder. She was recently admitted 11/2024 with urosepsis and bacteremia due to calculus at R
ureteropelvic junction. During this admission had elevated troponin and was evaluated by cardiology. Plan was for medical management. She then had what sounds like sudden onset respiratory distress/hypoxia yesterday evening and EMS was called. She
was hypoxic when EMS arrived and was placed on nonrebreather. On arrival to [facility] ER, attempted to place her on BiPAP, however did not tolerate this. Workup in ER concerning for acute heart failure with elevated proBNP and pulmonary edema
on CXR. She was started on IV lasix as well as IV antibiotics for possible pneumonia. Troponin again noted to be elevated and placed on heparin. 324mg of aspirin given in ER. Patient is not able to contribute much to history due to underlying
dementia. She denies any chest pain currently and nursing notes breathing has been improving, with O2 down to 6L.
Progress Note - Human Services Program Specialist
Subjective
Date of Service: February 01, 2025
No chest pain or shortness of breath
Objective
Labs:
02/01/25 03:14
02/01/25 03:14
Labs
Hgb 8.5 g/dL (12.0-16.0) L 02/01/25 03:14
Hct 26.5 % (37.0-47.0) L 02/01/25 03:14
Plt Count 162 10^3/uL (130-400) D 02/01/25 03:14
PT 16.5 Sec (11.4-14.6) H 01/31/25 04:41
INR 1.28 01/31/25 04:41
APTT 67.0 Sec (23.4-35.0) H 02/01/25 10:09
Sodium 140 mmol/L (135-145) 02/01/25 03:14
Potassium 4.0 mmol/L (3.5-5.1) 02/01/25 03:14
BUN 26 mg/dl (7-17) H 02/01/25 03:14
Creatinine 0.7 mg/dL (0.6-1.0) 02/01/25 03:14
Glucose 89 mg/dl (70-99) 02/01/25 03:14
Troponins
01/31/25 01/31/25 01/31/25
05:48 10:22 15:54
Troponin I 0.172 H* 2.480 H* D 6.480 H* D
01/31/25
22:05
Troponin I 4.770 H* D
Vital Signs and I&O:
Vital Signs
Temp Pulse Resp BP Pulse Ox
97.6 F 60 14 94/53 93
02/01/25 07:05 02/01/25 07:48 02/01/25 07:48 02/01/25 04:00 02/01/25 09:35
Vital Signs
Temp Pulse Resp BP Pulse Ox
97.6 F 60 14 94/53 93
02/01/25 07:05 02/01/25 07:48 02/01/25 07:48 02/01/25 04:00 02/01/25 09:35
Intake & Output
01/30/25 01/31/25 02/01/25 02/02/25
07:59 07:59 07:59 07:59
Intake Total 0 / 0
Output Total 0 / 0
Balance 0 / 0
Physical Exam
Physical Exam
GEN: No distress, awake, alert. frail, cachectic
HEENT: supple, anicteric, mmm
LUNGS: Crackles B/L bases, no wheezes
CV: Reg, S1/S2, 1/6 murmur
ABD: soft, BS+, NT/ND
EXT: No cyanosis, clubbing. trace edema of B/L LE
NEURO: Gross non-focal
SKIN: Warm, pink, dry. No rash
--- NOTE | 2025-02-01 12:20 | W.PN.HOSP.TC ---
Today's Communication/Plan
-
Assessment / Plan
Assessment / Plan
General: Chronically ill-appearing, no acute distress
HEENT: NormoCephalic, left eye ptosis, nasal cannula in place
Respiratory: Mild scattered rales, Non Labored Respirations
Cardiac: S1/S2 and Regular Rhythm; No Rub or Gallop
GI: Soft, Non Tender, Non Distended and Normal Bowel Sounds
Musculoskeletal: No Edema, no deformity
Skin: Warm and dry
: NO Bean
Neuro: Awake, Alert, confused
Psych: Calm and cooperative
Ms. Lee is a 84-year-old female with a medical history of A-fib/flutter (on low-dose Eliquis, pacemaker in place), hypertension, CVA, hypothyroidism, and dementia who presented with shortness of breath and hypoxia. She was recently admitted in
November 2024 for treatment of sepsis secondary to UTI with bacteremia due to right ureteral calculus. At time of this admission she was significantly hypoxic with increased work of breathing. She was receiving oxygen via nonrebreather by EMS upon
arrival. She was unable to tolerate BiPAP in the ED. Labs revealed elevated BNP and troponin. Chest x-ray consistent with pulmonary edema and possible left basilar pneumonia. She was loaded with full-strength aspirin and started on IV heparin
drip. She was also started on IV diuretic and antibiotics. Of note, during previous admission in November she was also evaluated by cardiology for troponin elevation and plan was for medical management alone as she is a very poor candidate for any
invasive procedures. This is also in line with patient and family's goals of care. She has been admitted for further evaluation and management of acute respiratory failure with hypoxia suspected due to acute heart failure and possible pneumonia.
Acute respiratory failure with hypoxia:
- Possibly due to acute HFpEF or aspiration pneumonia
- Initially requiring nonrebreather mask, now breathing comfortably and saturating appropriately on 2 L via nasal cannula, will titrate as able
- No longer diuresing
-Continuing antibiotics, follow-up cultures
-Currently n.p.o. except medications pending ASSURANCE MANAGER evaluation
- Discussed patient's status with daughter Ismael this morning, recommended transition to hospice care, family open to hospice care and will discuss prior to making any decisions, they do not want any aggressive measures or recurrent hospitalizations
Acute HFpEF:
- Echo in November 2024 showed preserved ejection fraction moderate mitral regurgitation
- Appears close to euvolemic at this point
- Holding further diuresis due to hypotension
- Monitor daily weights and I's and O's
NSTEMI:
- No plan for invasive procedures per patient and family goals of care, would be a poor candidate for invasive procedures anyway
- Continue IV heparin drip for now
- Low-dose aspirin and statin
- Appreciate cardiology guidance
- Family considering hospice care
Hypotension:
- Improved with scheduled midodrine, will continue
CODE STATUS: DNR
Anticipated Discharge: 24 - 48 hours
Subjective/Interval History
-
Date of Service: February 01, 2025
Patient was seen and examined at bedside this morning. Blood pressure has improved with scheduled midodrine. She remains comfortable and saturating appropriately on 2 L via nasal cannula.
Objective Data
-
Labs:
Laboratory Results
02/01/25 02/01/25 02/01/25
03:14 10:09 16:55
WBC 7.6
Hgb 8.5 L
Hct 26.5 L
Plt Count 162 D
APTT 112.8 H 67.0 H Pending
Sodium 140
Potassium 4.0
Chloride 110 H
Carbon Dioxide 25
BUN 26 H
Creatinine 0.7
Glucose 89
Calcium 8.9
Vital Signs:
Vital Signs
Temp Pulse Resp BP Pulse Ox
97.6 F 62 14 94/53 96
02/01/25 07:05 02/01/25 11:45 02/01/25 11:45 02/01/25 04:00 02/01/25 11:45
I&O
01/31/25 02/01/25 02/02/25
06:59 06:59 06:59
Intake Total 0 / 0
Output Total 0 / 0
Balance 0 / 0
Review of Systems
-
History Source: Patient
All other systems: Reviewed and negative
Physical Exam
-
General: No Apparent Distress
--- NOTE | 2025-02-01 12:22 | PTCARENOTE ---
Addendum entered by Willie Carvajal RN 02/01/25 17:42:
Patients right AC IV site bleeding, IV removed. Once removed site had profuse bleeding requiring manual pressure followed by pressure dressing. PTT drawn early. MD notified. Will closely monitor.
Original Note:
Patient AAOx1-2, drowsy, confused. LUE fentanyl patch intact. Weaned patient to RA with sats of 95% but patient coughed with breakfast and desatted to 86% so 2L NC placed back on patient now with sats 95%. CERTIFIED ENDOSCOPY TECHNICIAN consult placed and NPO ordered for this
reason. Updated daughter, Isabella, at bedside. Updated other daughter, Imsael, by phone who gave permission for Isabella to be on chart for contact with healthcare team. VSS, BPs soft. Bed alarm on for safety. Will closely monitor.
--- NOTE | 2025-02-01 13:18 | PTOTSP ---
Speech therapy
Presentation: Patient was oriented to self. Patient followed commands with verbal stimuli and demonstration. Patient's speech was short in length and appeared weak in volume.
Swallowing Complaints: Per RN, patient had coughing with thin liquids and medication AND coughing with meal tray that resulted in her destating and requiring O2 via nasal cavity.
Swallowing Function: Patient was observed with ice chips, thin via tsp, mildly thick via tsp, and puree via tsp in which patient demonstrated immediate weak coughing with ice chips and thin liquid presentations. Patient appeared to tolerate mildly
thick liquids via tsp and puree via tsp as she did not exhibit any additional overt clinical s/sx of aspiration.
Recommendations:
1) Trial of IDDSI 4 puree and mildly thick liquids via tsp
2) Small, single bites and sips
3) Assistance and supervision with PO
4) PO only when alert
5) PO only when SpO2 >90% and RR< 30
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
[2025-02-01] MEDS: ProAmatine 5 MG PO ×2 (16:44→22:04)
[2025-02-01] MEDS: CRESTOR 20 MG PO (17:02)
[2025-02-01 17:35] LABS: APTT 81.2 Sec (23.4-35.0)
[2025-02-01] MEDS: HEPARIN 25000 UNITS/250 ML IV (19:16)
[2025-02-01] MEDS: DUONEB INH (19:56)
[2025-02-01] MEDS: LOTRIMIN 1% CREAM 1 APPLIC TOPICAL (20:12)
[2025-02-01] MEDS: PEPCID 20 MG PO (22:03)
[2025-02-01] MEDS: TYLENOL 650 MG PO (22:03)
[2025-02-02] VITALS (9 sets, daily range): BP systolic 120–156; BP diastolic 63–110; BMI 19.9
[2025-02-02 00:49] LABS: APTT 112.8 Sec (23.4-35.0)
[2025-02-02] MEDS: ZOSYN 50 IV ×2 (02:22→09:25)
[2025-02-02] MEDS: SYNTHROID 50 MCG PO (06:02)
[2025-02-02 06:46] LABS: Hematocrit 25.4 % (37.0-47.0); Hemoglobin 8.5 g/dL (12.0-16.0); Mean Corp Hgb Conc. 33.5 g/dL (33.0-37.0); Mean Corpuscular Hgb 29.5 pg (27.0-31.0); Mean Corpuscular Volume 88.2 fL (81.0-99.0); Mean Platelet Volume 10.6 fL (7.4-10.4); Platelet Count 180 10^3/uL (130-400); Red Blood Cell Count 2.88 10^6/uL (4.20-5.40); Red Cell Dist. Width 14.8 % (11.5-14.5); White Blood Cell Count 6.3 10^3/uL (4.8-10.8)
[2025-02-02 06:54] LABS: APTT 59.9 Sec (23.4-35.0)
[2025-02-02 07:18] LABS: Blood Urea Nitrogen 23 mg/dl (7-17); Carbon Dioxide 21 mmol/L (22-30); Chloride 110 mmol/L (98-107); Estimated Creatinine Clearance 46 ml/min; Glucose 96 mg/dl (70-99); Sodium 140 mmol/L (135-145); eGFR > 60.00
[2025-02-02] MEDS: DUONEB INH ×2 (07:53→08:04)
[2025-02-02] MEDS: MYRBETRIQ EXTENDED RELEASE 50 MG PO (09:11)
[2025-02-02] MEDS: NEURONTIN 300 MG PO ×3 (09:11→20:31)
[2025-02-02] MEDS: LOTRIMIN 1% CREAM 1 APPLIC TOPICAL ×2 (09:11→20:31)
[2025-02-02] MEDS: FEOSOL 325 MG PO (09:11)
[2025-02-02] MEDS: LOW STRENGTH ASPIRIN 81 MG PO (09:12)
[2025-02-02] MEDS: ProAmatine PO (09:21)
--- NOTE | 2025-02-02 13:14 | W.PN.CARDCBS ---
Today's Communication / Plan
-
Lasix 40 mg IV now
Stop IV heparin
Resume Eliquis 2.5 mg twice daily starting with tonight's dose
Impression / Plan
-
PCP: Dr. Bari Lipscomb
Cardiology: Dr. CATHLEEN Chaudhary
EP: Dr. Umanzor
Impression:
Presented with hypoxia
Acute HFpEF
NSTEMI
Recent admission 11/2024 w/ urosepsis with bacteremia
Medtronic DC PPM, placed in 2012, generator change 07/12/24
PPM dependent
Permanent A-fib/typical flutter
Chronic Eliquis OAC
h/o orthostatic hypotension
HTN
Hyperlipidemia
Hypothyroidism
History of CVA
Remote history of EtOH use disorder
Echo 11/06/2015: EF 55%, no significant valve disease
Echo 12/17/2024: EF 50-55%, no RWMA, stage III diastolic dysfunction, moderate MR, mild AR, mild TR, mild TR, estimated PAP 35-40 mmHg
Plan:
Presented with respiratory distress. Admitted with new acute heart failure as well as elevated troponin with peak of 6.4. Plan per daughter 01/31 was for medical management with no invasive procedures. Patient is DNR and has recently been comfort
care. Additionally, she had recent admission 11/2024 during which time she had elevated troponin peak of 1.6, and plan was for medical management given comorbidities and echo with preserved EF
She had been comfort care previously, primary service has discussed with family and they are assessing goals of care
Still volume overloaded by exam today
Will give Lasix 40 mg IV and reassess on a daily basis
Conservative management of non-ST segment elevation myocardial infarction/troponin elevation.
Tropinin peaked at 6.4, next troponin 4.7. No chest pain. ECG is ventricular paced
Stop IV heparin today
She had been on Eliquis as an outpatient, will resume Eliquis at 2.5 mg twice daily starting with tonight's dose
Maintain rosuvastatin 20 mg daily
Known permanent atrial fibrillation. HR stable, vpaced rhythm on EKG (complete heart block, she is pacemaker dependent).
IV heparin has been stopped, resume Eliquis 2.5 mg twice daily starting with tonight's dose as she is at high atrial fibrillation related thromboembolic risk
HPI: Kristi is an 84 year old female with PMH of PPM placement, permanent afib/flutter, orthostasis, HTN, HLD, hypothyroidism, CVA, and prior ETOH use disorder. She was recently admitted 11/2024 with urosepsis and bacteremia due to calculus at R
ureteropelvic junction. During this admission had elevated troponin and was evaluated by cardiology. Plan was for medical management. She then had what sounds like sudden onset respiratory distress/hypoxia yesterday evening and EMS was called. She
was hypoxic when EMS arrived and was placed on nonrebreather. On arrival to [facility] ER, attempted to place her on BiPAP, however did not tolerate this. Workup in ER concerning for acute heart failure with elevated proBNP and pulmonary edema
on CXR. She was started on IV lasix as well as IV antibiotics for possible pneumonia. Troponin again noted to be elevated and placed on heparin. 324mg of aspirin given in ER. Patient is not able to contribute much to history due to underlying
dementia. She denies any chest pain currently and nursing notes breathing has been improving, with O2 down to 6L.
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
Subjective
Date of Service: February 02, 2025
Objective
Labs:
02/02/25 06:34
02/02/25 06:34
Labs
Hgb 8.5 g/dL (12.0-16.0) L 02/02/25 06:34
Hct 25.4 % (37.0-47.0) L 02/02/25 06:34
Plt Count 180 10^3/uL (130-400) 02/02/25 06:34
PT 16.5 Sec (11.4-14.6) H 01/31/25 04:41
INR 1.28 01/31/25 04:41
APTT 59.9 Sec (23.4-35.0) H 02/02/25 06:34
Sodium 140 mmol/L (135-145) 02/02/25 06:34
Potassium 4.0 mmol/L (3.5-5.1) 02/02/25 06:34
BUN 23 mg/dl (7-17) H 02/02/25 06:34
Creatinine 0.7 mg/dL (0.6-1.0) 02/02/25 06:34
Glucose 96 mg/dl (70-99) 02/02/25 06:34
Troponins
01/31/25 01/31/25 01/31/25
05:48 10:22 15:54
Troponin I 0.172 H* 2.480 H* D 6.480 H* D
01/31/25
22:05
Troponin I 4.770 H* D
Vital Signs and I&O:
Vital Signs
Temp Pulse Resp BP Pulse Ox
98.1 F 74 18 144/84 97
02/02/25 12:04 02/02/25 10:05 02/02/25 10:05 02/02/25 10:05 02/02/25 10:23
Vital Signs
Temp Pulse Resp BP Pulse Ox
98.1 F 74 18 144/84 97
02/02/25 12:04 02/02/25 10:05 02/02/25 10:05 02/02/25 10:05 02/02/25 10:23
Intake & Output
01/31/25 02/01/25 02/02/25 02/03/25
06:59 06:59 06:59 06:59
Intake Total 0 / 0
Output Total 0 / 0
Balance 0 / 0
Physical Exam
Physical Exam
Elderly, cachectic, poorly responsive but arousable.
Regular rate and rhythm with normal S1 and S2, no S3 no S4. / AHSM
Lungs poor BS b/l, poor inspiratory effort
--- NOTE | 2025-02-02 13:34 | W.PN.HOSP.TC ---
Today's Communication/Plan
-
Assessment / Plan
Assessment / Plan
General: Chronically ill-appearing, no acute distress
HEENT: NormoCephalic, left eye ptosis, nasal cannula in place
Respiratory: Mild scattered rales, Non Labored Respirations
Cardiac: S1/S2 and Regular Rhythm; No Rub or Gallop
GI: Soft, Non Tender, Non Distended and Normal Bowel Sounds
Musculoskeletal: No Edema, no deformity
Skin: Warm and dry
: NO Bean
Neuro: Awake, Alert, confused
Psych: Calm and cooperative
Ms. Lee is a 84-year-old female with a medical history of A-fib/flutter (on low-dose Eliquis, pacemaker in place), hypertension, CVA, hypothyroidism, and dementia who presented with shortness of breath and hypoxia. She was recently admitted in
November 2024 for treatment of sepsis secondary to UTI with bacteremia due to right ureteral calculus. At time of this admission she was significantly hypoxic with increased work of breathing. She was receiving oxygen via nonrebreather by EMS upon
arrival. She was unable to tolerate BiPAP in the ED. Labs revealed elevated BNP and troponin. Chest x-ray consistent with pulmonary edema and possible left basilar pneumonia. She was loaded with full-strength aspirin and started on IV heparin
drip. She was also started on IV diuretic and antibiotics. Of note, during previous admission in November she was also evaluated by cardiology for troponin elevation and plan was for medical management alone as she is a very poor candidate for any
invasive procedures. This is also in line with patient and family's goals of care. She has been admitted for further evaluation and management of acute respiratory failure with hypoxia suspected due to acute heart failure and possible pneumonia.
Acute respiratory failure with hypoxia:
-Suspect due to aspiration pneumonia
- Initially requiring nonrebreather mask, now breathing comfortably and saturating appropriately on 2 L via nasal cannula, will titrate as able
- No longer diuresing
-Tolerating p.o. diet, appreciate FEATHER MAKER eval
- Discussed patient's status with her daughters Ismael and Isabella, they do not want their mother to be recurrently hospitalized as she has been recently, they are considering a do not hospitalize option versus hospice care arrangements at her long-term
care facility
- Will transition to oral antibiotics in anticipation of discharge back to long-term care facility in the next 24 hours if remains stable, continue with Augmentin to complete a total 5-day course of antibiotics
Acute HFpEF:
- Echo in November 2024 showed preserved ejection fraction moderate mitral regurgitation
- Appears close to euvolemic at this point, holding further diuresis
- Restarting verapamil at reduced dose of 120 mg daily
NSTEMI:
- No plan for invasive procedures per patient and family goals of care, would be a poor candidate for invasive procedures anyway
-Discontinued IV heparin drip after 48 hours
- Low-dose aspirin and statin
- Appreciate cardiology guidance
A-fib:
- Resumed anticoagulation with low-dose Eliquis now that IV heparin has been discontinued
- Continue verapamil at reduced dose of 120 mg daily
Hypotension:
- Improved, will monitor
CODE STATUS: DNR
Anticipated Discharge: 24 - 48 hours
Subjective/Interval History
-
Date of Service: February 02, 2025
Patient was seen and examined at bedside this morning. She was mildly dyspneic and hypoxic when attempting to titrate to room air but quickly recovered with only 2 L via nasal cannula. Her IV heparin drip is being discontinued today after
treatment for 48 hours for NSTEMI. Goals of care discussion ongoing with family who do not want recurrent hospitalizations for similar circumstances of dyspnea with hypoxia. They are considering a do not hospitalize discussion versus hospice care
arrangements back at her long-term care facility.
Objective Data
-
Labs:
Laboratory Results
02/02/25 02/02/25
06:34 14:00
WBC 6.3
Hgb 8.5 L
Hct 25.4 L
Plt Count 180
APTT 59.9 H Pending
Sodium 140
Potassium 4.0
Chloride 110 H
Carbon Dioxide 21 L
BUN 23 H
Creatinine 0.7
Glucose 96
Calcium 9.0
Vital Signs:
Vital Signs
Temp Pulse Resp BP Pulse Ox
98.1 F 74 18 144/84 97
02/02/25 12:04 02/02/25 10:05 02/02/25 10:05 02/02/25 10:05 02/02/25 10:23
I&O
02/01/25 02/02/25 02/03/25
06:59 06:59 06:59
Intake Total 0 / 0
Output Total 0 / 0
Balance 0 / 0
Review of Systems
-
Unable to obtain full review of systems at this time due to: Dementia
History Source: Patient
All other systems: Reviewed and negative
Physical Exam
-
General: No Apparent Distress
[2025-02-02] MEDS: ZOSYN IV (14:17)
[2025-02-02] MEDS: LASIX 40 MG IV (14:20)
[2025-02-02] MEDS: CALAN 120 MG PO ×2 (17:26→20:31)
[2025-02-02] MEDS: CRESTOR 20 MG PO (17:27)
--- NOTE | 2025-02-02 17:53 | PTCARENOTE ---
Rec'd pt this AM. All vital signs stable. remains confused, pulle out iV. Good diuresis after lasix. poor appetite.
[2025-02-02] MEDS: TYLENOL 650 MG PO (20:31)
[2025-02-02] MEDS: AUGMENTIN 500 MG/125 MG 1 TABLET PO (20:31)
[2025-02-02] MEDS: ELIQUIS 2.5 MG PO (20:31)
[2025-02-02] MEDS: PEPCID 20 MG PO (20:31)
[2025-02-03 00:02] VITALS: BP 120/70
[2025-02-03 05:08] VITALS: BMI 18.9
[2025-02-03 05:53] LABS: Blood Urea Nitrogen 21 mg/dl (7-17); Calcium 9.5 mg/dl (8.4-10.2); Carbon Dioxide 22 mmol/L (22-30); Chloride 106 mmol/L (98-107); Estimated Creatinine Clearance 38 ml/min; Glucose 114 mg/dl (70-99); Magnesium 1.7 mg/dl (1.6-2.3); Potassium 3.3 mmol/L (3.5-5.1); Sodium 142 mmol/L (135-145); eGFR > 60.00
[2025-02-03] MEDS: SYNTHROID 50 MCG PO (06:22)
[2025-02-03 07:31] VITALS: BP 144/78
--- NOTE | 2025-02-03 08:30 | PTCARENOTE ---
Patient received from shift supervisor. Patient resting comfortably in bed. AAOx1, mostly to self. VSS, Med/Surg level. No fluids through IV. Patient to have an ECHO done today. Call dao in reach
[2025-02-03] MEDS: NEURONTIN 300 MG PO ×3 (08:49→21:45)
[2025-02-03] MEDS: AUGMENTIN 500 MG/125 MG 1 TABLET PO ×2 (08:49→19:38)
[2025-02-03] MEDS: CALAN 120 MG PO (08:49)
[2025-02-03] MEDS: MYRBETRIQ EXTENDED RELEASE 50 MG PO (08:49)
[2025-02-03] MEDS: ELIQUIS 2.5 MG PO ×2 (08:49→19:37)
[2025-02-03] MEDS: LOW STRENGTH ASPIRIN 81 MG PO (08:49)
[2025-02-03] MEDS: FEOSOL 325 MG PO (08:50)
[2025-02-03] MEDS: LOTRIMIN 1% CREAM 1 APPLIC TOPICAL ×2 (08:50→19:38)
--- NOTE | 2025-02-03 09:44 | W.PN.HOSP.TC ---
Addendum entered and electronically signed by Yovanny Syed MD 02/05/25 18:25:
Hypokalemia
Original Note:
Today's Communication/Plan
-
Chest x-ray, troponin.
IV Lasix x 1
Assessment / Plan
Assessment / Plan
Ms. Lee is a 84-year-old female with a medical history of A-fib/flutter (on low-dose Eliquis, pacemaker in place), hypertension, CVA, hypothyroidism, and dementia who presented with shortness of breath and hypoxia. She was recently admitted in
November 2024 for treatment of sepsis secondary to UTI with bacteremia due to right ureteral calculus. At time of this admission she was significantly hypoxic with increased work of breathing. She was receiving oxygen via nonrebreather by EMS upon
arrival. She was unable to tolerate BiPAP in the ED. Labs revealed elevated BNP and troponin. Chest x-ray consistent with pulmonary edema and possible left basilar pneumonia. She was loaded with full-strength aspirin and started on IV heparin
drip. She was also started on IV diuretic and antibiotics. Of note, during previous admission in November she was also evaluated by cardiology for troponin elevation and plan was for medical management alone as she is a very poor candidate for any
invasive procedures. This is also in line with patient and family's goals of care. She has been admitted for further evaluation and management of acute respiratory failure with hypoxia suspected due to acute heart failure and possible pneumonia.
Acute respiratory failure with hypoxia:
-Initially requiring nonrebreather mask, now on room air.
- Unclear if it was an aspiration or secondary to pulmonary edema
- Dr. Strong Discussed patient's status with her daughters Ismael and Isabella, they do not want their mother to be recurrently hospitalized as she has been recently, they are considering a do not hospitalize option versus hospice care arrangements
at her long-term care facility
- transitioned to oral antibiotics in anticipation of discharge back to long-term care facility continue with Augmentin to complete a total 5-day course of antibiotics
Acute HFpEF:
- Echo in November 2024 showed preserved ejection fraction moderate mitral regurgitation
- Patient with recurrent shortness of breath symptoms with bilateral lower zone crackles. Check a chest x-ray. Will give a dose of Lasix. If recurrent pulmonary edema and based on patient wishes goals of care by family consider hospice
- Restarted verapamil at reduced dose of 120 mg daily
NSTEMI:
- No plan for invasive procedures per patient and family goals of care, would be a poor candidate for invasive procedures anyway
-Discontinued IV heparin drip after 48 hours
- Low-dose aspirin and statin
- Appreciate cardiology guidance
A-fib:
- Resumed anticoagulation with low-dose Eliquis now that IV heparin has been discontinued
- Continue verapamil at reduced dose of 120 mg daily
Hypotension:
- Improved, will monitor
CODE STATUS: DNR
Discussed with RN
Total time spent on today's encounter was 52 minutes which included time spent in counseling the patient/family regarding diagnosis and treatment plan as listed above, goals of care, and symptom management. Case was discussed with nursing staff,
specialists, and care coordinators/case management. All labs and imaging personally reviewed by me. Remainder the time spent in detailed review of previous records, lab data, imaging, and other medical provider documentation.
-If recurrent pulmonary edema will discuss with the family regarding transitioning to hospice.
Anticipated Discharge: Today
Subjective/Interval History
-
Date of Service: February 03, 2025
She initially thought she was in tenriism. Was able to reorient. She knew it is Monday. Cannot tell me the month but thought the year was 2023
No agitation.
Complains of some discomfort with the breathing today.
Objective Data
-
Labs:
Laboratory Results
02/03/25
04:57
Sodium 142
Potassium 3.3 L
Chloride 106
Carbon Dioxide 22
BUN 21 H
Creatinine 0.8
Glucose 114 H
Calcium 9.5
Vital Signs:
Vital Signs
Temp Pulse Resp BP Pulse Ox
97.9 F 63 20 144/78 91
02/03/25 07:31 02/03/25 08:49 02/03/25 07:31 02/03/25 08:49 02/03/25 07:31
I&O
02/02/25 02/03/25 02/04/25
06:59 06:59 06:59
Intake Total 240 / 240
Output Total 300 / 300
Balance -60 / -60
Review of Systems
-
Respiratory: Reports Trouble Breathing
Cardiac: Reports Chest Pain (?)
Abdomen/GI: Denies Abdominal Pain, Nausea or Vomiting
Neuro: Denies Dizzy
Physical Exam
-
General: Comfortable
Respiratory: Crackles (Bilateral lower zone) and Non Labored Respirations; Negative Accessory Resp Muscle Use
Cardiac: Regular Rhythm and S1/S2
GI: Soft
Musculoskeletal: No Edema
Neuro: Awake, Alert and Oriented (Self in person)
Psych: Calm and Confused
Data Reviewed
-
Labs: Labs Reviewed by me
[2025-02-03] MEDS: KCL 40 MEQ PO (10:08)
[2025-02-03] MEDS: LASIX 40 MG IV ×2 (10:09→17:31)
[2025-02-03 10:29] VITALS: BMI 18.9
--- NOTE | 2025-02-03 10:55 | W.PN.CARDCBS ---
Addendum entered and electronically signed by Jeannie Danielle MD 02/03/25 12:53:
Also would give 1 dose 40 of IV Lasix today.
Addendum entered and electronically signed by Jeannie Danielle MD 02/03/25 12:51:
I saw and examined the patient.
The Frame Opener's note was reviewed and I agree with the note.
Comment: Patient without complaint but does have some degree of memory loss. She does live in a detention previously was comfort care. She presents with hypoxia which is multifactorial in part related to heart failure with initially thought
preserved ejection fraction and possible aspiration pneumonia. She ruled in for non-Q wave myocardial infarction with troponin of 6. Echocardiogram today with ejection fraction 30 to 35%, global. Moderate to severe mitral regurgitation. Plan at
this time is to continue to conservatively manage.
Exam limited but stable without overt heart failure and she is not requiring oxygen.
I have reviewed telemetry and independently reviewed labs and EKGs. I have independently reviewed echocardiogram.
Plan at this time:
- Continue treatment of pneumonia per primary service
- Continue treatment of heart failure now with reduced ejection fraction
Start guideline directed medical therapy. Toprol has been added, losartan and spironolactone. Angioedema with lisinopril precludes the use of PATRICIA inhibitors and ARNI.
-Continue treatment of non-ST elevation myocardial infarction
No clear symptoms currently
EKG is paced normal. Pacemaker in place and stable. Telemetry stable
Aspirin added watch for bleeding on chronic oral anticoagulation
Risk factor modification. Statin added. Await lipids.
Continue conservative management for now.
Goals of care per primary service as noted previously was comfort care.
Original Note:
Today's Communication / Plan
-
Echo and repeat Troponin pending
Patient is not a candidate for invasive interventions due to comorbidities
Improved to RA since admission and treatment for PNA, jsut given her 2nd dose of Lasix 40 mg IV and will follow response
Check CVE
Changed verapamil 120 mg TID to Toprol XL 25 mg daily
Impression / Plan
-
PCP: Dr. Bari Lipscomb
Cardiology: Dr. CATHLEEN Chaudhary
EP: Dr. Umanzor
Impression:
Presented with hypoxia 01/31/25
Possible aspiration PNA
Acute HFpEF
NSTEMI, peak Troponin 6.48
Recent admission 11/2024 w/ urosepsis with bacteremia
Medtronic DC PPM, placed in 2012, generator change 07/12/24
PPM dependent
Permanent A-fib/typical flutter
Chronic Eliquis OAC
h/o orthostatic hypotension
HTN
Hyperlipidemia
Hypothyroidism
History of CVA
Remote history of EtOH use disorder
Echo 11/06/2015: EF 55%, no significant valve disease
Echo 12/17/2024: EF 50-55%, no RWMA, stage III diastolic dysfunction, moderate MR, mild AR, mild TR, mild TR, estimated PAP 35-40 mmHg
Echo 02/03/25: Report pending
Plan:
-Patient admitted with hypoxia 01/31/25, possibly aspiration PNA or CHF plus ACS.
-Patient completed IV antibiotics and is now ordered Augmentin.
-Patient is ordered a pureed diet with mildly thickened liquids
-From a cardiac standpoint, initial Troponin 0.172 and then peaked at 6.48 and trending down. Patient is not a candidate for cath given comorbidities and DNR code status.
-New to aspirin 81 mg daily this admission
-Check CVE, ordered by me 02/03/25. Patient was not taking a statin prior to admission and is new to Crestor 20 mg daily this admission.
-Patient was not taking BB prior to admission, but was chronically on verapamil SR 180 mg daily for h/o permanent Afib. Patient is now ordered verapamil short-acting 120 mg TID. Will stop verapamil and change to Toprol XL 25 mg daily given NSTEMI
and no obvious contraindication. Toprol XL 25 mg daily starting 02/03/25 PM ordered by me.
-Patient is not chronically on PATRICIA/ARB/ARNI due to h/o angioedema with lisinopril
-Patient is not a candidate for cardiac rehab due to living in long-term detention.
-Echo pending
-Patient with known permanent Afib and has a Medtronic DC PPM in place. Patient is pacer dependent.
-Outpatient dose of Eliquis 2.5 mg BID resumed 02/02/25 PM.
-Verapamil changed to Toprol XL as above.
-There is also concern for acute HFpEF. Echo pending
-Patient was given Lasix 40 mg IV x1 on 01/31/25 and 02/03/25. Patient was not taking a loop diuretic prior to admission and a previous order for Lasix 40 mg IV BID was never administered due to hypotension. Will follow along for diuretic response,
but oxygenation is improved and patient on room air with treatment thus far directed at PNA.
-Patient apparently admitted with paperwork that stated she was DNR with comfort measures only, but was not a 'do not hospitalize' at [facility] so they sent her to the ER and ER was then unable to get in touch with family quickly enough leading to
treatment patient has received thus far.
HPI: Kristi is an 84 year old female with PMH of PPM placement, permanent afib/flutter, orthostasis, HTN, HLD, hypothyroidism, CVA, and prior ETOH use disorder. She was recently admitted 11/2024 with urosepsis and bacteremia due to calculus at R
ureteropelvic junction. During this admission had elevated troponin and was evaluated by cardiology. Plan was for medical management. She then had what sounds like sudden onset respiratory distress/hypoxia yesterday evening and EMS was called. She
was hypoxic when EMS arrived and was placed on nonrebreather. On arrival to [facility] ER, attempted to place her on BiPAP, however did not tolerate this. Workup in ER concerning for acute heart failure with elevated proBNP and pulmonary edema
on CXR. She was started on IV lasix as well as IV antibiotics for possible pneumonia. Troponin again noted to be elevated and placed on heparin. 324mg of aspirin given in ER. Patient is not able to contribute much to history due to underlying
dementia. She denies any chest pain currently and nursing notes breathing has been improving, with O2 down to 6L.
Progress Note - Quality Director
Subjective
Date of Service: February 03, 2025
Denies pain, thinks breathing is fine and denies SOB
Objective
Labs:
02/02/25 06:34
02/03/25 04:57
Labs
Hgb 8.5 g/dL (12.0-16.0) L 02/02/25 06:34
Hct 25.4 % (37.0-47.0) L 02/02/25 06:34
Plt Count 180 10^3/uL (130-400) 02/02/25 06:34
PT 16.5 Sec (11.4-14.6) H 01/31/25 04:41
INR 1.28 01/31/25 04:41
APTT Cancelled 02/02/25 14:00
Sodium 142 mmol/L (135-145) 02/03/25 04:57
Potassium 3.3 mmol/L (3.5-5.1) L 02/03/25 04:57
BUN 21 mg/dl (7-17) H 02/03/25 04:57
Creatinine 0.8 mg/dL (0.6-1.0) 02/03/25 04:57
Glucose 114 mg/dl (70-99) H 02/03/25 04:57
Troponins
01/31/25 01/31/25 01/31/25
10:22 15:54 22:05
Troponin I 2.480 H* D 6.480 H* D 4.770 H* D
Vital Signs and I&O:
Vital Signs
Temp Pulse Resp BP Pulse Ox
97.9 F 63 20 144/78 92
02/03/25 07:31 02/03/25 08:49 02/03/25 07:31 02/03/25 08:49 02/03/25 09:48
Vital Signs
Temp Pulse Resp BP Pulse Ox
97.9 F 63 20 144/78 92
02/03/25 07:31 02/03/25 08:49 02/03/25 07:31 02/03/25 08:49 02/03/25 09:48
Intake & Output
02/01/25 02/02/25 02/03/25 02/04/25
06:59 06:59 06:59 06:59
Intake Total 0 / 0 240 / 240
Output Total 0 / 0 300 / 300
Balance 0 / 0 -60 / -60
Physical Exam
Physical Exam
GEN: AAO to person, place and situation. Knows she is in a hospital and that she normally lives at [facility]
HEENT: MMM
LUNGS: RA. No audible wheeze.
CV: A-sensed V-paced on tele
ABD: ND
EXT: No edema B/L
[2025-02-03 12:57] LABS: Troponin I 0.906 ng/ml
[2025-02-03] MEDS: DURAGESIC 12 MCG/HR PATCH 1 PATCH TRANSDERM (13:09)
[2025-02-03 13:20] LABS: HDL Cholesterol 38 mg/dl; LDL Cholesterol, Calculated 126 mg/dl; Total Cholesterol 195 mg/dl (50-199); Triglyceride 158 mg/dl (10-149); Very Low Density Lipoprotein 31 mg/dl (0-30)
[2025-02-03] MEDS: ALDACTONE 12.5 MG PO (13:43)
[2025-02-03] MEDS: COZAAR 25 MG PO (13:52)
--- NOTE | 2025-02-03 14:54 | PN.CDI ---
CDI
- -
CDI:
Physician Documentation Request
Admit Date: 01/31/25 06:36
Dear Doctor Kunal,
Clinical Indicators:
Patient admitted with acute HFpEF.
02/03 Potassium chloride 40 meq po x 1 ordered.
Potassium level:
02/03/25
04:57
Potassium 3.3 L
Based on the above, could you clarify in the progress notes, the appropriate diagnosis, if significant, that supports the above abnormalities and additional evaluation, monitoring and/or treatment rendered:
Hypokalemia
Abnormal lab value,clinically insignificant
Other, please specify
Use of terms such as suspected, likely, concern for, or probable (associated with a specific diagnosis that is being evaluated, monitored, or treated as if it exists) are acceptable and can be coded in the inpatient setting, when documented at the
time of discharge.
Thank you,
Nhung Hayes RN BSN
CDI Specialist
available via tiger text
Please use your independent medical judgment in providing your response.
--- NOTE | 2025-02-03 15:01 | CM ---
Patient from [facility] with Dx suspected PNA, HF, NSTEMI. Room air. Receiving PO Abx, IV Lasix. ST - dysphagia diet. PT; no skilled PT needed. Per nurse assessment; confused, forgetful.
Message from Dr Syed; She was symptomatic with shortness of breath. Await repeat chest x-ray. Likely discharge tomorrow. If chest x-ray shows persistent pulmonary edema we might need to discuss about goals of care and transitioning to hospice if
the family wishes.
Spoke with Eliud, [facility]; family contacted her thinking patient would be discharged back to SNF today. Provided clinical update re; symptomatic SOB today, CXR ordered and no d/c per MD. The phone for report [phone], fax
[phone].
CM called Dtr Ismael and daughter Isabella called back; she says she is taking the lead as the family contact as she is the eldest daughter. CM provided update that patient is not discharging today due to SOB and that a CXR was pending. She is asking
for a callback from the MD ---> message sent to Dr Syed.
CM continuing to follow for d/c needs.
Plan return to [facility] when medically ready.
[2025-02-03] MEDS: CRESTOR 20 MG PO (17:31)
[2025-02-03] MEDS: TOPROL XL 25 MG PO (19:38)
[2025-02-03] MEDS: TYLENOL 650 MG PO (21:45)
[2025-02-03] MEDS: KCL 20 MEQ PO (21:45)
[2025-02-03] MEDS: PEPCID 20 MG PO (21:45)
--- NOTE | 2025-02-03 23:38 | PTCARENOTE ---
assumed care of patient. pt is oriented to self only. pleasantly confused. bed alarm on. able to take pills with applesauce without issues. VSS. m/s level of care. inc. of bowel and bladder. care ongoing.
[2025-02-04 04:04] VITALS: BMI 18.1
[2025-02-04 04:07] LABS: Hematocrit 29.6 % (37.0-47.0); Hemoglobin 10.3 g/dL (12.0-16.0); Mean Corp Hgb Conc. 34.8 g/dL (33.0-37.0); Mean Corpuscular Hgb 30.3 pg (27.0-31.0); Mean Corpuscular Volume 87.1 fL (81.0-99.0); Mean Platelet Volume 10.7 fL (7.4-10.4); Platelet Count 181 10^3/uL (130-400); Red Cell Dist. Width 15.2 % (11.5-14.5); White Blood Cell Count 12.1 10^3/uL (4.8-10.8)
[2025-02-04] MEDS: SYNTHROID 50 MCG PO (04:17)
[2025-02-04 04:24] VITALS: BP 117/78
[2025-02-04] MEDS: AUGMENTIN 500 MG/125 MG 1 TABLET PO (08:33)
[2025-02-04] MEDS: NEURONTIN 300 MG PO ×2 (08:33→16:25)
[2025-02-04] MEDS: TOPROL XL 25 MG PO (08:33)
[2025-02-04] MEDS: COZAAR 25 MG PO (08:37)
[2025-02-04] MEDS: ELIQUIS 2.5 MG PO (08:38)
[2025-02-04] MEDS: ALDACTONE 12.5 MG PO (08:38)
[2025-02-04] MEDS: LOW STRENGTH ASPIRIN 81 MG PO (08:38)
[2025-02-04] MEDS: FEOSOL 325 MG PO (08:38)
[2025-02-04] MEDS: MYRBETRIQ EXTENDED RELEASE 50 MG PO (08:38)
[2025-02-04] MEDS: LOTRIMIN 1% CREAM 1 APPLIC TOPICAL (08:38)
--- NOTE | 2025-02-04 08:47 | W.PN.CARDCBS ---
Today's Communication / Plan
-
Transition to hospice is reasonable
Okay to continue furosemide, beta-lg, possibly spironolactone
Other meds unlikely to help
We will sign off, please call if questions
Impression / Plan
-
PCP: Dr. Bari Lipscomb
Cardiology: Dr. CATHLEEN Chaudhary
EP: Dr. Umanzor
Impression:
Presented with hypoxia 01/31/25
Possible aspiration PNA
Acute HFpEF
NSTEMI, peak Troponin 6.48
Recent admission 11/2024 w/ urosepsis with bacteremia
[employer] DC PPM, placed in 2012, generator change 07/12/24
PPM dependent
Permanent A-fib/typical flutter
Chronic Eliquis OAC
h/o orthostatic hypotension
HTN
Hyperlipidemia
Hypothyroidism
History of CVA
Remote history of EtOH use disorder
Echo 11/06/2015: EF 55%, no significant valve disease
Echo 12/17/2024: EF 50-55%, no RWMA, stage III diastolic dysfunction, moderate MR, mild AR, mild TR, mild TR, estimated PAP 35-40 mmHg
Echo 02/03/25: EF 30-35%, stage II diastolic dysfunction, global hypokinesis, normal RV, moderate to severe MR, mild aortic regurgitation, mild TR, pulmonary artery pressure 42, in November EF was 50 to 55%, mitral regurgitation was moderate
Plan:
At present she remains in heart failure and although given mental status changes it is difficult to ascertain I think she is in some respiratory distress.
Given her multiple comorbidities, and her previous strategy for conservative/comfort measures, it makes sense to transition to hospice. Spoke with Dr. Syed who is in communication with the family, and it seems to be moving in that direction.
Would favor continued IV Lasix and transition to oral Lasix for comfort, along with morphine as needed.
Obviously at this point, there is no utility of cardiac meds/GDMT for heart failure and CAD. It would be reasonable to continue oral furosemide and possibly a beta-lg to prevent angina for comfort, but would not continue other cardiac meds.
Okay to continue spironolactone to assist with potassium.
I would be comfortable stopping aspirin, apixaban, rosuvastatin, losartan, as these would be unlikely to make her feel better.
We will sign off, please call if questions.
HPI: Kristi is an 84 year old female with PMH of PPM placement, permanent afib/flutter, orthostasis, HTN, HLD, hypothyroidism, CVA, and prior ETOH use disorder. She was recently admitted 11/2024 with urosepsis and bacteremia due to calculus at R
ureteropelvic junction. During this admission had elevated troponin and was evaluated by cardiology. Plan was for medical management. She then had what sounds like sudden onset respiratory distress/hypoxia yesterday evening and EMS was called. She
was hypoxic when EMS arrived and was placed on nonrebreather. On arrival to [facility] ER, attempted to place her on BiPAP, however did not tolerate this. Workup in ER concerning for acute heart failure with elevated proBNP and pulmonary edema
on CXR. She was started on IV lasix as well as IV antibiotics for possible pneumonia. Troponin again noted to be elevated and placed on heparin. 324mg of aspirin given in ER. Patient is not able to contribute much to history due to underlying
dementia. She denies any chest pain currently and nursing notes breathing has been improving, with O2 down to 6L.
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
Subjective
Date of Service: February 04, 2025:
She is tachypneic, can state her first name, unclear if she is experiencing shortness of breath but I believe that she probably is
Medications: Famotidine, iron, Neurontin, levothyroxine 50 mcg daily, fentanyl patch, Myrbetriq, aspirin 81 mg a day, rosuvastatin 20 mg a day, apixaban 2.5 twice daily, Augmentin 1 tab every 12, metoprolol succinate 25 mg a day, spironolactone 12.5
mg a day, losartan 25 mg a day, verapamil has been stopped
130/95, pulse 89, respiratory 23, afebrile, sats 94%, frail, very ill-appearing, rales,, Gerardo on legs, not much edema,Mitral regurgitation murmur, JVD modestly elevated
White count 12.1, hemoglobin 10.3, troponin is 0.906, peaked at 6.4 potassium yesterday 3.3, BUN/creatinine 21 and 0.8
ECG: Sinus rhythm V paced
Objective
Labs:
02/04/25 03:53
02/03/25 04:57
Labs
Hgb 10.3 g/dL (12.0-16.0) L D 02/04/25 03:53
Hct 29.6 % (37.0-47.0) L 02/04/25 03:53
Plt Count 181 10^3/uL (130-400) 02/04/25 03:53
PT 16.5 Sec (11.4-14.6) H 01/31/25 04:41
INR 1.28 01/31/25 04:41
APTT Cancelled 02/02/25 14:00
Sodium 142 mmol/L (135-145) 02/03/25 04:57
Potassium 3.3 mmol/L (3.5-5.1) L 02/03/25 04:57
BUN 21 mg/dl (7-17) H 02/03/25 04:57
Creatinine 0.8 mg/dL (0.6-1.0) 02/03/25 04:57
Glucose 114 mg/dl (70-99) H 02/03/25 04:57
Troponins
02/03/25
10:18
Troponin I 0.906 H*
Vital Signs and I&O:
Vital Signs
Temp Pulse Resp BP Pulse Ox
36.8 C 89 23 130/95 94
02/03/25 22:32 02/04/25 08:33 02/04/25 04:24 02/04/25 08:33 02/03/25 20:10
Vital Signs
Temp Pulse Resp BP Pulse Ox
36.8 C 89 23 130/95 94
02/03/25 22:32 02/04/25 08:33 02/04/25 04:24 02/04/25 08:33 02/03/25 20:10
Intake & Output
02/02/25 02/03/25 02/04/25 02/05/25
07:59 07:59 07:59 07:59
Intake Total 240 / 240
Output Total 300 / 300
Balance -60 / -60
Physical Exam
Physical Exam
See above
--- NOTE | 2025-02-04 10:11 | W.PN.HOSP.TC ---
Today's Communication/Plan
-
DC
Assessment / Plan
Assessment / Plan
Ms. Lee is a 84-year-old female with a medical history of A-fib/flutter (on low-dose Eliquis, pacemaker in place), hypertension, CVA, hypothyroidism, and dementia who presented with shortness of breath and hypoxia. She was recently admitted in
November 2024 for treatment of sepsis secondary to UTI with bacteremia due to right ureteral calculus. At time of this admission she was significantly hypoxic with increased work of breathing. She was receiving oxygen via nonrebreather by EMS upon
arrival. She was unable to tolerate BiPAP in the ED. Labs revealed elevated BNP and troponin. Chest x-ray consistent with pulmonary edema and possible left basilar pneumonia. She was loaded with full-strength aspirin and started on IV heparin
drip. She was also started on IV diuretic and antibiotics. Of note, during previous admission in November she was also evaluated by cardiology for troponin elevation and plan was for medical management alone as she is a very poor candidate for any
invasive procedures. This is also in line with patient and family's goals of care. She has been admitted for further evaluation and management of acute respiratory failure with hypoxia suspected due to acute heart failure and possible pneumonia.
Acute respiratory failure with hypoxia:
-Initially requiring nonrebreather mask, now on room air.
- Unclear if it was an aspiration or secondary to pulmonary edema
- Dr. Strong Discussed patient's status with her daughters Ismael and Isabella, they do not want their mother to be recurrently hospitalized as she has been recently, they are considering a do not hospitalize option versus hospice care arrangements
at her long-term care facility
- transitioned to oral antibiotics in anticipation of discharge back to long-term care facility continue with Augmentin to complete a total 5-day course of antibiotics
Acute HFpEF:
- Echo in November 2024 showed preserved ejection fraction moderate mitral regurgitation
- Weight has come down. Patient has come off of oxygen. Chest x-ray from today Low lung volumes are again seen. Bilateral opacities, most prominent in the left lung base are again seen without significant change. Bilateral opacities may be
aspirational/primary pulmonary issue than fluid. Continue with diuretics per cardiology.
- Restarted verapamil at reduced dose of 120 mg daily
NSTEMI:
- No plan for invasive procedures per patient and family goals of care, would be a poor candidate for invasive procedures anyway
-Discontinued IV heparin drip after 48 hours
- Low-dose aspirin and statin
- Appreciate cardiology guidance
A-fib:
- Resumed anticoagulation with low-dose Eliquis now that IV heparin has been discontinued
- Continue verapamil at reduced dose of 120 mg daily
Hypotension:
- Improved, will monitor
CODE STATUS: DNR
Discussed with RN
Discussed with cardiology
Discussed with daughter Isabella this morning. She understands the poor prognosis from heart failure, non-ST elevation MS, possible aspirational pneumonia, A-fib and advanced age.
The prognosis is poor for her. High risk for recurrent issues of cardiopulmonary processes and readmissions. Daughter has made it clear that she wants mom to be comfortable when symptoms arise. Her goal is comfort. We discussed about transition
to hospice and she is agreeable.
Will discharge patient to [facility] on hospice.
Discussed with case management.
Total time of discharge 35 minutes
Anticipated Discharge: Today
Subjective/Interval History
-
Date of Service: February 04, 2025
Alert but disoriented.
Noted to be more tachypneic by RN today.
Patient unable to communicate his symptoms to me.
Objective Data
-
Labs:
Laboratory Results
02/04/25
03:53
WBC 12.1 H
Hgb 10.3 L D
Hct 29.6 L
Plt Count 181
Vital Signs:
Vital Signs
Temp Pulse Resp BP Pulse Ox
98.2 F 89 23 130/95 94
02/03/25 22:32 02/04/25 08:33 02/04/25 04:24 02/04/25 08:33 02/04/25 10:01
I&O
02/03/25 02/04/25 02/05/25
06:59 06:59 06:59
Intake Total 240 / 240
Output Total 300 / 300
Balance -60 / -60
Review of Systems
-
Unable to obtain full review of systems at this time due to: Other (Cognitively impaired)
Physical Exam
-
General: Respiratory Distress (Mild); Negative Comfortable
HEENT: Negative Moist Mucous Membranes (Dry)
Respiratory: Crackles (Bilateral lower zone); Negative Wheezes or Accessory Resp Muscle Use
Cardiac: S1/S2 and Irregular Rhythm; Negative Tachycardic
GI: Soft
Neuro: Awake, Alert and No Motor Deficits (Difficult to examine because of cognitive impairment but moves all 4 limbs; left eye ptosis noted which apparently is chronic); Negative Oriented or Slurred Speech
Psych: Calm and Confused
Data Reviewed
-
Diagnostic Radiology: Report Reviewed by me (Chest x-ray)
Labs: Labs Reviewed by me
--- NOTE | 2025-02-04 12:27 | CM ---
Patient from [facility] with Dx suspected PNA, HF, NSTEMI. Room air. Per nurse assessment; confused, forgetful.
CM Consult: Hospice
Spoke with patient's daughter Isabella;
explained hospice philosophy & benefits.
she agrees to her mother returning to [facility] today with [facility].
Daughter and son will be here with grand-children at 3pm so the grand-kids can see her here rather than at SNF.
IMM completed and copy sent to her email at [email or web address].
Spoke with [facility] (fax [phone]); they are able to accept the referral and can begin service this evening. Miya spoke with patient's daughter and answered her questions about meds. She sent the daughter paperwork to sign
onto hospice.
Spoke with [facility]; they do have a contract with [facility] and are aware that family agreed to their services. They are able to accept the patient back today with [facility]. The phone for report [phone], fax
[phone].
OOH DNR on chart.
Plan return to [facility] today by ambulance with [facility].
[2025-02-04] MEDS: KCL 40 MEQ PO (12:31)
[2025-02-04] MEDS: LASIX 80 MG PO (13:47)
--- NOTE | 2025-02-04 14:21 | PN.CDI ---
CDI
- -
CDI:
Physician Documentation Request
Admit Date: 01/31/25 06:36
Dear Doctor Kunal,
Clinical Indicators:
Patient admitted with NSTEMI.
02/03 Echocardiogram Report, 'Compared to prior study 12/17/2024 ejection fraction has decreased from 50 to 55% to now 30 to 35%'
02/04 PN, 'Acute HFpEF'
Please clarify the most likely type of CHF you are evaluating, treating or monitoring.
Acute HFrEF
Other, please specify
Use of terms such as suspected, likely, concern for, or probable (associated with a specific diagnosis that is being evaluated, monitored, or treated as if it exists) are acceptable and can be coded in the inpatient setting, when documented at the
time of discharge.
Thank you,
Nhung Hayes RN BSN
CDI Specialist
available via tiger text
Please use your independent medical judgment in providing your response.
--- NOTE | 2025-02-04 15:53 | PTCARENOTE ---
Report called to [facility] received report. 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
[2025-02-04] MEDS: CRESTOR 20 MG PO (16:28)
--- NOTE | 2025-02-04 17:47 | W.DCSUMMARY ---
Discharge Summary
Discharge Data
Date of Admission: 01/31/25
Date of Discharge: 02/04/25
-
Pending Results: No
Hospital Course
Primary diagnosis:
Acute respiratory failure with hypoxia
Acute heart failure with reduced EF
Non-ST elevation VT
Possible aspirational pneumonia
Secondary diagnosis:
Pulmonary toilet fibrillation
Permanent pacemaker in place and dependent
Essential hypertension
Hyperlipidemia
Hospital course:
Ms. Lee is a 84-year-old female with a medical history of A-fib/flutter (on low-dose Eliquis, pacemaker in place), hypertension, CVA, hypothyroidism, and dementia who presented with shortness of breath and hypoxia. She was recently admitted in
November 2024 for treatment of sepsis secondary to UTI with bacteremia due to right ureteral calculus. At time of this admission she was significantly hypoxic with increased work of breathing. She was receiving oxygen via nonrebreather by EMS upon
arrival. She was unable to tolerate BiPAP in the ED. Labs revealed elevated BNP and troponin. Chest x-ray consistent with pulmonary edema and possible left basilar pneumonia.
She had non-ST ration VT with a troponin peak of 6.48. She was initially treated with IV heparin. She had an echocardiogram which showed EF of 30-35%, moderate to severe MR, pulmonary systolic pressures of 40 to millimeters of mercury. Compared
to study from November 2024 EF reduced from 50-55 to now 30-35. The mitral regurgitation is moderate to severe now compared to moderate on the prior echo.
She did not improve with diuresis and weight come down from 109 to 102 pounds. She had resolved hypoxia but persisted to have shortness of breath. Repeat chest x-ray was obtained because of persistent crackles despite diuresis and resolution of
hypoxia -shows bilateral Bilateral opacification most prominent in the left lung base without significant change. She was treated with antibiotics for presumed aspiration pneumonia. She was on a modified diet.
With her advanced age, now systolic dysfunction / pulm edema /non-ST elation VT and aspiration pneumonia prognosis was guarded. Despite treatment she still had some shortness of breath and tachypnea.
Discussed with the family ensued regarding goals of care , daughters wanted her to be comfortable and she was transitioned into hospice at the facility.
Consultants on board:
Cardiology-Graett Malhotra
Discharge Plan
-
Patient Disposition: Senior Living/SNF
Discharge Diagnosis/Procedures: Acute heart failure with preserved EF, non-ST elation VT, atrial fibrillation, aspirational pneumoniaid
Additional Diets: IDDSI 4 diet,mildly thick
Activity: As tolerated
Driving Restrictions: No driving
Bathing Restrictions: None
Other Services: Hospice
Instructions: *[facility] Heart Failure Instructions
Referrals:
UNKNOWN - PT DOES,NOT KNOW [Family Provider] -
Prescriptions:
New
spironolactone 25 mg Tablet
12.5 mg PO DAILY Qty: 1 0RF
amoxicillin-pot clavulanate 500-125 mg Tablet
1 tab PO Q12 Qty: 4 0RF
Rx Instructions:
for 2 more days
losartan 25 mg Tablet
25 mg PO DAILY Qty: 1 0RF
aspirin 81 mg Tablet,Chewable
81 mg PO DAILY Qty: 1 0RF
metoprolol succinate 25 mg Tablet Extended Release 24 Hr
25 mg PO DAILY Qty: 1 0RF
rosuvastatin 20 mg Tablet
20 mg PO QPM Qty: 1 0RF
furosemide [Lasix] 20 mg tablet
20 mg PO DAILY Qty: 1 0RF
Continued
levothyroxine 50 MCG tablet
50 mcg PO DAILY
Eliquis 2.5 mg Tablet
2.5 mg PO BID
famotidine 20 mg Tablet
20 mg PO HS
fentanyl 12 mcg/hr Patch 72 Hour
1 patch TRANSDERMAL Q72H
ferrous sulfate 325 mg (65 mg iron) Tablet
325 mg PO DAILY
mirabegron [Myrbetriq] 50 mg Tablet Extended Release 24 Hr
50 mg PO DAILY
ascorbic acid (vitamin C) 500 mg Tablet
500 mg PO BID
magnesium hydroxide [Milk of Magnesia] 400 mg/5 mL Suspension
2,400 mg PO HSPRN PRN (Reason: constipation)
bisacodyl [Dulcolax (bisacodyl)] 10 mg Suppository
10 mg MD DAILYPRN PRN (Reason: if mom is ineffective)
Preparation H Maximum Strength 0.25-1 % Cream
1 applic MD BIDPRN PRN (Reason: hemmorriods)
docusate sodium 100 MG capsule
100 mg PO DAILYPRN PRN (Reason: constipation)
acetaminophen 325 mg Tablet
650 mg PO HS
acetaminophen 325 mg Tablet
650 mg PO Q4HPRN PRN (Reason: mild pain/fever>100.4)
lidocaine 4 % Adhesive Patch,Medicated
2 patch TOPICAL DAILYPRN PRN (Reason: lower back pain)
verapamil 180 mg tablet extended release
180 mg PO DAILY
gabapentin 300 mg Capsule
300 mg PO TID
Discharge Orders:
Discharge Patient (As Directed); Ordered 02/04/25
Ordered By: Yovanny Syed
Discharge Date and Time
Print Language: MOHAWK
--- NOTE | 2025-02-04 17:53 | PTCARENOTE ---
Patient transferred to [facility] via Ambulance. Patient transported with all known belongings. 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
--- NOTE | 2025-02-05 11:44 | W.HF.CON ---
Heart Failure
- LV Function
Left ventricular function study result: LV Ejection fraction </= 35%
Ejection Fraction Percentage: 30-35
- ARNI
Patient already on ARNI: No
Heart Failure ARNI Contraindication: Comfort Measures Only
- ACEI/ARB
Patient already on ACEI/ARB: Yes
- Beta Luís
Patient already on Evidence Based Beta Luís: Yes
- Mineralocorticord Receptor Antagonist
Patient already on MRA: Yes
- SGLT-2 Inhibitor
Patient already on SGLT-2 Inhibitor: No
Heart Failure SGLT-2 Inhibitor Contraindication: Comfort Measures
- Afib Anticoagulation
Patient already on Anticoagulation for Afib: Yes
- NYHA CHF Classification
NYHA CHF Classification Level: Class III - Symptoms w/ min exertion, interferes w/ nml daily activity
- ACC/AHA Stage
ACC/AHA Stage: Stage D: Advanced Heart Failure
== END 2025-02-04 17:52 | DRG 280 ==
LOC: IMU 06:36
PROVIDERS: Internal Medicine; Physician Assistant; ADMITTING PHYSICIAN Internal Medicine; ATTENDING PHYSICIAN Internal Medicine; CONSULT PHYSICIAN Internal Medicine Cardiovascular Disease; EMERGENCY PHYSICIAN Student in an Organized Health Care Education/Training Program
PROC: 5A09357 Assistance with Respiratory Ventilation, Less than 24 Consecutive Hours, Continuous Positive Airway Pressure (ICD-10-PCS; 2025-01-31)
DX: I21.4 Non-ST elevation (NSTEMI) myocardial infarction (principal); I50.23 Acute on chronic systolic (congestive) heart failure; J96.01 Acute respiratory failure with hypoxia; J69.0 Pneumonitis due to inhalation of food and vomit; I48.21 Permanent atrial fibrillation; R64 Cachexia; Z68.1 Body mass index [BMI] 19.9 or less, adult; Z51.5 Encounter for palliative care; I11.0 Hypertensive heart disease with heart failure; F03.90 Unspecified dementia, unspecified severity, without behavioral disturbance, psychotic disturbance, mood disturbance, and anxiety; D63.8 Anemia in other chronic diseases classified elsewhere; R13.10 Dysphagia, unspecified; N32.81 Overactive bladder; G89.29 Other chronic pain; M54.50 Low back pain, unspecified; H02.402 Unspecified ptosis of left eyelid; R26.2 Difficulty in walking, not elsewhere classified; H54.62 Unqualified visual loss, left eye, normal vision right eye; E03.9 Hypothyroidism, unspecified; K21.9 Gastro-esophageal reflux disease without esophagitis; E78.00 Pure hypercholesterolemia, unspecified; F10.11 Alcohol abuse, in remission; I34.0 Nonrheumatic mitral (valve) insufficiency; E87.6 Hypokalemia; I95.9 Hypotension, unspecified; Z60.2 Problems related to living alone; Z66 Do not resuscitate; Z86.73 Personal history of transient ischemic attack (TIA), and cerebral infarction without residual deficits; Z87.440 Personal history of urinary (tract) infections; Z87.11 Personal history of peptic ulcer disease; Z95.0 Presence of cardiac pacemaker; Z79.890 Hormone replacement therapy; Z11.52 Encounter for screening for COVID-19; Z79.01 Long term (current) use of anticoagulants; Z79.891 Long term (current) use of opiate analgesic; Z90.710 Acquired absence of both cervix and uterus; Z88.8 Allergy status to other drugs, medicaments and biological substances; Z87.442 Personal history of urinary calculi
CPT/HCPCS: 93308; 71045; 80048; 80061; 83735; 83880; 84100; 84145; 84443; 84484; 85025; 85027; 85610; 85730; 87070; 87502; 87811; 92526; 92610; 93005; 93321; 93325; 94640; 96365; 96366; 96375; 99285